=== PATIENT | male | born 1935 | race Caucasian/White ===

== ENCOUNTER 2016-09-04 11:56 | Inpatient (IN) | payer MEDICARE ==
[~2016-09-04] VITALS: Ht 180.3 cm; Wt 91.6 kg
[2016-09-20] MEDS ORDERED: ACET-703 PO (09:55)
[2016-09-20] MEDS ORDERED: AMLO10TA2 PO (09:55)
[2016-09-20] MEDS ORDERED: CHOL5000 PO (09:55)
[2016-09-21] MEDS ORDERED: SODIUM CHLORID 0.9% 500 ML IV PRN (05:45)
[2016-09-21] MEDS ORDERED: POVIDONE IODINE 5% (ANTISEPSIS KIT) 4 APPLICATIONS EACH NARE PRN (05:45)
[2016-09-21] MEDS ORDERED: ceFAZolin 2 GM PREMIX 50 ML IV SCH ×2 (05:45→07:00)
[2016-09-21] MEDS ORDERED: LACTATED RINGER'S 1000 ML IV PRN (05:45)
[2016-09-21] MEDS ORDERED: INSULIN HUMAN REGULAR 1,000 UNITS/10 ML VIAL SQ PRN (05:45)
[2016-09-21] MEDS ORDERED: METOPROLOL TARTRATE 25 MG TAB PO PRN (05:45)
[2016-09-21] MEDS ORDERED: CHLORHEXIDINE GLUCONATE 2 % 1 PACK (2 CLOTHS) TOPICAL PRN (05:45)
[2016-09-21] MEDS ORDERED: GELFOAM SIZE 100 ONE (06:15)
[2016-09-21 06:19] VITALS: BP 145/71; PULSE 67; RESP 20; TEMP 97.9; O2SAT 98
[2016-09-21] MEDS ORDERED: BUPIVACAINE/EPINEPHRINE 0.25% 50 ML VIAL ONE (06:30)
[2016-09-21] MEDS ORDERED: FAMOTIDINE 20 MG/2 ML VIAL ONE (07:23)
[2016-09-21] MEDS ORDERED: ACETAMINOPHEN 1000 MG/100 ML VIAL IV ONE (07:23)
[2016-09-21] MEDS ORDERED: SUGAMMADEX SODIUM 200 MG/2 ML VIAL IV PUSH ONE ×2 (07:23)
[2016-09-21] MEDS ORDERED: PROPOFOL 200 MG/20 ML AMP IV ONE (08:05)
[2016-09-21] MEDS ORDERED: NEOSTIGMINE 3 MG/3 ML SYR IV ONE (08:06)
[2016-09-21] MEDS ORDERED: ePHEDrine/NS 25 MG/5 ML SYR IV ONE (08:06)
[2016-09-21] MEDS ORDERED: ONDANSETRON HCL 4 MG/2 ML VIAL IV PUSH ONE (08:06)
[2016-09-21] MEDS ORDERED: NORMOSOL R INJ 2,000 ML IV ONE (08:07)
[2016-09-21] MEDS: SODIUM CHLOR 0.9% 1000 ML INJ 1,000 ML IV SCH ×2 (12:36→20:27)
[2016-09-21] MEDS ORDERED: Post-op Orders (for Pharmacy) MISC XX ONE (12:45)
[2016-09-21] MEDS ORDERED: SODIUM CHLORIDE 0.9% FLUSH 10 ML FLUSH IV FLUSH PRN (12:45)
[2016-09-21] MEDS ORDERED: oxyCODONE/ACETAMINOPHEN 5 MG/325 MG TAB PO PRN ×2 (12:45)
[2016-09-21] MEDS ORDERED: NALOXONE HCL 0.4 MG/ML AMP IV PRN (12:45)
[2016-09-21] MEDS ORDERED: HYDROmorphone HCL PF 1 MG/ML VIAL IV PRN (12:45)
[2016-09-21] MEDS ORDERED: *morphine SULFATE 8 MG/ML PERIprocedure ONLY ONE ×2 (12:54→13:08)
[2016-09-21] MEDS ORDERED: fentaNYL CITRATE 250 MCG/5 ML AMP ONE (13:37)
[2016-09-21] MEDS ORDERED: MIDAZOLAM HCL 2 MG/2 ML VIAL ONE (13:37)
[2016-09-21 14:02] LABS: HEMATOCRIT 32.3 % (39.0-51.0); MEAN CELL VOLUME 97.6 FL (80.0-100.0); MEAN CORPUSCULAR HGB CONC 33.8 % (32.0-36.0); PLATELET COUNT 213 TH/MM3 (150-450); RED BLOOD COUNT 3.31 MIL/MM3 (4.50-5.90); RED CELL DISTRIBUTION WIDTH 12.9 % (11.6-17.2); REVIEW FLAG FINAL; WHITE BLOOD COUNT 11.2 TH/MM3 (4.0-11.0)
[2016-09-21] MEDS: HYDROmorphone HCL PCA 6 MG/30 ML IV SCH (14:14)
[2016-09-21 14:29] LABS: BICARBONATE 20.4 MEQ/L (21.0-32.0); POTASSIUM 4.4 MEQ/L (3.5-5.1)
--- NOTE | 2016-09-21 15:30 | MP ---
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 SURGEON Michael Gonsales MD DIRECT MAIL CLERK Bridger Baez MD PROCEDURE PERFORMED 1. Cystoscopy. 2. Transurethral resection of the left ureteral orifice. 3. Right ureteral stent removal. 4. Left hand-assisted laparoscopic nephroureterectomy. PERTINENT FINDINGS 1. Successful coring out of the left ureteral orifice and bladder cuff. 2. Removal of the right ureteral stent. 3. Successful removal of the entire left renal unit with the bladder cuff and ureter without any violation of the kidney or gross tumor spillage. HISTORY OF PRESENT ILLNESS Taran Diaz is a 81-year-old male who was found to have bilateral upper tract urothelial carcinoma. The right distal ureter was found to have low grade urothelial cancer and this was ablated completely with laser ablation. The left kidney had significant amount of proximal urothelial carcinoma and attempts at ablation via laser was unsuccessful. The patient then completed a renal scan which identified minimal function to the left renal unit with a stent in place. Therefore, it was decided to remove the left renal unit with a nephroureterectomy given the high-grade disease on the left and minimal function of the left renal unit. The patient does have poor overall renal function with a creatinine greater than 2.5 and a GFR around 30. The patient understands that surgery may lead him to dialysis. The risks and benefits of the procedure were discussed in detail with the patient, he understands and agrees with the above plan. PROCEDURE IN DETAIL After proper informed consent was obtained, the patient was brought to the operating room and laid supine on the operating table. The patient was placed under general anesthesia. Bilateral SCDs were then placed. The patient was placed in lithotomy position, prepped and draped in standard sterile fashion. After appropriate timeout was completed, the rigid cystoscope was inserted through the urethrea into the bladder. The urethra mucosa was unremarkable without abnormalities or lesions identified throughout. Upon entering the bladder bilateral ureteral orifices with bilateral stents in place were noted. The bladder was investigated with a 70 degree lens which did not identify any abnormalities throughout. At this point attention was turned to the right ureteral orifice, grasping the right ureteral stent and this was removed from the right collecting system and bladder. At this point attention was turned to the left ureteral orifice. A Carson knife was then used and resection of the ureteral orifice was then completed down to the level of fat and beyond. After adequate resection of the ureteral orifice and bladder cuff, a 20-Chinese Valentine catheter was placed. The patient was then repositioned in a modified right lateral decubitus position with a kidney rest and slight flexion with all pressure points padded. Following this the patient was reprepped and draped. A midline incision was then made above the umbilicus approximately 7 cm in length. There is no evidence of adhesions noted upon entering through the peritoneum. At this point the Gelform pad was then placed into the wound. Following this the arthroscopic camera was inserted through the Gelform and visualized two ports placement at 5 mm port in the upper midline as well as a lower port in the 5 mm lower midline. At this point the hand was inserted into the hand port gel and the camera was placed into the 5 mm port and below the hand port and careful dissection was carried out around the kidney. The line of Toldt was taken down and the colon reflected medially. This was carried out all the way to the left iliacs. Following this there was significant fat noted around the kidney and careful dissection was carried out around the kidney in order to remove it in its entirety. The dissection was carried out freeing up the lateral and inferior portions as well as the posterior portions of the kidney. The superior aspect of the kidney was then freed up with blunt dissection and LigaSure. At this point all that remained was the hilum. This was carefully dissected out and the artery and vein were identified. The Endovascular stapler was then used to clamp across the hilum. After this was completed successfully no obvious bleeding was noted. Therefore, attention was then turned to freeing up the ureter. The ureter was carefully dissected from the left renal pelvis down to the level of the bladder. The ureter was able to be plucked from the bladder without difficulty and the entire specimen with the kidney and ureter successfully removed without any gross spillage of any tumor. Following this hemostasis was meticulously achieved. The patient's belly was irrigated with sterile water. At this point the midline fascial incision was closed using 1-0 PDS sutures. The skin was then stapled. The remaining port sites were then closed with cisco. The patient was then awoken from anesthesia and taken to Post Anesthesia Care Unit in good and stable condition. The patient tolerated the procedure without complication. DISPOSITION The patient will be admitted to the ICU overnight as careful observation. The patient will likely remain in house for a few days to insure his renal function stabilizes and that he recovers well. Vignesh Davenport/LENA /12:48 PM /3:08 PM MTDGloria
[2016-09-21 16:15] VITALS: BP 145/73; PULSE 80; RESP 12; TEMP 97.7; O2SAT 95
--- NOTE | 2016-09-21 17:07 | PD.CONS ---
HPI Service Critical Care Medicine Consult Requested By Urology Service Reason for Consult Critical Care Management Primary Care Physician Wilver Davis Jr, MD History of Present Illness 81 y/o man underwent uncomplicated left nephrectomy including ureter down to bladder today. Comes back to ICU looking great, breathing comfortably, warm and well perfused. Lungs: Clear, no wheezes or crackles. Comfortable respiratory pattern. Heart: NL S1S2, no m,r. No JVD. Neuro: Sleepy but awakes to minimal stimulation. Protects airway well. Overall impression: Stable respiratory and hemodynamic function s/p surgery. I anticipate no problems aside from moderate hypertension. Will write for prn meds. We will follow urine output closely, volume load if necessary, and keep Urology informed of any major issues - particularly urine output. Doris Watkins M.D. Social Services Past Family Social History Allergies: Coded Allergies: Medrol (Verified Adverse Reaction, Unknown, SHAKING, HYPER, INSOMNIA, ) Uncoded Allergies: steroids (Adverse Reaction, Severe, Irritability/Anxiety, 09/20/16) hyper and on edge Physical Exam Vital Signs Vital Signs Date Time Temp Pulse Resp B/P Pulse Ox O2 Delivery O2 Flow Rate FiO2 09/21/16 14:14 16 09/21/16 12:42 97.6 61 16 128/62 98 Nasal Cannula 3 09/21/16 06:19 97.9 67 20 145/71 98 Laboratory Laboratory Tests Test 09/21/16 09/21/16 06:25 13:48 Blood Type A POSITIVE Antibody Screen NEGATIVE Crossmatch Leukocyte-Reduced Red Blood Cells Blood Bank Comment White Blood Count 11.2 Red Blood Count 3.31 Hemoglobin 10.9 Hematocrit 32.3 Mean Corpuscular Volume 97.6 Mean Corpuscular Hemoglobin 33.0 Mean Corpuscular Hemoglobin 33.8 Concent Red Cell Distribution Width 12.9 Platelet Count 213 Mean Platelet Volume 6.8 Sodium Level 138 Potassium Level 4.4 Chloride Level 108 Carbon Dioxide Level 20.4 Anion Gap 10 Blood Urea Nitrogen 29 Creatinine 2.18 Estimat Glomerular Filtration 29 Rate Random Glucose 157 Calcium Level 7.9 Result Diagram: 09/21/16 1348 09/21/16 1348 Anuj Murdock MD September 21, 2016 17:07
[2016-09-21] MEDS ORDERED: hydrALAZINE HCL 20 MG/ML VIAL IV PUSH PRN (17:15)
[2016-09-21] MEDS: OXYBUTYNIN CHLORIDE 5 MG TAB PO SCH (17:41)
[2016-09-21] MEDS: ONDANSETRON HCL 4 MG/2 ML VIAL IV PRN (17:42)
[2016-09-21] MEDS: PCA - TOTAL MG DILAUDID DELIVERED PER SHIFT OTHER SCH ×2 (17:43→22:00)
[2016-09-21 18:00] VITALS: PULSE 76
[2016-09-21] MEDS ORDERED: SODIUM CHLOR 0.9% 1000 ML INJ 1,000 ML IV ONE (18:15)
[2016-09-21 19:00] VITALS: O2SAT 92
[2016-09-21 20:00] VITALS: BP 124/68; PULSE 79; RESP 12; TEMP 98.3; O2SAT 92
[2016-09-21] MEDS: SODIUM CHLORIDE 0.9% FLUSH 10 ML FLUSH IV FLUSH SCH (20:27)
[2016-09-21 22:00] VITALS: PULSE 78
[2016-09-21] MEDS ORDERED: SODIUM CHLORID 0.9% 500 ML INJ 500 ML IV ONE (22:00)
[2016-09-22] VITALS (13 sets, daily range): BP systolic 124–149; BP diastolic 54–86; PULSE 74–103; RESP 12–20; TEMP 97.8–98.6; O2SAT 92–95
[2016-09-22] MEDS: SODIUM CHLOR 0.9% 1000 ML INJ 1,000 ML IV SCH ×3 (04:37→20:51)
[2016-09-22 05:43] LABS: HEMATOCRIT 32.2 % (39.0-51.0); MEAN CELL VOLUME 99.2 FL (80.0-100.0); MEAN CORPUSCULAR HEMOGLOBIN 33.6 PG (27.0-34.0); MEAN CORPUSCULAR HGB CONC 33.9 % (32.0-36.0); PLATELET COUNT 213 TH/MM3 (150-450); RED BLOOD COUNT 3.25 MIL/MM3 (4.50-5.90); RED CELL DISTRIBUTION WIDTH 13.2 % (11.6-17.2); REVIEW FLAG FINAL; WHITE BLOOD COUNT 9.1 TH/MM3 (4.0-11.0)
[2016-09-22 06:04] LABS: BICARBONATE 18.4 MEQ/L (21.0-32.0); POTASSIUM 5.5 MEQ/L (3.5-5.1)
[2016-09-22] MEDS: PCA - TOTAL MG DILAUDID DELIVERED PER SHIFT OTHER SCH ×3 (06:20→21:49)
[2016-09-22 06:30] LABS: CALCIUM-PROTEIN CORRECTED 7.4 MG/DL (8.5-10.1)
[2016-09-22] MEDS ORDERED: SODIUM CHLORID 0.9% 500 ML INJ 500 ML IV ONE (06:45)
[2016-09-22] MEDS: OXYBUTYNIN CHLORIDE 5 MG TAB PO SCH ×3 (08:08→18:53)
[2016-09-22] MEDS: SODIUM CHLORIDE 0.9% FLUSH 10 ML FLUSH IV FLUSH SCH ×2 (08:08→20:51)
--- NOTE | 2016-09-22 08:52 | HHI.PR ---
Subjective Patient symptoms today POD#1 Left hand assist lap Nephroureterectomy Low urine output overnight, bolus with marginal improvement. Cr at 3.2 today. Pain well controlled. Objective Vital Signs Vital Signs Date Time Temp Pulse Resp B/P Pulse Ox O2 Delivery O2 Flow Rate FiO2 09/22/16 07:00 93 Nasal Cannula 4.00 09/22/16 06:20 12 09/22/16 06:00 80 09/22/16 04:00 78 09/22/16 04:00 97.8 78 15 132/64 94 09/22/16 02:00 77 09/22/16 00:00 98.0 74 12 126/69 93 09/22/16 00:00 74 09/21/16 22:00 78 09/21/16 22:00 16 09/21/16 20:00 98.3 79 12 124/68 92 09/21/16 20:00 79 09/21/16 19:00 92 Nasal Cannula 4.00 09/21/16 18:00 76 09/21/16 17:43 13 09/21/16 16:15 97.7 80 12 145/73 95 09/21/16 15:50 75 16 148/74 99 Nasal Cannula 3 09/21/16 14:45 69 16 137/67 97 Nasal Cannula 3 09/21/16 14:14 16 09/21/16 13:45 60 16 119/51 97 Nasal Cannula 3 09/21/16 13:30 54 16 119/57 97 Nasal Cannula 3 09/21/16 13:15 53 16 117/59 97 Nasal Cannula 3 09/21/16 13:00 59 16 120/62 96 Nasal Cannula 3 09/21/16 12:42 97.6 61 16 128/62 98 Nasal Cannula 3 Intake & Output 09/22/16 09/22/16 07:00 19:00 Intake Total 3873 ml Output Total 335 ml Balance 3538 ml Intake Oral 300 ml IV Total 3573 ml Output Urine Total 275 ml Drainage Total 60 ml # Bowel Movements 0 Result Diagram: 09/22/16 0459 09/22/16 0459 Objective Remarks NAD, AAOx3 Resp NL Ab S/ND; appropriately tender Incision with C/D/I dressings in place ANN-MARIE drain with bloody output, 60cc overnight Valentine in place, dark yellow, no clots; 250cc overnight Medications and IVs Current Medications Medications (Trade) Dose Ordered Sig/Néstor Route Start Time Stop Time Status Last Admin (NS 1000 ml Inj) 1,000 ml @ 125 mls/hr Q8H IV 09/21/16 12:36 09/22/16 04:37 (NS Flush) 2 ml UNSCH PRN IV FLUSH 09/21/16 12:45 (NS Flush) 2 ml BID IV FLUSH 09/21/16 21:00 09/21/16 20:27 (Percocet 5-325 Mg) 1 tab Q4H PRN PO 09/21/16 12:45 (Percocet 5-325 Mg) 2 tab Q4H PRN PO 09/21/16 12:45 (Dilaudid Pf Inj) 1 mg Q2H PRN IV 09/21/16 12:45 (Dilaudid Pf Inj) 2 mg Q2H PRN IV 09/21/16 12:45 (Ditropan) 5 mg TID PO 09/21/16 13:00 09/22/16 08:08 Ondansetron HCl 4 mg 4 mg Q6H PRN IV 09/21/16 12:45 09/21/16 17:42 (Ancef Inj/NS Inj) 100 ml @ 200 mls/hr Q12H IV 09/21/16 20:00 09/22/16 20:29 09/22/16 08:08 (Heparin Inj) 5,000 units Q12H SQ 09/22/16 12:00 (Narcan Inj) 0.4 mg UNSCH PRN IV 09/21/16 12:45 (Dilaudid CASTING TRUCKER Inj) 6 mg UNSCH IV 09/21/16 12:45 09/21/16 14:14 CASTING TRUCKER Dosage Infused (Pha) 1 Q8HR OTHER 09/21/16 14:00 09/22/16 06:20 (Trandate Inj) 20 mg Q3H PRN IV PUSH 09/21/16 17:15 (Apresoline Inj) 10 mg Q2H PRN IV PUSH 09/21/16 17:15 Assessment and Plan Assessment and Plan POD#1 LEft hand assist lap nephroureterectomy -Pain well controlled, CASTING TRUCKER -Clear liquid diet -Hb stable, Cr elevated, expected. Some elevation in potassium -Consult Nephrology given his CKD and potential need for post-op dialysis -Valentine catheter to remain in place for 2 week due to surgery -Ambulate, SCDs, Hep SQ Boaz Cordero MD September 22, 2016 08:52
[2016-09-22] MEDS: HEPARIN SODIUM - SQ 10,000 UNITS/ML VIAL SQ SCH (12:46)
--- NOTE | 2016-09-22 13:30 | HHI.CCPN ---
Subjective Remarks/Hospital Course 81 y/o man underwent uncomplicated left nephrectomy including ureter down to bladder today. Comes back to ICU looking great, breathing comfortably, warm and well perfused. Lungs: Clear, no wheezes or crackles. Comfortable respiratory pattern. Heart: NL S1S2, no m,r. No JVD. Neuro: Sleepy but awakes to minimal stimulation. Protects airway well. 05/05: Breathing comfortably. Warm, well perfused. Lungs clear. Overall impression: Stable respiratory and hemodynamic function s/p surgery. Creatinine up slightly, nephrology to see. Objective Vital Signs Date Time Temp Pulse Resp B/P Pulse Ox O2 Delivery O2 Flow Rate FiO2 09/22/16 12:00 98.5 101 12 146/86 93 149/61 09/22/16 07:00 Nasal Cannula 4.00 Intake and Output 09/21/16 09/21/16 09/22/16 08:00 16:00 00:00 Intake Total 1500 ml 2643 ml Output Total 370 ml 140 ml Balance 1130 ml 2503 ml Result Diagram: 09/22/16 0459 09/22/16 0459 Anuj Murdock MD September 22, 2016 13:30
--- NOTE | 2016-09-22 13:51 | PD.CONS ---
[facility] Service Nephrology Consult Requested By Dr. Cordero Reason for Consult Acute renal failure status post left nephrectomy Primary Care Physician Wilver Davis Jr, MD History of Present Illness Patient is 81-year-old the white male with a history of hypertension who has been admitted to left sided ureteral cancer and underwent a left nephrectomy with ureterectomy, patient postoperatively developed acute renal failure the blood pressure was stable during surgery his creatinine was high at 2.1 and currently 3.2 , urine output dropped and his potassium is 5.5 patient denies knowledge of kidney disease other than cancer of the left ureter. Review of Systems Constitutional: COMPLAINS OF: Fatigue Gastrointestinal: COMPLAINS OF: Abdominal pain Past Family Social History Allergies: Coded Allergies: Medrol (Verified Adverse Reaction, Unknown, SHAKING, HYPER, INSOMNIA, ) Uncoded Allergies: steroids (Adverse Reaction, Severe, Irritability/Anxiety, 09/20/16) hyper and on edge Past Medical History Hypertension Psoriasis Bladder cancer Left ureteral cancer with nonfunctioning kidney Osteoarthritis Past Surgical History Cataract Dentures TURBT Left hip surgery Left foot Reported Medications Reported Meds & Active Scripts Active Reported Tylenol Extra Strength (Acetaminophen) 500 Mg Tab 1,000 Mg PO DAILY PRN Amlodipine (Amlodipine Besylate) 10 Mg Tab 10 Mg PO DAILY Vitamin D3 (Cholecalciferol) 5,000 Unit Cap 5,000 Units PO DAILY Active Ordered Medications Current Medications Medications (Trade) Dose Ordered Sig/Néstor Route Start Time Stop Time Status Last Admin (NS 1000 ml Inj) 1,000 ml @ 125 mls/hr Q8H IV 09/21/16 12:36 09/22/16 12:46 (NS Flush) 2 ml UNSCH PRN IV FLUSH 09/21/16 12:45 (NS Flush) 2 ml BID IV FLUSH 09/21/16 21:00 09/21/16 20:27 (Percocet 5-325 Mg) 1 tab Q4H PRN PO 09/21/16 12:45 (Percocet 5-325 Mg) 2 tab Q4H PRN PO 09/21/16 12:45 (Dilaudid Pf Inj) 1 mg Q2H PRN IV 09/21/16 12:45 (Dilaudid Pf Inj) 2 mg Q2H PRN IV 09/21/16 12:45 (Ditropan) 5 mg TID PO 09/21/16 13:00 5/5/17 12:46 Ondansetron HCl 4 mg 4 mg Q6H PRN IV 09/21/16 12:45 09/21/16 17:42 (Ancef Inj/NS Inj) 100 ml @ 200 mls/hr Q12H IV 09/21/16 20:00 09/22/16 20:29 09/22/16 08:08 (Heparin Inj) 5,000 units Q12H SQ 09/22/16 12:00 09/22/16 12:46 (Narcan Inj) 0.4 mg UNSCH PRN IV 09/21/16 12:45 (Dilaudid CUSTOMER SERVICE COORDINATOR Inj) 6 mg UNSCH IV 09/21/16 12:45 09/21/16 14:14 CUSTOMER SERVICE COORDINATOR Dosage Infused (Pha) 1 Q8HR OTHER 09/21/16 14:00 09/22/16 06:20 (Trandate Inj) 20 mg Q3H PRN IV PUSH 09/21/16 17:15 (Apresoline Inj) 10 mg Q2H PRN IV PUSH 09/21/16 17:15 Family History One brother from bladder cancer Social History 40 packs years of cigarette smoking, denies alcohol Physical Exam Vital Signs Vital Signs Date Time Temp Pulse Resp B/P Pulse Ox O2 Delivery O2 Flow Rate FiO2 09/22/16 12:00 98.5 101 12 146/86 93 149/61 09/22/16 12:00 101 09/22/16 10:00 94 09/22/16 08:00 91 09/22/16 08:00 97.9 85 14 124/60 92 140/64 09/22/16 07:00 93 Nasal Cannula 4.00 09/22/16 06:20 12 09/22/16 06:00 80 09/22/16 04:00 78 09/22/16 04:00 97.8 78 15 132/64 94 09/22/16 02:00 77 09/22/16 00:00 98.0 74 12 126/69 93 09/22/16 00:00 74 09/21/16 22:00 78 09/21/16 22:00 16 09/21/16 20:00 98.3 79 12 124/68 92 09/21/16 20:00 79 09/21/16 19:00 92 Nasal Cannula 4.00 09/21/16 19:00 92 Nasal Cannula 4.00 09/21/16 18:00 76 09/21/16 17:43 13 09/21/16 16:15 97.7 80 12 145/73 95 09/21/16 15:50 75 16 148/74 99 Nasal Cannula 3 09/21/16 14:45 69 16 137/67 97 Nasal Cannula 3 09/21/16 14:14 16 09/21/16 13:45 60 16 119/51 97 Nasal Cannula 3 Physical Exam GENERAL: Well-nourished, well-developed patient. SKIN: Warm and dry. HEAD: Normocephalic. EYES: No scleral icterus. No injection or drainage. NECK: Supple, trachea midline. No JVD or lymphadenopathy. CARDIOVASCULAR: Regular rate and rhythm without murmurs, gallops, or rubs. RESPIRATORY: Breath sounds equal bilaterally. No accessory muscle use. GASTROINTESTINAL: Abdomen distended. Pain in place on the left side with some subcutaneous air EXTREMITIES: No cyanosis, or edema. NEUROLOGICAL: Awake, alert, and oriented x 3. Non-focal. Laboratory Laboratory Tests Test 09/21/16 09/22/16 13:48 04:59 White Blood Count 11.2 9.1 Red Blood Count 3.31 3.25 Hemoglobin 10.9 10.9 Hematocrit 32.3 32.2 Mean Corpuscular Volume 97.6 99.2 Mean Corpuscular Hemoglobin 33.0 33.6 Mean Corpuscular Hemoglobin 33.8 33.9 Concent Red Cell Distribution Width 12.9 13.2 Platelet Count 213 213 Mean Platelet Volume 6.8 7.3 Sodium Level 138 139 Potassium Level 4.4 5.5 Chloride Level 108 110 Carbon Dioxide Level 20.4 18.4 Anion Gap 10 11 Blood Urea Nitrogen 29 37 Creatinine 2.18 3.24 Estimat Glomerular Filtration 29 18 Rate Random Glucose 157 140 Calcium Level 7.9 7.4 Protein Corrected Calcium 7.4 Total Protein 7.1 Result Diagram: 09/22/16 0459 09/22/16 0459 Assessment and Plan Problem List: (1) Acute renal failure Plan: Patient is oliguric and the passing small amount of urine he may have poorly Functioning right kidney possibly of ATN Will check ultrasound kidneys Start him on diuretic Bumex drip Monitor urine output Consider dialysis (2) Hyperkalemia Plan: We'll start him on Bumex drip, give D50 Insulin, repeat K (3) Hypertension Plan: Monitor blood pressure (4) Bladder cancer Plan: Status post TURBTs in the past Samuel Rinaldi MD September 22, 2016 13:51
[2016-09-22] MEDS ORDERED: BUMETANIDE INJ 1 MG/4 ML VIAL IV PUSH ONE (14:00)
[2016-09-22] MEDS ORDERED: INSULIN HUMAN REGULAR 1,000 UNITS/10 ML VIAL IV PUSH ONE (14:00)
[2016-09-22] MEDS ORDERED: DEXTROSE 50% IN WATER 50 ML VIAL(D50) IV PUSH ONE (14:00)
[2016-09-22] MEDS: BUMETANIDE INJ 100 ML IV SCH (15:10)
--- NOTE | 2016-09-22 18:36 | RADRPT ---
EXAM DATE/TIME: 09/22/2016 17:07 [place] COMPARISON: No previous studies available for comparison. EXTERNAL COMPARISON : [facility], CT ABDOMEN & PELVIS W & W/O CONTRAST, March 16, 2016, [place] WITH LINWu SUTHER[place] 2016. INDICATIONS : Abnormal labs. Post left nephrectomy. MEDICAL HISTORY : Hypertension. Asthma. Abdominal pain. Bladder cancer. Left kidney cancer. Bladder cancer. Acute renal failure. SURGICAL HISTORY : Nephrectomy, left. Bilateral cataract removal. TURBT. Urethral dilation. Bladder cuff. Left foot surgery. Total left hip replacement. Ureterectomy. ENCOUNTER: Initial ACUITY: 1 day PAIN SCORE: 5/10 LOCATION: Bilateral flank MEASUREMENTS: RIGHT KIDNEY: 11.8 x 5.6 x 6.3 cm LEFT KIDNEY: s/p nephrectomy FINDINGS: RIGHT KIDNEY: There is moderate right hydronephrosis. A 7 mm lower pole stone is demonstrated. LEFT KIDNEY: Previous left nephrectomy. Soft tissue structure measuring 10.4 x 4.7 x 5.3 cm seen in the region of the nephrectomy bed. There is an organized fluid collection medial to the nephrectomy bed measuring 1 6.6 cm. BLADDER: Decompressed with a Valentine, grossly unremarkable CONCLUSION: 1. Moderate right hydronephrosis, etiology uncertain. Right ureteral calculus possible. A 7 mm stone is seen at the lower pole that appears to be nonobstructing.2. Reported left nephrectomy. Large soft tissue structure in the nephrectomy bed. Differential includes residual kidney, shifted spleen and re current mass. There is also a large fluid collection medial to the left renal fossa. A CT of the abdomen and pelvis is recommended, preferably with an without intravenous contrast. Curt Tafoya MD on September 22, 2016 at 18:30 Board Certified Radiologist. This report was verified electronically.
[2016-09-23] VITALS (17 sets, daily range): BP systolic 116–160; BP diastolic 56–89; PULSE 80–145; RESP 20–30; TEMP 98.1–98.8; O2SAT 94–98
[2016-09-23] MEDS: HEPARIN SODIUM - SQ 10,000 UNITS/ML VIAL SQ SCH ×2 (01:15→12:19)
[2016-09-23] MEDS: LABETALOL HCL 100 MG/20 ML VIAL IV PUSH PRN (04:09)
[2016-09-23] MEDS: HYDROmorphone HCL PCA 6 MG/30 ML IV SCH (04:23)
[2016-09-23] MEDS: SODIUM CHLOR 0.9% 1000 ML INJ 1,000 ML IV SCH ×3 (05:01→20:36)
[2016-09-23 05:03] LABS: MEAN CELL VOLUME 97.2 FL (80.0-100.0); MEAN CORPUSCULAR HEMOGLOBIN 34.5 PG (27.0-34.0); MEAN CORPUSCULAR HGB CONC 35.5 % (32.0-36.0); PLATELET COUNT 160 TH/MM3 (150-450); RED BLOOD COUNT 2.88 MIL/MM3 (4.50-5.90); RED CELL DISTRIBUTION WIDTH 13.3 % (11.6-17.2); REVIEW FLAG FINAL; WHITE BLOOD COUNT 8.5 TH/MM3 (4.0-11.0)
[2016-09-23 05:19] LABS: INTERNATIONAL NORMALIZED RATIO 1.1 RATIO; PROTHROMBIN TIME - PATIENT 12.5 SEC (9.8-11.6)
[2016-09-23 05:24] LABS: BICARBONATE 19.6 MEQ/L (21.0-32.0); POTASSIUM 4.4 MEQ/L (3.5-5.1)
[2016-09-23] MEDS: PCA - TOTAL MG DILAUDID DELIVERED PER SHIFT OTHER SCH (06:58)
--- NOTE | 2016-09-23 07:47 | HHI.PR ---
Subjective Patient symptoms today No acute issues overnight. Pain well controlled. Passing Flatus. Tolerating clears. Been OOB. Denies CP/SOB. On Bumex drip. Denies fevers, chills. Objective Vital Signs Vital Signs Date Time Temp Pulse Resp B/P Pulse Ox O2 Delivery O2 Flow Rate FiO2 09/23/16 06:58 17 09/23/16 06:00 96 09/23/16 04:53 22 09/23/16 04:23 20 09/23/16 04:00 98.5 96 22 152/70 98 09/23/16 04:00 96 09/23/16 02:00 96 09/23/16 00:00 98 09/23/16 00:00 98.4 98 22 160/72 94 09/22/16 22:00 96 09/22/16 21:49 14 09/22/16 20:47 93 Nasal Cannula 3.00 09/22/16 20:00 94 09/22/16 20:00 98.6 94 20 136/60 94 09/22/16 19:00 94 Nasal Cannula 3.00 09/22/16 18:00 103 09/22/16 16:00 98 09/22/16 16:00 98.3 98 14 140/73 95 128/54 09/22/16 14:08 28 09/22/16 14:00 96 09/22/16 12:00 98.5 101 12 146/86 93 149/61 09/22/16 12:00 101 09/22/16 10:00 94 09/22/16 08:00 91 09/22/16 08:00 97.9 85 14 124/60 92 140/64 Intake & Output 09/23/16 09/23/16 07:00 19:00 Intake Total 1975 ml Output Total 5105 ml Balance -3130 ml Intake Oral 120 ml IV Total 1855 ml Output Urine Total 5050 ml Drainage Total 55 ml # Bowel Movements 0 Result Diagram: 09/23/16 0356 09/23/16 0356 Objective Remarks NAD, AAOx3 Resp NL Ab S/ mild distention; appropriately tender Incision with C/D/I dressings in place ANN-MARIE drain serosanginous Valentine in place, clear, yellow Medications and IVs Current Medications Medications (Trade) Dose Ordered Sig/Néstor Route Start Time Stop Time Status Last Admin (NS 1000 ml Inj) 1,000 ml @ 125 mls/hr Q8H IV 09/21/16 12:36 09/23/16 05:01 (NS Flush) 2 ml UNSCH PRN IV FLUSH 09/21/16 12:45 (NS Flush) 2 ml BID IV FLUSH 09/21/16 21:00 09/21/16 20:27 (Percocet 5-325 Mg) 1 tab Q4H PRN PO 09/21/16 12:45 (Percocet 5-325 Mg) 2 tab Q4H PRN PO 09/21/16 12:45 (Dilaudid Pf Inj) 1 mg Q2H PRN IV 09/21/16 12:45 (Dilaudid Pf Inj) 2 mg Q2H PRN IV 09/21/16 12:45 (Ditropan) 5 mg TID PO 09/21/16 13:00 09/22/16 18:53 (Zofran Inj) 4 mg Q6H PRN IV 09/21/16 12:45 09/21/16 17:42 (Heparin Inj) 5,000 units Q12H SQ 09/22/16 12:00 09/23/16 01:15 (Narcan Inj) 0.4 mg UNSCH PRN IV 09/21/16 12:45 (Dilaudid POLE FRAMER Inj) 6 mg UNSCH IV 09/21/16 12:45 09/23/16 04:23 POLE FRAMER Dosage Infused (Pha) 1 Q8HR OTHER 09/21/16 14:00 09/23/16 06:58 (Trandate Inj) 20 mg Q3H PRN IV PUSH 09/21/16 17:15 Hydralazine HCl 10 mg 10 mg Q2H PRN IV PUSH 09/21/16 17:15 (Bumex Inj) 100 ml @ 4 mls/hr CONTINUOUS IV 09/22/16 15:45 09/22/16 15:10 Assessment and Plan Assessment and Plan POD #2 Left hand assist lap nephroureterectomy -D/C POLE FRAMER -Advance diet. -Hgb dropped to 9.9, likely dilutional as hemodynamically stable. Repeat in A.M. -Cr continues to rise, up to 3.4. On Bumex drip per Nephro. UOP dramatically increased, over >200 ml/hour. Hypokalemia resolved. Appreciate Nephrology input. -Renal U/S reviewed. Has right hydronephrosis. Manage conservatively for now. If Creatinine continues to rise, may need decompression. -GI/DVT prophylaxis -PT/OT Bridger Baez MD September 23, 2016 07:47
[2016-09-23] MEDS ORDERED: METOPROLOL TARTRATE 5 MG/5 ML VIAL ONE (08:21)
--- NOTE | 2016-09-23 08:43 | HHI.CCPN ---
Subjective Remarks/Hospital Course 81 y/o man underwent uncomplicated left nephrectomy including ureter down to bladder today. Comes back to ICU looking great, breathing comfortably, warm and well perfused. Lungs: Clear, no wheezes or crackles. Comfortable respiratory pattern. Heart: NL S1S2, no m,r. No JVD. Neuro: Sleepy but awakes to minimal stimulation. Protects airway well. 09/22: Breathing comfortably. Warm, well perfused. Lungs clear. 09/23: Good response to loop diuretic, > 5 liter, cut rate by 50%. New onset a- fib with RVR. Start cardizem for rate control, add amiodarone for conversion. Continue BID sq heparin, will add full anticoagulation if a-fib persists. Check mag, phos, k. Overall impression: Stable respiratory and hemodynamic function s/p surgery. Creatinine up slightly, nephrology advising. Objective Vital Signs Date Time Temp Pulse Resp B/P Pulse Ox O2 Delivery O2 Flow Rate FiO2 09/23/16 06:58 17 09/23/16 06:00 96 09/23/16 04:00 98.5 152/70 98 09/22/16 20:47 Nasal Cannula 3.00 Intake and Output 09/22/16 09/22/16 09/23/16 08:00 16:00 00:00 Intake Total 1230 ml 2196 ml 1007 ml Output Total 195 ml 210 ml 2030 ml Balance 1035 ml 1986 ml -1023 ml Result Diagram: 09/23/16 0356 09/23/16 0356 Anuj Murdock MD September 23, 2016 08:43
[2016-09-23] MEDS ORDERED: DILTIAZEM HCL 25 MG/5 ML VIAL IVP ONE (08:45)
[2016-09-23] MEDS ORDERED: AMIODARONE INJ 150 MG in DEXTROSE 5% IN WATER 100ML INJ 97 ML IV ONE ×2 (08:45)
[2016-09-23] MEDS: DOCUSATE SODIUM 100 MG CAP PO SCH ×2 (09:57→20:29)
[2016-09-23] MEDS: OXYBUTYNIN CHLORIDE 5 MG TAB PO SCH ×3 (09:57→18:01)
[2016-09-23] MEDS: SODIUM CHLORIDE 0.9% FLUSH 10 ML FLUSH IV FLUSH SCH ×2 (09:57→20:30)
[2016-09-23] MEDS: AMIODARONE INJ 450 MG in DEXTROSE 5% IN WATE(EXCEL) INJ 241 ML IV SCH ×4 (10:59→20:29)
[2016-09-23 15:30] LABS: MAGNESIUM 1.7 MG/DL (1.5-2.5)
--- NOTE | 2016-09-23 15:32 | HHI.NPPN ---
Subjective History of Present Illness 81-year-old the white male with a history of hypertension who has been admitted to left sided ureteral cancer and underwent a left nephrectomy with ureterectomy , patient postoperatively developed acute renal failure the blood pressure was stable during surgery his creatinine has been increasing. Additional Remarks Patient is alert, no SOB, not eating well. Objective Data Data 09/22/16 09/23/16 19:00 07:00 Intake Total 2196 ml 1975 ml Output Total 210 ml 5105 ml Balance 1986 ml -3130 ml Intake Oral 600 ml 120 ml IV Total 1596 ml 1855 ml Output Urine Total 175 ml 5050 ml Drainage Total 35 ml 55 ml # Bowel Movements 0 0 Vital Signs Date Time Temp Pulse Resp B/P Pulse Ox O2 Delivery O2 Flow Rate FiO2 09/23/16 14:00 86 09/23/16 13:23 86 20 158/68 97 09/23/16 12:00 80 09/23/16 12:00 98.3 80 29 148/56 94 09/23/16 10:00 110 09/23/16 09:23 133 29 118/60 96 09/23/16 09:08 145 30 135/79 96 09/23/16 08:53 140 25 120/66 96 09/23/16 08:38 28 116/62 95 09/23/16 08:00 98.8 112 27 148/89 95 09/23/16 08:00 95 09/23/16 07:00 95 Nasal Cannula 3.00 09/23/16 06:58 17 09/23/16 06:00 96 09/23/16 04:53 22 09/23/16 04:23 20 09/23/16 04:00 98.5 96 22 152/70 98 09/23/16 04:00 96 09/23/16 02:00 96 09/23/16 00:00 98 09/23/16 00:00 98.4 98 22 160/72 94 09/22/16 22:00 96 09/22/16 21:49 14 09/22/16 20:47 93 Nasal Cannula 3.00 09/22/16 20:00 94 09/22/16 20:00 98.6 94 20 136/60 94 09/22/16 19:00 94 Nasal Cannula 3.00 09/22/16 18:00 103 09/22/16 16:00 98 09/22/16 16:00 98.3 98 14 140/73 95 128/54 -: 09/23/16 0356 09/23/16 0356 Physical Exam General Appearance: No Acute Distress, Comfortable Eyes Eye Exam: Pupils Equal Throat Throat Exam: Oral Mucosa [place] & Moist Neck Neck Exam: Neck Supple Pulmonary Resp Exam: Breath Sounds Equal, No Distress, Rhonchi, Decreased Bases Cardiology CV Exam: Regular, Normal Sinus Rhythm Gastrointestinal/Abdomen GI Exam: Soft, Bowel Sounds Present, Distended Extremeties Extremities Exam: Trace Edema Neurologic Neuro Exam: Alert, Awake, Oriented Psychiatric Psych Exam: Appropriate Responses Assessment/Plan Assessment Summary: YOLA/Acute Renal Failure, CKD Stage III Problem List: (1) Acute renal failure Plan: Patient is non oliguric and the urine out put is much better. Creatinine continue to increase. Renal U/S noted, will get CT of abd., no IV Contrast. Continue IVF. (2) Hyperkalemia Plan: We'll start him on Bumex drip, give D50 Insulin, repeat K (3) Hypertension Plan: Monitor blood pressure (4) Bladder cancer Plan: Status post TURBTs in the past Duane Noel MD September 23, 2016 15:32
[2016-09-23] MEDS: BUMETANIDE INJ 100 ML IV SCH (16:57)
[2016-09-23] MEDS: ONDANSETRON HCL 4 MG/2 ML VIAL IV PRN (18:01)
--- NOTE | 2016-09-23 19:17 | RADRPT ---
EXAM DATE/TIME: 09/23/2016 17:42 [facility] COMPARISON: No previous studies available for comparison. INDICATIONS : Abdominal distention and pain post nephrectomy. ORAL CONTRAST: No oral contrast ingested. RADIATION DOSE: 19.76 CTDIvol (mGy) MEDICAL HISTORY : Carcinoma, bladder. SURGICAL HISTORY : Nephrectomy, left. Bladder cuff ENCOUNTER: Initial ACUITY: 1 day PAIN SCALE: 6/10 LOCATION: abdomen TECHNIQUE: Volumetric scanning of the abdomen and pelvis was performed. Using automated exposure control and ad justment of the mA and/or kV according to patient size, radiation dose was kept as low as reasonably achievable to obtain optimal diagnostic quality images. FINDINGS: No postop changes from a recent left-sided nephrectomy. There is some residual fluid in the retroperi toneum on the left side measuring about 7.5 cm x 5.3 cm and extending overlay of 13.5 cm. There is moderate to severe right-sided hydronephrosis and dilatation of the right ureter to just abo ve the bladder. Valentine catheter is present in the bladder. There is a small amount of free intraperitoneal air. There is a bowel containing paraumbilical hernia measuring about 2.3 cm in diameter. The afferent loo p is dilated and the efferent loop is decompressed which is characteristic of an incarcerated hernia resulting in at least a partial small bowel obstruction. The stomach is distended. There some layering sludge in the gallbladder. There is a drain in the left lower quadrant. There is previous left hip replacement. CONCLUSION: 1. There is a 2.3 cm left-sided paraumbilical hernia in the anterior abdominal wall containing a loop of bowel resulting in at least a partial small bowel obstruction. There is also gastric distention. 2. Postoperative recent left nephrectomy with residual fluid at the nephrectomy site and some residua l free air within the abdomen as well as subcutaneous air in the left chest and abdominal wall. Drain age catheter left lower quadrant. 3. Severe right-sided hydronephrosis and dilatation of right ureter to just above the bladder. Valentine catheter present in the bladder. [place] Umaña MD on September 23, 2016 at 19:09 Board Certified Radiologist. This report was verified electronically.
[2016-09-24] VITALS (12 sets, daily range): BP systolic 128–158; BP diastolic 64–87; PULSE 81–110; RESP 13–25; TEMP 98–98.7; O2SAT 93–100
[2016-09-24] MEDS: HEPARIN SODIUM - SQ 10,000 UNITS/ML VIAL SQ SCH ×3 (00:43→23:17)
[2016-09-24] MEDS: HYDROmorphone HCL PF 2 MG/ML VIAL IV PRN ×2 (02:15→13:46)
[2016-09-24] MEDS: ONDANSETRON HCL 4 MG/2 ML VIAL IV PRN ×3 (02:15→20:38)
[2016-09-24 04:40] LABS: HEMATOCRIT 30.9 % (39.0-51.0); MEAN CELL VOLUME 97.3 FL (80.0-100.0); MEAN CORPUSCULAR HEMOGLOBIN 33.7 PG (27.0-34.0); MEAN CORPUSCULAR HGB CONC 34.6 % (32.0-36.0); PLATELET COUNT 164 TH/MM3 (150-450); RED BLOOD COUNT 3.18 MIL/MM3 (4.50-5.90); RED CELL DISTRIBUTION WIDTH 13.1 % (11.6-17.2); REVIEW FLAG FINAL; WHITE BLOOD COUNT 9.7 TH/MM3 (4.0-11.0)
[2016-09-24 05:02] LABS: BICARBONATE 24.8 MEQ/L (21.0-32.0); POTASSIUM 3.7 MEQ/L (3.5-5.1)
[2016-09-24] MEDS: OXYBUTYNIN CHLORIDE 5 MG TAB PO SCH ×3 (08:39→18:17)
[2016-09-24] MEDS: SODIUM CHLORIDE 0.9% FLUSH 10 ML FLUSH IV FLUSH SCH ×2 (08:39→20:36)
[2016-09-24] MEDS: DOCUSATE SODIUM 100 MG CAP PO SCH ×2 (08:39→20:36)
--- NOTE | 2016-09-24 10:22 | HHI.NPPN ---
Subjective History of Present Illness 81-year-old the white male with a history of hypertension who has been admitted to left sided ureteral cancer and underwent a left nephrectomy with ureterectomy , patient postoperatively developed acute renal failure the blood pressure was stable during surgery his creatinine has been increasing. Additional Remarks Patient is alert, no SOB, not eating well, no abd. pain. Objective Data Data 09/23/16 09/24/16 19:00 07:00 Intake Total 936 ml 845 ml Output Total 3010 ml 2865 ml Balance -2074 ml -2020 ml Intake Oral 420 ml 480 ml IV Total 491 ml 365 ml Other 25 ml Output Urine Total 3000 ml 2825 ml Drainage Total 10 ml 40 ml # Bowel Movements 0 0 Vital Signs Date Time Temp Pulse Resp B/P Pulse Ox O2 Delivery O2 Flow Rate FiO2 09/24/16 10:00 86 09/24/16 08:00 98.1 84 13 155/84 98 09/24/16 08:00 90 09/24/16 07:00 98 Nasal Cannula 3.00 09/24/16 06:00 94 09/24/16 04:00 93 09/24/16 04:00 98.0 93 18 146/87 93 128/64 09/24/16 02:45 19 09/24/16 02:00 93 09/24/16 00:00 95 09/24/16 00:00 98.2 95 19 158/82 93 150/71 09/23/16 22:00 119 09/23/16 20:00 98.1 100 27 139/69 94 158/70 Arterial Line Automatic Cuff 09/23/16 20:00 100 09/23/16 18:00 100 09/23/16 16:00 86 09/23/16 16:00 98.7 86 30 146/64 98 09/23/16 14:00 86 09/23/16 13:23 86 20 158/68 97 09/23/16 12:00 80 09/23/16 12:00 98.3 80 29 148/56 94 -: 09/24/16 0420 09/24/16 0420 Physical Exam General Appearance: No Acute Distress, Comfortable Eyes Eye Exam: Pupils Equal Throat Throat Exam: Oral Mucosa [place] & Moist Neck Neck Exam: Neck Supple Pulmonary Resp Exam: Breath Sounds Equal, No Distress, Rhonchi, Decreased Bases Cardiology CV Exam: Regular, Normal Sinus Rhythm Gastrointestinal/Abdomen GI Exam: Soft, Bowel Sounds Present, Distended Extremeties Extremities Exam: Trace Edema Neurologic Neuro Exam: Alert, Awake, Oriented Psychiatric Psych Exam: Appropriate Responses Assessment/Plan Assessment Summary: YOLA/Acute Renal Failure, CKD Stage III Problem List: (1) Acute renal failure Plan: Patient is non oliguric and the urine out put is much better. Creatinine continue to increase. CT of abd. with no IV Contrast done and results noted. Since Creatinine still increasing, possibly will need Nephrostomy. I ask RN to call urology and let them know about CT and increasing Creatinine. D/W the family, Dr. Rinaldi will follow in AM. (2) Hyperkalemia Plan: We'll start him on Bumex drip, give D50 Insulin, repeat K (3) Hypertension Plan: Monitor blood pressure (4) Bladder cancer Plan: Status post TURBTs in the past Duane Noel MD September 24, 2016 10:22
[2016-09-24] MEDS ORDERED: POTASSIUM CHLOR 20 MEQ PREMIX 100 ML IV ONE (12:45)
--- NOTE | 2016-09-24 12:53 | HHI.PR ---
Subjective Patient symptoms today POD#3 Laparoscopic Hand-assist Left Nephroureterectomy Pain well controlled, however taking minimal pain medication. Afib developed yesterday, rate controlled with Amiodarone drip. +Nausea. Reports Heartburn. No BM. Tolerating some clear liquid diet. Creatinine continues to rise. Objective Vital Signs Vital Signs Date Time Temp Pulse Resp B/P Pulse Ox O2 Delivery O2 Flow Rate FiO2 09/24/16 10:00 86 09/24/16 08:00 98.1 84 13 155/84 98 09/24/16 08:00 90 09/24/16 07:00 98 Nasal Cannula 3.00 09/24/16 06:00 94 09/24/16 04:00 93 09/24/16 04:00 98.0 93 18 146/87 93 128/64 09/24/16 02:45 19 09/24/16 02:00 93 09/24/16 00:00 95 09/24/16 00:00 98.2 95 19 158/82 93 150/71 09/23/16 22:00 119 09/23/16 20:00 98.1 100 27 139/69 94 158/70 Arterial Line Automatic Cuff 09/23/16 20:00 100 09/23/16 18:00 100 09/23/16 16:00 86 09/23/16 16:00 98.7 86 30 146/64 98 09/23/16 14:00 86 09/23/16 13:23 86 20 158/68 97 Intake & Output 09/24/16 09/24/16 07:00 19:00 Intake Total 845 ml Output Total 2865 ml Balance -2020 ml Intake Oral 480 ml IV Total 365 ml Output Urine Total 2825 ml Drainage Total 40 ml # Bowel Movements 0 Result Diagram: 09/24/16 0420 09/24/16 0420 Imaging Last 48 hours Impressions Abdomen/Pelvis CT 09/23/16 0000 Signed Impressions: Service Date/Time: Friday, September 23, 2016 17:42 - CONCLUSION: 1. There is a 2.3 cm left-sided paraumbilical hernia in the anterior abdominal wall containing a loop of bowel resulting in at least a partial small bowel obstruction. There is also gastric distention. 2. Postoperative recent left nephrectomy with residual fluid at the nephrectomy site and some residual free air within the abdomen as well as subcutaneous air in the left chest and abdominal wall. Drainage catheter left lower quadrant. 3. Severe right-sided hydronephrosis and dilatation of right ureter to just above the bladder. Valentine catheter present in the bladder. [place] Umaña MD Objective Remarks NAD, AAOx3 Resp NL Ab S/mild distention; appropriately tender Incision c/d/i, cisco in place ANN-MARIE drain serosanginous, minimal output Valentine in place, clear, yellow, good UOP with Bumex Medications and IVs Current Medications Medications (Trade) Dose Ordered Sig/Néstor Route Start Time Stop Time Status Last Admin (NS Flush) 2 ml UNSCH PRN IV FLUSH 09/21/16 12:45 (NS Flush) 2 ml BID IV FLUSH 09/21/16 21:00 09/24/16 08:39 (Percocet 5-325 Mg) 1 tab Q4H PRN PO 09/21/16 12:45 (Percocet 5-325 Mg) 2 tab Q4H PRN PO 09/21/16 12:45 (Dilaudid Pf Inj) 2 mg Q2H PRN IV 09/21/16 12:45 09/24/16 02:15 (Ditropan) 5 mg TID PO 09/21/16 13:00 09/24/16 08:39 (Zofran Inj) 4 mg Q6H PRN IV 09/21/16 12:45 09/24/16 02:15 (Heparin Inj) 5,000 units Q12H SQ 09/22/16 12:00 09/24/16 00:43 (Trandate Inj) 20 mg Q3H PRN IV PUSH 09/21/16 17:15 Hydralazine HCl 10 mg 10 mg Q2H PRN IV PUSH 09/21/16 17:15 (Bumex Inj) 100 ml @ 2 mls/hr CONTINUOUS IV 09/22/16 15:45 09/23/16 16:57 Docusate Sodium 100 mg 100 mg BID PO 09/23/16 09:00 09/24/16 08:39 Diltiazem HCl 125 mg/Sodium Chloride 125 ml @ 0 mls/hr TITRATE IV 09/23/16 08:45 (Cordarone Inj/ D5W ([place]) Inj) 250 ml @ 0 mls/hr CONTINUOUS IV 09/23/16 08:45 09/23/16 20:29 Assessment and Plan Assessment and Plan POD #3 Left hand assist lap nephroureterectomy -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 Patient not asking for any pain medication, appears he has not received any, however with questioning he reports some pain. Will adjust IV pain medication. -Hgb stable at 10.7 today -Afib on Amiodarone drip. Further pain control may aid with this. Appreciate management per ICU. -Cr rising further today to 3.7, UOP improved, clear yellow -Renal ultrasound and CT scan noted regarding right hydronephrosis. However, it is unlikely obstructive process as he is making urine with Bumex. -In addition, review of prior CT scan in Feb 2016 with Nilesh Linoc reveals severe right hydronephrosis due to obstruction of right distal ureteral tumor. This right distal ureteral tumor was ablated x2 and wide open upon ureteroscopy inspection in Jun with a right ureteral stent placed. The right ureteral stent was removed at the time of the left nephroureterectomy. Also, his creatinine prior to any laser ablation and around the time of the Feb 2016 CT scan was in the level of 2 range with hydronephrosis noted then as well. -At this time, would like to hold of on any decompression of the right kidney as this would prove to be very difficult for a stent given the recent surgery and bladder cuff removal of the left. 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 -CT scan also mentions umbilical hernia with potential small bowel obstruction. This umbilical hernia was present prior to surgery as well. -GI/DVT prophylaxis -PT/OT -Appreciate ICU management team as well as Nephrology Boaz Phipps MD September 24, 2016 12:53
[2016-09-24] MEDS ORDERED: HYDROmorphone HCL PF 1 MG/ML VIAL IV PUSH PRN (13:00)
--- NOTE | 2016-09-24 13:04 | HHI.CCPN ---
Subjective Remarks/Hospital Course 81 y/o man underwent uncomplicated left nephrectomy including ureter down to bladder today. Comes back to ICU looking great, breathing comfortably, warm and well perfused. Lungs: Clear, no wheezes or crackles. Comfortable respiratory pattern. Heart: NL S1S2, no m,r. No JVD. Neuro: Sleepy but awakes to minimal stimulation. Protects airway well. 09/22: Breathing comfortably. Warm, well perfused. Lungs clear. 09/23: Good response to loop diuretic, > 5 liter, cut rate by 50%. New onset a- fib with RVR. Start cardizem for rate control, add amiodarone for conversion. Continue BID sq heparin, will add full anticoagulation if a-fib persists. Check mag, phos, k. 09/24: Back in NSR but increased ventricular ectopy, episodic burst of a-fib. Breathing much improved after bumex diuresis. Creatine rising; will reduce bumex gtt by 50% again today. Urine remains copious. Add low dose beta gage, continue amiodarone drip.Follow K, Mag, Phos closely. Overall impression: Stable respiratory and hemodynamic function s/p surgery. Creatinine up slightly, nephrology advising. Objective Vital Signs Date Time Temp Pulse Resp B/P Pulse Ox O2 Delivery O2 Flow Rate FiO2 09/24/16 10:00 86 09/24/16 08:00 98.1 13 155/84 98 09/24/16 07:00 Nasal Cannula 3.00 Intake and Output 09/23/16 09/23/16 09/24/16 08:00 16:00 00:00 Intake Total 968 ml 936 ml 452 ml Output Total 3075 ml 3010 ml 2170 ml Balance -2107 ml -2074 ml -1718 ml Result Diagram: 09/24/16 0420 09/24/16 0420 nAuj Murdock MD September 24, 2016 13:04
[2016-09-24] MEDS: MAGNESIUM SULFATE 1 GM PREMIX 100 ML IV SCH ×2 (13:45→15:12)
[2016-09-24] MEDS: PANTOPRAZOLE SODIUM 40 MG VIAL IV PUSH SCH (13:52)
[2016-09-24] MEDS: METOPROLOL TARTRATE 25 MG TAB PO SCH ×2 (13:52→20:36)
[2016-09-24] MEDS: AMIODARONE INJ 450 MG in DEXTROSE 5% IN WATE(EXCEL) INJ 241 ML IV SCH ×2 (14:26)
[2016-09-25] VITALS (14 sets, daily range): BP systolic 129–137; BP diastolic 64–79; PULSE 77–93; RESP 15–25; TEMP 98.2–98.8; O2SAT 93–98
[2016-09-25] MEDS: AMIODARONE INJ 450 MG in DEXTROSE 5% IN WATE(EXCEL) INJ 241 ML IV SCH ×4 (00:06→15:59)
[2016-09-25 04:10] LABS: HEMATOCRIT 31.1 % (39.0-51.0); MEAN CELL VOLUME 96.3 FL (80.0-100.0); MEAN CORPUSCULAR HEMOGLOBIN 34.2 PG (27.0-34.0); MEAN CORPUSCULAR HGB CONC 35.5 % (32.0-36.0); PLATELET COUNT 196 TH/MM3 (150-450); RED BLOOD COUNT 3.23 MIL/MM3 (4.50-5.90); RED CELL DISTRIBUTION WIDTH 13.3 % (11.6-17.2); REVIEW FLAG FINAL
[2016-09-25 04:32] LABS: POTASSIUM 3.2 MEQ/L (3.5-5.1)
[2016-09-25] MEDS: ONDANSETRON HCL 4 MG/2 ML VIAL IV PRN ×3 (05:38→21:11)
[2016-09-25] MEDS: DOCUSATE SODIUM 100 MG CAP PO SCH ×2 (08:07→23:30)
[2016-09-25] MEDS: METOPROLOL TARTRATE 25 MG TAB PO SCH ×2 (08:07→23:28)
[2016-09-25] MEDS: SODIUM CHLORIDE 0.9% FLUSH 10 ML FLUSH IV FLUSH SCH ×2 (08:07→22:08)
[2016-09-25] MEDS: OXYBUTYNIN CHLORIDE 5 MG TAB PO SCH ×3 (08:07→18:31)
[2016-09-25] MEDS: HYDROmorphone HCL PF 2 MG/ML VIAL IV PRN (09:48)
[2016-09-25] MEDS ORDERED: POTASSIUM CHLORIDE 20 MEQ CONTROLLED RELEASE TAB PO ONE (11:15)
[2016-09-25] MEDS: HEPARIN SODIUM - SQ 10,000 UNITS/ML VIAL SQ SCH ×2 (11:17→23:28)
[2016-09-25] MEDS ORDERED: ONDANSETRON HCL 4 MG/2 ML VIAL IV ONE (12:45)
[2016-09-25] MEDS: PANTOPRAZOLE SODIUM 40 MG VIAL IV PUSH SCH (12:47)
--- NOTE | 2016-09-25 16:37 | HHI.NPPN ---
Subjective History of Present Illness 81-year-old the white male with a history of hypertension who has been admitted to left sided ureteral cancer and underwent a left nephrectomy with ureterectomy , patient postoperatively developed acute renal failure the blood pressure was stable during surgery his creatinine has been increasing. Additional Remarks Patient is alert, no SOB, not eating well, having nausea and vomiting Objective Data Data 09/24/16 09/25/16 18:59 06:59 Intake Total 444 ml 1340 ml Output Total 1900 ml 2525 ml Balance -1456 ml -1185 ml Intake Oral 240 ml 480 ml IV Total 204 ml 860 ml Output Urine Total 1800 ml 2400 ml Emesis 100 ml 100 ml Drainage Total 25 ml # Bowel Movements 0 0 Vital Signs Date Time Temp Pulse Resp B/P Pulse Ox O2 Delivery O2 Flow Rate FiO2 09/25/16 14:00 77 09/25/16 12:00 78 09/25/16 12:00 98.2 78 25 129/64 95 09/25/16 10:18 14 09/25/16 10:00 92 09/25/16 09:07 22 09/25/16 08:00 98.2 93 15 133/67 94 09/25/16 08:00 93 09/25/16 07:00 97 Nasal Cannula 3.00 09/25/16 06:00 82 09/25/16 04:00 98.5 81 20 133/78 97 09/25/16 04:00 81 09/25/16 02:00 91 09/25/16 00:00 88 09/25/16 00:00 98.8 81 15 136/68 98 09/24/16 22:00 91 09/24/16 20:00 94 09/24/16 20:00 98.5 95 18 148/69 100 09/24/16 19:00 98 Nasal Cannula 3.00 09/24/16 18:00 84 -: 09/25/16 0330 09/25/16 0330 Physical Exam General Appearance: No Acute Distress, Comfortable Eyes Eye Exam: Pupils Equal Throat Throat Exam: Oral Mucosa [place] & Moist Neck Neck Exam: Neck Supple Pulmonary Resp Exam: Breath Sounds Equal, No Distress, Rhonchi, Decreased Bases Cardiology CV Exam: Regular Gastrointestinal/Abdomen GI Exam: Soft, Distended Extremeties Extremities Exam: Trace Edema Neurologic Neuro Exam: Alert, Awake, Oriented Psychiatric Psych Exam: Appropriate Responses Assessment/Plan Assessment Summary: YOLA/Acute Renal Failure, CKD Stage III Problem List: (1) Acute renal failure Plan: Patient is non oliguric and the urine out put is much better. Creatinine continue to increase. CT of abd. with no IV Contrast done and results noted. Since Creatinine still increasing, Has hydronephrosis right side I will stop Bumex Replace potassium He may need IV fluids as partial intestinal obstruction He has some obstruction on the right side. Is moderate and urology is aware discussed with Dr. Elias I discussed with Dr. Anuj Landry and he will follow the patient for tomorrow as Patient recalls that he has seen him in the past and forgot about it (2) Hyperkalemia Plan: Resolved (3) Hypertension Plan: Monitor blood pressure (4) Bladder cancer Plan: Status post TURBTs in the past Samuel Rinaldi MD September 25, 2016 16:37
--- NOTE | 2016-09-25 16:39 | HHI.CCPN ---
Subjective Remarks/Hospital Course 81 y/o man underwent uncomplicated left nephrectomy including ureter down to bladder today. Comes back to ICU looking great, breathing comfortably, warm and well perfused. 09/22: Breathing comfortably. Warm, well perfused. Lungs clear. 09/23: Good response to loop diuretic, > 5 liter, cut rate by 50%. New onset a- fib with RVR. Start cardizem for rate control, add amiodarone for conversion. Continue BID sq heparin, will add full anticoagulation if a-fib persists. Check mag, phos, k. 09/24: Back in NSR but increased ventricular ectopy, episodic burst of a-fib. Breathing much improved after bumex diuresis. Creatine rising; will reduce bumex gtt by 50% again today. Urine remains copious. Add low dose beta gage, continue amiodarone drip.Follow K, Mag, Phos closely. 09/25: Creat worsening, Bumex Dcd. Continues to have nausea and vomiting. CT of the abdomen pelvis from 09/23/16 shows left paraumbilical hernia containing a loop of small bowel. At least partial small bowel obstruction. CT also showed severe right hydronephrosis-urology and nephrology aware Objective Vital Signs Date Time Temp Pulse Resp B/P Pulse Ox O2 Delivery O2 Flow Rate FiO2 09/25/16 14:00 77 09/25/16 12:00 98.2 25 129/64 95 09/25/16 07:00 Nasal Cannula 3.00 Intake and Output 09/24/16 09/24/16 09/25/16 08:00 16:00 00:00 Intake Total 393 ml 444 ml 861 ml Output Total 695 ml 1900 ml 1020 ml Balance -302 ml -1456 ml -159 ml Result Diagram: 09/25/16 0330 09/25/16 0330 Objective Remarks General: Mild to moderate distress, Nauseous HEENT: Pupils Equal, oral Mucosa [place] & Moist Neck: Neck Supple Pulmonary: Breath Sounds Equal, No Distress, Rhonchi, Decreased Bases Cardiology: Regular, Normal Sinus Rhythm Gastrointestinal: Soft, Distended. Mild tenderness L upper and lower quadrant Extremities Exam: Trace Edema Neuro Exam: Alert, Awake, Oriented Urinary Catheter: Yes Assessment to: Continue A/P Assessment and Plan ASSESSMENT Status post left nephrectomy Acute renal failure Right hydronephrosis Small bowel obstruction/right paraumbilical hernia containing a loop of small bowel Plan: -Patient is non oliguric and the urine out put is improvement creatinine continued to rise 3.9 today -Discontinue IV Bumex -Severe hydronephrosis, urology is aware -Replace potassium -Start IV fluids given partial intestinal obstruction -Consult general surgery, D/W Jina Ace -Keep NPO -IV Protonix. Heparin 5000 sq q12 -Monitor BP Hypertension CCT 30 Min. D/W General surgery Shannan Elias MD September 25, 2016 16:39 Shannan Elias MD September 25, 2016 16:39
--- NOTE | 2016-09-25 16:53 | HHI.PR ---
Subjective Patient symptoms today POD#4 Lap hand assist left nephroureterectomy -Pain well controlled. Persistent N/V, concern for ileus. Valentine clear urine. Cr continues to rise to 3.9 today. Objective Vital Signs Vital Signs Date Time Temp Pulse Resp B/P Pulse Ox O2 Delivery O2 Flow Rate FiO2 09/25/16 14:00 77 09/25/16 12:00 78 09/25/16 12:00 98.2 78 25 129/64 95 09/25/16 10:18 14 09/25/16 10:00 92 09/25/16 09:07 22 09/25/16 08:00 98.2 93 15 133/67 94 09/25/16 08:00 93 09/25/16 07:00 97 Nasal Cannula 3.00 09/25/16 06:00 82 09/25/16 04:00 98.5 81 20 133/78 97 09/25/16 04:00 81 09/25/16 02:00 91 09/25/16 00:00 88 09/25/16 00:00 98.8 81 15 136/68 98 09/24/16 22:00 91 09/24/16 20:00 94 09/24/16 20:00 98.5 95 18 148/69 100 09/24/16 19:00 98 Nasal Cannula 3.00 09/24/16 18:00 84 Intake & Output 09/25/16 09/25/16 07:00 19:00 Intake Total 1340 ml 631 ml Output Total 2525 ml 1100 ml Balance -1185 ml -469 ml Intake Oral 480 ml 480 ml IV Total 860 ml 151 ml Output Urine Total 2400 ml 900 ml Emesis 100 ml 150 ml Drainage Total 25 ml 50 ml # Bowel Movements 0 0 Result Diagram: 09/25/16 0330 09/25/16 0330 Objective Remarks NAD, AAOx3 Resp NL Ab S/improved distention; appropriately tender Incision c/d/i, cisco in place ANN-MARIE drain serosanginous, minimal output Valentine in place, clear, yellow, good UOP; Bumex dose decreased Medications and IVs Current Medications Medications (Trade) Dose Ordered Sig/Néstor Route Start Time Stop Time Status Last Admin (NS Flush) 2 ml UNSCH PRN IV FLUSH 09/21/16 12:45 (NS Flush) 2 ml BID IV FLUSH 09/21/16 21:00 09/24/16 20:36 (Percocet 5-325 Mg) 1 tab Q4H PRN PO 09/21/16 12:45 09/25/16 08:07 (Percocet 5-325 Mg) 2 tab Q4H PRN PO 09/21/16 12:45 (Dilaudid Pf Inj) 2 mg Q2H PRN IV 09/21/16 12:45 09/25/16 09:48 (Ditropan) 5 mg TID PO 09/21/16 13:00 09/25/16 08:07 (Zofran Inj) 4 mg Q6H PRN IV 09/21/16 12:45 09/25/16 11:16 (Heparin Inj) 5,000 units Q12H SQ 09/22/16 12:00 09/25/16 11:17 (Trandate Inj) 20 mg Q3H PRN IV PUSH 09/21/16 17:15 (Apresoline Inj) 10 mg Q2H PRN IV PUSH 09/21/16 17:15 09/24/16 18:23 Docusate Sodium 100 mg 100 mg BID PO 09/23/16 09:00 09/25/16 08:07 Diltiazem HCl 125 mg/Sodium Chloride 125 ml @ 0 mls/hr TITRATE IV 09/23/16 08:45 (Cordarone Inj/ D5W ([place]) Inj) 250 ml @ 0 mls/hr CONTINUOUS IV 09/23/16 08:45 09/25/16 15:59 (Protonix Inj) 40 mg Q24H IV PUSH 09/24/16 14:00 09/25/16 12:47 (Dilaudid Pf Inj) 0.2 mg Q4H PRN IV PUSH 09/24/16 13:00 (Norvasc) 10 mg DAILY PO 09/24/16 13:00 09/25/16 08:07 Metoprolol Tartrate 25 mg 25 mg Q12HR PO 09/24/16 13:00 09/25/16 08:07 Potassium Chloride 100 ml @ 50 mls/hr BOLUS ONCE IV 09/25/16 17:00 09/25/16 18:59 (NS + KCl 20 Meq Inj) 1,000 ml @ 84 mls/hr [id number] IV 09/25/16 17:00 Assessment and Plan Assessment and Plan POD #4 Left hand assist lap nephroureterectomy -Continue pain control -Hgb stable 11.1 today -Afib controlled with Amiodarone drip. HR currently 80s -Cr continues to rise. Consider restarting fluids and pulling back/ discontinuing the Bumex. Patient is negative on I/Os, concern for dehydration and with current UOP. -Persistent N/V. Agree with NGT placement today -Continue Hep SQ, ambulation -Will check ANN-MARIE creatinine after stabilization from N/V and Creatinine -Valentine catheter to remain in place for 2 weeks post-op. Boaz Cordero MD September 25, 2016 16:53
[2016-09-25] MEDS ORDERED: POTASSIUM CHLOR 20 MEQ PREMIX 100 ML IV ONE (17:00)
[2016-09-25] MEDS: NS + KCL 20 MEQ INJ 1,000 ML IV SCH (18:31)
--- NOTE | 2016-09-25 18:59 | RADRPT ---
EXAM DATE/TIME: 09/25/2016 18:35 [facility] COMPARISON: No previous studies available for comparison. INDICATIONS : Evaluate for ileus Vomiting MEDICAL HISTORY : Carcinoma, bladder. SURGICAL HISTORY : Nephrectomy, left. Bladder cuff ENCOUNTER: Initial ACUITY: 3 days PAIN SCORE: 3/10 LOCATION: Abdomen FINDINGS: A surgical drain is present in the left lower quadrant. Skin cisco are present. There is diffuse mo derate gaseous distention of small bowel throughout the abdomen. Mild gaseous distention of the colon also noted. The distal colon appears decompressed. There are no suspicious calcific densities. Phleb oliths in the right pelvis. Degenerative changes are noted in the spine and right hip. Left total hip arthroplasty is present. CONCLUSION: Moderate diffuse gaseous distention of small bowel Curt Bee MD on September 25, 2016 at 18:56 Board Certified Radiologist. This report was verified electronically.
[2016-09-25] MEDS ORDERED: LORazepam 2 MG/ML VIAL IV SCH (20:30)
[2016-09-25] MEDS: BISACODYL EC 5 MG TABEC PO SCH (23:28)
[2016-09-25] MEDS: MAGNESIUM CITRATE SOLN 300 ML BTL PO SCH (23:29)
[2016-09-26] VITALS (10 sets, daily range): BP systolic 125–156; BP diastolic 69–77; PULSE 64–101; RESP 14–24; TEMP 96.8–98.8; O2SAT 89–95
[2016-09-26] MEDS: BISACODYL EC 5 MG TABEC PO SCH (03:01)
[2016-09-26 03:48] LABS: AUTOMATED NEUTROPHIL # 3.9 TH/MM3 (1.8-7.7); BASOPHIL % 0.1 % (0.0-2.0); EOSINOPHIL % 0.1 % (0.0-4.0); HEMATOCRIT 32.4 % (39.0-51.0); HEMO FLAGS DIFF FINAL; LYMPH % 5.5 % (9.0-44.0); LYMPHOCYTE # 0.3 TH/MM3 (1.0-4.8); MEAN CELL VOLUME 96.4 FL (80.0-100.0); MEAN CORPUSCULAR HEMOGLOBIN 34.1 PG (27.0-34.0); MEAN CORPUSCULAR HGB CONC 35.4 % (32.0-36.0); MONO % 18.5 % (0.0-8.0); NEUT % 75.8 % (16.0-70.0); PLATELET COUNT 202 TH/MM3 (150-450); RED BLOOD COUNT 3.37 MIL/MM3 (4.50-5.90); RED CELL DISTRIBUTION WIDTH 13.2 % (11.6-17.2); WHITE BLOOD COUNT 5.2 TH/MM3 (4.0-11.0)
[2016-09-26 04:09] LABS: ALKALINE PHOSPHATASE 77 U/L (45-117); ALT (GPT) 12 U/L (12-78); ANION GAP 13 MEQ/L (5-15); AST (GOT) 13 U/L (15-37); BICARBONATE 26.8 MEQ/L (21.0-32.0); BLOOD UREA NITROGEN 91 MG/DL (7-18); CHLORIDE 95 MEQ/L (98-107); GLOMERULAR FILTRATION RATE 13 ML/MIN (>89); MAGNESIUM 2.8 MG/DL (1.5-2.5); POTASSIUM 3.3 MEQ/L (3.5-5.1); SODIUM (NA) 135 MEQ/L (136-145); TOTAL BILIRUBIN ADULT 0.7 MG/DL (0.2-1.0)
[2016-09-26] MEDS: ONDANSETRON HCL 4 MG/2 ML VIAL IV PRN ×3 (04:50→13:45)
[2016-09-26] MEDS: MAGNESIUM CITRATE SOLN 300 ML BTL PO SCH (04:55)
[2016-09-26] MEDS: NS + KCL 20 MEQ INJ 1,000 ML IV SCH ×2 (05:12→21:16)
--- NOTE | 2016-09-26 06:19 | RADRPT ---
EXAM DATE/TIME: 09/26/2016 05:02 [facility] COMPARISON: No previous studies available for comparison. INDICATIONS : Respiratory distress. MEDICAL HISTORY : Carcinoma, bladder. SURGICAL HISTORY : Nephrectomy, left. ENCOUNTER: Initial ACUITY: 1 day PAIN SCORE: Non-responsive. LOCATION: Bilateral chest FINDINGS: A single portable frontal view of the chest is blurred by breathing motion artifact. Low lung volumes . Bibasilar consolidation. No effusions. Heart is normal in size. Bony structures are unremarkable. CONCLUSION: Hypoinflation with bibasilar atelectasis. Shalom Chery Jr., MD on September 26, 2016 at 6:17 Board Certified Radiologist. This report was verified electronically.
[2016-09-26] MEDS: HEPARIN SODIUM - SQ 10,000 UNITS/ML VIAL SQ SCH (11:53)
[2016-09-26] MEDS: AMIODARONE INJ 450 MG in DEXTROSE 5% IN WATE(EXCEL) INJ 241 ML IV SCH ×2 (11:54)
[2016-09-26] MEDS: SODIUM CHLORIDE 0.9% FLUSH 10 ML FLUSH IV FLUSH SCH ×2 (11:54→21:21)
[2016-09-26] MEDS: OXYBUTYNIN CHLORIDE 5 MG TAB PO SCH ×3 (13:00→21:19)
[2016-09-26] MEDS: METOPROLOL TARTRATE 25 MG TAB PO SCH ×2 (13:34→21:17)
[2016-09-26] MEDS: PANTOPRAZOLE SODIUM 40 MG VIAL IV PUSH SCH (13:38)
--- NOTE | 2016-09-26 15:31 | HHI.CCPN ---
Subjective Remarks/Hospital Course 81 y/o man underwent uncomplicated left nephrectomy including ureter down to bladder today. Comes back to ICU looking great, breathing comfortably, warm and well perfused. 09/22: Breathing comfortably. Warm, well perfused. Lungs clear. 09/23: Good response to loop diuretic, > 5 liter, cut rate by 50%. New onset a- fib with RVR. Start cardizem for rate control, add amiodarone for conversion. Continue BID sq heparin, will add full anticoagulation if a-fib persists. Check mag, phos, k. 09/24: Back in NSR but increased ventricular ectopy, episodic burst of a-fib. Breathing much improved after bumex diuresis. Creatine rising; will reduce bumex gtt by 50% again today. Urine remains copious. Add low dose beta gage, continue amiodarone drip.Follow K, Mag, Phos closely. 09/25: Creat worsening, Bumex Dcd. Continues to have nausea and vomiting. CT of the abdomen pelvis from 09/23/16 shows left paraumbilical hernia containing a loop of small bowel. At least partial small bowel obstruction. CT also showed severe right hydronephrosis-urology and nephrology aware 09/26: Cr is 4.5 today, SB follow through done pending now. D/W Dr. Cordero- patient is nonoliguric, and at this time does not meet criteria for starting hemodialysis. In case he needs hemodialysis Dr. Cordero will place a nephrostomy tube for decompression Objective Vital Signs Date Time Temp Pulse Resp B/P Pulse Ox O2 Delivery O2 Flow Rate FiO2 09/26/16 12:00 82 09/26/16 12:00 96.8 21 136/70 92 09/26/16 08:42 21 09/26/16 08:00 Room Air 09/25/16 19:00 2.00 Intake and Output 09/25/16 09/25/16 09/26/16 08:00 16:00 00:00 Intake Total 479 ml 631 ml 356 ml Output Total 1505 ml 1100 ml 1035 ml Balance -1026 ml -469 ml -679 ml Result Diagram: 09/26/16 0329 09/26/16 0329 Objective Remarks General: Mild distress due to nausea HEENT: Pupils equal, oral Mucosa [place] & Moist Neck: Neck Supple Pulmonary: Breath Sounds Equal, No Distress, Rhonchi, Decreased Bases Cardiology: Regular, Normal Sinus Rhythm Gastrointestinal: Soft, Distended. Mild tenderness L upper and lower quadrant Extremities Exam: Trace Edema Neuro Exam: Alert, Awake, Oriented No FND A/P Assessment and Plan ASSESSMENT Status post left nephrectomy Acute renal failure Right hydronephrosis Small bowel obstruction/right paraumbilical hernia containing a loop of small bowel Plan: -Patient is non oliguric and the urine out put adequate creatinine continued to rise 4.5 today -Off IV Bumex -Severe hydronephrosis, urology is aware D/W Dr. Cordero- patient is nonoliguric, and at this time does not meet criteria for starting hemodialysis. In case he needs hemodialysis Dr. Cordero will place a nephrostomy tube for decompression -IV fluids given partial intestinal obstruction, NS 84 ml per hour -Consulted general surgery, D/W Dr. Hartmann -Keep NPO. patient refuses NGT -IV Protonix. Heparin 5000 sq q12 -Monitor BP Hypertension CCT 30 Min. D/W General surgery, Urology and bedside RN Shannan Elias MD September 26, 2016 15:31
[2016-09-26] MEDS ORDERED: LORazepam 2 MG/ML VIAL IV ONE (17:15)
[2016-09-26] MEDS ORDERED: MIDAZOLAM HCL 5 MG/ML VIAL (1 ML) ONE (17:19)
--- NOTE | 2016-09-26 18:56 | HHI.PR ---
Subjective Patient symptoms today POD#5 Hand assist Left nephroureterectomy -Pain well controlled. Afib controlled with Amio drip. NGT placed with over 1.5L of fluid removed. UOP remains good, off Bumex Objective Vital Signs Vital Signs Date Time Temp Pulse Resp B/P Pulse Ox O2 Delivery O2 Flow Rate FiO2 09/26/16 17:50 92 Nasal Cannula 6.00 09/26/16 17:00 90 Nasal Cannula 3.00 09/26/16 16:00 64 09/26/16 16:00 98.8 66 15 125/69 92 09/26/16 12:00 82 09/26/16 12:00 96.8 82 21 136/70 92 09/26/16 08:42 89 21 09/26/16 08:00 94 Room Air 09/26/16 08:00 97.7 78 20 142/71 94 09/26/16 08:00 78 09/26/16 06:00 67 09/26/16 04:00 65 09/26/16 04:00 97.9 86 16 156/72 95 09/26/16 02:00 68 09/26/16 00:00 68 09/26/16 00:00 98.7 101 14 143/77 92 Arterial Line 09/25/16 22:00 82 09/25/16 20:00 92 09/25/16 20:00 98.6 82 20 137/79 Arterial Line 09/25/16 19:00 93 Nasal Cannula 2.00 09/25/16 19:00 93 Nasal Cannula 2.00 Intake & Output 09/26/16 09/26/16 07:00 19:00 Intake Total 712 ml 784 ml Output Total 1975 ml 2060 ml Balance -1263 ml -1276 ml IV Total 712 ml 784 ml Output Urine Total 1200 ml 500 ml Gastric Drainage Total 100 ml 1500 ml Emesis 600 ml Drainage Total 75 ml 60 ml # Bowel Movements 0 Result Diagram: 09/26/16 0329 09/26/16 032 Imaging Last 24 hours Impressions Chest X-Ray 09/26/16 0600 Signed Impressions: Service Date/Time: Monday, September 26, 2016 05:02 - CONCLUSION: Hypoinflation with bibasilar atelectasis. Shalom Chery Jr., MD Objective Remarks NAD, AAOx3 Resp NL Ab S/improved distention; appropriately tender Incision c/d/i, cisco in place ANN-MARIE drain serosanginous, 60cc output Valentine in place, clear, yellow, good UOP; Bumex dose decreased Ab with reducible umbilical hernia Medications and IVs Current Medications Medications (Trade) Dose Ordered Sig/Néstor Route Start Time Stop Time Status Last Admin (NS Flush) 2 ml UNSCH PRN IV FLUSH 09/21/16 12:45 (NS Flush) 2 ml BID IV FLUSH 09/21/16 21:00 09/26/16 11:54 (Percocet 5-325 Mg) 1 tab Q4H PRN PO 09/21/16 12:45 09/25/16 08:07 (Percocet 5-325 Mg) 2 tab Q4H PRN PO 09/21/16 12:45 (Dilaudid Pf Inj) 2 mg Q2H PRN IV 09/21/16 12:45 09/25/16 09:48 (Ditropan) 5 mg TID PO 09/21/16 13:00 09/26/16 13:34 (Zofran Inj) 4 mg Q6H PRN IV 09/21/16 12:45 09/26/16 13:45 (Heparin Inj) 5,000 units Q12H SQ 09/22/16 12:00 09/26/16 11:53 (Trandate Inj) 20 mg Q3H PRN IV PUSH 09/21/16 17:15 (Apresoline Inj) 10 mg Q2H PRN IV PUSH 09/21/16 17:15 09/24/16 18:23 Docusate Sodium 100 mg 100 mg BID PO 09/23/16 09:00 09/25/16 23:30 (Cardizem Inj/NS Inj) 125 ml @ 0 mls/hr TITRATE IV 09/23/16 08:45 (Protonix Inj) 40 mg Q24H IV PUSH 09/24/16 14:00 09/26/16 13:38 (Dilaudid Pf Inj) 0.2 mg Q4H PRN IV PUSH 09/24/16 13:00 (Norvasc) 10 mg DAILY PO 09/24/16 13:00 09/26/16 13:34 Metoprolol Tartrate 25 mg 25 mg Q12HR PO 09/24/16 13:00 09/26/16 13:34 (NS + KCl 20 Meq Inj) 1,000 ml @ 84 mls/hr [id number] IV 09/25/16 17:00 09/26/16 05:12 Assessment and Plan Assessment and Plan POD #5 Left hand assist lap nephroureterectomy -Continue pain control -Hgb stable -Afib controlled with Amiodarone drip -Cr continues to rise to 4.36 today. Bumex off, patient continues to make good urine. If creatinine continues to rise, may consider nephrostomy tube, however in a solitary kidney with urine production the likelihood of obstruction is exceedingly low -Ab with umbilical hernia. This is easily reducible and unlikely source of obstruction. Reduced at bedside today -Continue Hep SQ, ambulation -Will check ANN-MARIE creatinine after stabilization on Creatinine -Valentine catheter to remain in place for 2 weeks post-op. Boaz Cordero MD September 26, 2016 18:56
--- NOTE | 2016-09-26 19:45 | PD.CONS ---
HPI Consult Requested By Reason for Consult acute on chroic renal insufficiency. Primary Care Physician Wilver Davis Jr, MD History of Present Illness This patient is an 81-year-old male referred for evaluation and management of acute renal insufficiency. The patient has a somewhat complicated urological history. Patient was recently seen in the office prior to this admission.According to the records I reviewed there is a history of bladder cancer with resection back in 2012. Patient was subsequently diagnosed as having a bilateral hydronephrosis seen on CT urogram as part of an evaluation for microscopic hematuria. 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 Patient subsequently underwent cystoscopy and bilateral retrograde pyelogram and right ureteroscopy with biopsy of her right distal tumor and bilateral ureteral stent placement April 06, 2016. There was mention of bilateral ureteral laser tumor ablation. The right distal tumor was said to be low grade however the left proximal tumor required extensive ablation and pathology returned as a high grade in the left proximal ureter.The left proximal ureteral lesion was described as high-grade and more extensive and sessile in appearance with a biopsy showing invasion to the sub-2 connective tissue with the positive cytology. It was felt that the patient would benefit from a left nephroureterectomy however the patient was said to be hesitant regarding this option given the severity of his renal insufficiency and other comorbidities. In addition the patient has been using Mobic for chronic hip pain on a daily basis for about 2 years now prior to our evaluation.. Status post left nephroureterectomy 09/21/16. prior to surgery an outpatient nucleogram indicated differential kidney function 10% on the left and 90% on the right. Apparently another nephrology service was consulted and a bumetanide drip was started postop and continued over weekend with associated brisk diuresis and worsening azotemia.Patient developed progressive azotemia. He was being followed by another automation test developer at that time. When it was learned that I had established with this patient in the office prior to this admission I was contacted by Dr. Rinaldi to take over care.. Review of Systems ROS Limitations: Clinical Condition Constitutional: COMPLAINS OF: Fatigue, Weight loss, DENIES: Diaphoretic episodes, Fever, Weight gain, Chills, Dizziness, Change in appetite, Night Sweats Cardiovascular: DENIES: Chest pain, Palpitations, Syncope, Dyspnea on Exertion , PND, Lower Extremity Edema, Orthopnea, Claudication Gastrointestinal: DENIES: Abdominal pain, Black stools, Bloody stools, Constipation, Diarrhea, Nausea, Vomiting, Difficulty Swallowing, Anorexia Musculoskeletal: COMPLAINS OF: Joint pain, DENIES: Muscle aches, Stiffness, Joint Swelling, Back pain, Neck pain Past Family Social History Allergies: Coded Allergies: Medrol (Verified Adverse Reaction, Unknown, SHAKING, HYPER, INSOMNIA, ) Uncoded Allergies: steroids (Adverse Reaction, Severe, Irritability/Anxiety, 09/20/16) hyper and on edge Past Medical History 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 Hypertension Psoriasis Past Surgical History As above. Reported Medications Reported Meds & Active Scripts Active Reported Tylenol Extra Strength (Acetaminophen) 500 Mg Tab 1,000 Mg PO DAILY PRN Amlodipine (Amlodipine Besylate) 10 Mg Tab 10 Mg PO DAILY Vitamin D3 (Cholecalciferol) 5,000 Unit Cap 5,000 Units PO DAILY Active Ordered Medications Current Medications Cefazolin Sodium/ Dextrose 50 ml @ 150 mls/hr COAT CHECK ATTENDANT IV ; Start 09/21/16 at 05 :45; Stop 09/21/16 at 06:48; Status DC Lactated Ringer's 1,000 ml @ 30 mls/hr Q24H PRN IV SEE LABEL COMMENTS Last administered on 09/21/16 06:25; Start 09/21/16 at 05:45; Stop 09/21/16 at 14:01; Status DC Sodium Chloride (NS 500 ml Inj) 500 ml @ 30 mls/hr [id number] PRN IV SEE LABEL COMMENTS; Start 09/21/16 at 05:45; Stop 09/21/16 at 14:01; Status DC Metoprolol Tartrate (Lopressor) 25 mg COAT CHECK ATTENDANT PRN PO SEE LABEL COMMENTS; Start 09/21/16 at 05:45; Stop 09/24/16 at 05:44; Status DC Povidone Iodine (Betadine 5% Antisepsis Kit) 1 applic COAT CHECK ATTENDANT PRN EACH NARE SEE LABEL COMMENTS Last administered on 09/21/16 06:25; Start 09/21/16 at 05:45; Stop 09/24/16 at 05:44; Status DC Chlorhexidine Gluconate (Chlorhexidine 2% Cloth) 3 pack COAT CHECK ATTENDANT PRN TOPICAL SEE LABEL COMMENTS; Start 09/21/16 at 05:45; Stop 09/24/16 at 05:44; Status DC Insulin Human Regular (NovoLIN R INJ) See Protocol Table ... COAT CHECK ATTENDANT PRN SQ SEE PROTOCOL TABLE; Start 09/21/16 at 05:45; Stop 09/24/16 at 05:44; Status DC Gelatin (Gelfoam 100 Top) 1 foam STK-MED ONCE .ROUTE ; Start 09/21/16 at 06:15; Stop 09/21/16 at 06:16; Status DC Bupivacaine HCl/ Epinephrine Bitart 50 ml 50 ml STK-MED ONCE .ROUTE Last administered on 09/21/16 08:16; Start 09/21/16 at 06:30; Stop 09/21/16 at 06:31; Status DC Cefazolin Sodium/ Dextrose (Ancef 2 Gm Premix) 50 ml @ 150 mls/hr COAT CHECK ATTENDANT IV Last administered on 09/21/16 07:50; Start 09/21/16 at 07:00; Stop 09/21/16 at 14: 02; Status DC Acetaminophen (Ofirmev Inj) 1,000 mg STK-MED ONCE IV ; Start 09/21/16 at 07:23; Stop 09/21/16 at 07:24; Status DC Sugammadex Sodium (Bridion Inj) 200 mg STK-MED ONCE IV PUSH ; Start 09/21/16 at 07:23; Stop 09/21/16 at 07:24; Status DC Famotidine 20 mg 20 mg STK-MED ONCE .ROUTE ; Start 09/21/16 at 07:23; Stop at 07:24; Status DC Sodium Chloride (NS 1000 ml Inj) 1,000 ml @ 125 mls/hr Q8H IV Last administered on 09/23/16 05:01; Start 09/21/16 at 12:36; Stop 09/24/16 at 01:01; Status DC Sodium Chloride (NS Flush) 2 ml UNSCH PRN IV FLUSH FLUSH AFTER USING IV ACCESS ; Start 09/21/16 at 12:45 Sodium Chloride (NS Flush) 2 ml BID IV FLUSH Last administered on 09/26/16 11: 54; Start 09/21/16 at 21:00 Oxycodone/ Acetaminophen (Percocet 5-325 Mg) 1 tab Q4H PRN PO PAIN SCALE 1 TO 5 Last administered on 09/25/16 08:07; Start 09/21/16 at 12:45 Oxycodone/ Acetaminophen (Percocet 5-325 Mg) 2 tab Q4H PRN PO PAIN SCALE 6 TO 10; Start 09/21/16 at 12:45 Hydromorphone HCl (Dilaudid Pf Inj) 1 mg Q2H PRN IV PAIN SCALE 1 TO 5; Start at 12:45; Stop 09/23/16 at 07:51; Status DC Hydromorphone HCl (Dilaudid Pf Inj) 2 mg Q2H PRN IV BREAKTHROUGH PAIN Last administered on 09/25/16 09:48; Start 09/21/16 at 12:45 Oxybutynin Chloride (Ditropan) 5 mg TID PO Last administered on 09/26/16 13:34 ; Start 09/21/16 at 13:00 Ondansetron HCl (Zofran Inj) 4 mg Q6H PRN IV NAUSEA Last administered on 13:45; Start 09/21/16 at 12:45 Miscellaneous Information STAT ONCE XX ; Start 09/21/16 at 12:45; Stop 09/21/16 at 14:07; Status DC Cefazolin Sodium/ Sodium Chloride (Ancef Inj/NS Inj) 100 ml @ 200 mls/hr Q12H IV Last administered on 09/22/16 18:53; Start 09/21/16 at 20:00; Stop 09/22/16 at 20:29; Status DC Heparin Sodium (Porcine) (Heparin Inj) 5,000 units Q12H SQ Last administered on 09/26/16 11:53; Start 09/22/16 at 12:00 Naloxone HCl (Narcan Inj) 0.4 mg UNSCH PRN IV RESPIRATORY RATE LESS THAN 10; Start 09/21/16 at 12:45; Stop 09/23/16 at 07:51; Status DC Hydromorphone HCl (Dilaudid VAT HOUSE SUPERVISOR Inj) 6 mg UNSCH IV Last administered on 04:23; Start 09/21/16 at 12:45; Stop 09/23/16 at 07:51; Status DC VAT HOUSE SUPERVISOR Dosage Infused (Pha) 1 Q8HR OTHER Last administered on 09/23/16 06:58; Start 09/21/16 at 14:00; Stop 09/23/16 at 07:51; Status DC Morphine Sulfate (*morphine INJ PERIprocedure ONLY) 8 mg STK-MED ONCE .ROUTE Last administered on 09/21/16 12:54; Start 09/21/16 at 12:54; Stop 09/21/16 at 12: 55; Status DC Morphine Sulfate (*morphine INJ PERIprocedure ONLY) 8 mg STK-MED ONCE .ROUTE Last administered on 09/21/16 13:08; Start 09/21/16 at 13:08; Stop 09/21/16 at 13: 18; Status DC Midazolam HCl (Versed Inj) 2 mg STK-MED ONCE .ROUTE ; Start 09/21/16 at 13:37; Stop 09/21/16 at 13:38; Status DC Fentanyl Citrate (fentaNYL INJ) 500 mcg STK-MED ONCE .ROUTE ; Start 09/21/16 at 13:37; Stop 09/21/16 at 13:38; Status DC Labetalol HCl (Trandate Inj) 20 mg Q3H PRN IV PUSH SBP > 160; Start 09/21/16 at 17:15 Hydralazine HCl 10 mg 10 mg Q2H PRN IV PUSH SBP > 170 Last administered on 18:23; Start 09/21/16 at 17:15 Sodium Chloride 1,000 ml @ 1,000 mls/hr Q1H ONCE IV ; Start 09/21/16 at 18:15; Stop 09/21/16 at 19:14; Status DC Sodium Chloride 500 ml @ 500 mls/hr NOW ONCE IV Last administered on 21:58; Start 09/21/16 at 22:00; Stop 09/21/16 at 22:59; Status DC Sodium Chloride (NS 500 ml Inj) 500 ml @ 500 mls/hr Q1H ONCE IV Last administered on 09/22/16 06:48; Start 09/22/16 at 06:45; Stop 09/22/16 at 07:44; Status DC Bumetanide 2 mg 2 mg NOW ONCE IV PUSH Last administered on 09/22/16 14:20; Start 09/22/16 at 14:00; Stop 09/22/16 at 14:01; Status DC Bumetanide (Bumex Inj) 100 ml @ 1 mls/hr CONTINUOUS IV Last administered on 09/23 16:57; Start 09/22/16 at 15:45; Stop 09/25/16 at 16:39; Status DC Dextrose (D50w (Vial) Inj) 25 ml ONCE ONCE IV PUSH Last administered on 14:20; Start 09/22/16 at 14:00; Stop 09/22/16 at 14:01; Status DC Insulin Human Regular (NovoLIN R INJ) 10 units ONCE ONCE IV PUSH Last administered on 09/22/16 14:26; Start 09/22/16 at 14:00; Stop 09/22/16 at 14:01; Status DC Docusate Sodium (Colace) 100 mg BID PO Last administered on 09/25/16 23:30; Start 09/23/16 at 09:00 Metoprolol Tartrate (Lopressor Inj) 5 mg STK-MED ONCE .ROUTE Last administered on 09/23/16 08:48; Start 09/23/16 at 08:21; Stop 09/23/16 at 08:22; Status DC Diltiazem HCl 20 mg 20 mg ONCE ONCE IVP Last administered on 09/23/16 08:54; Start 09/23/16 at 08:45; Stop 09/23/16 at 08:46; Status DC Diltiazem HCl 125 mg/Sodium Chloride 125 ml @ 0 mls/hr TITRATE IV ; Start at 08:45 Amiodarone HCl 150 mg/Dextrose 100 ml @ 100 mls/hr ONCE ONCE IV Last administered on 09/23/16 08:45; Start 09/23/16 at 08:45; Stop 09/23/16 at 09:44; Status DC Amiodarone HCl 450 mg/Dextrose 250 ml @ 0 mls/hr CONTINUOUS IV Last administered on 09/26/16 11:54; Start 09/23/16 at 08:45; Stop 09/26/16 at 15:33; Status DC Potassium Chloride 100 ml @ 50 mls/hr BOLUS ONCE IV Last administered on 13:45; Start 09/24/16 at 12:45; Stop 09/24/16 at 14:44; Status DC Magnesium Sulfate/ Dextrose (Magnesium Sulfate 1 Gm Premix) 100 ml @ 100 mls/ hr Q1H IV Last administered on 09/24/16 15:12; Start 09/24/16 at 14:00; Stop 09/24/16 at 15:59; Status DC Pantoprazole Sodium (Protonix Inj) 40 mg Q24H IV PUSH Last administered on 13:38; Start 09/24/16 at 14:00 Hydromorphone HCl (Dilaudid Pf Inj) 0.2 mg Q4H PRN IV PUSH PAIN SCALE 1 TO 5; Start 09/24/16 at 13:00 Amlodipine Besylate (Norvasc) 10 mg DAILY PO Last administered on 09/26/16 13: 34; Start 09/24/16 at 13:00 Metoprolol Tartrate (Lopressor) 25 mg Q12HR PO Last administered on 09/26/16 13 :34; Start 09/24/16 at 13:00 Potassium Chloride (KCl) 20 meq ONCE ONCE PO Last administered on 09/25/16 11: 17; Start 09/25/16 at 11:15; Stop 09/25/16 at 11:16; Status DC Ondansetron HCl 4 mg 4 mg NOW ONCE IV Last administered on 09/25/16 12:46; Start 09/25/16 at 12:45; Stop 09/25/16 at 12:46; Status DC Potassium Chloride 100 ml @ 50 mls/hr BOLUS ONCE IV Last administered on 18:31; Start 09/25/16 at 17:00; Stop 09/25/16 at 18:59; Status DC Potassium Chloride/Sodium Chloride (NS + KCl 20 Meq Inj) 1,000 ml @ 84 mls/hr [id number] IV Last administered on 09/26/16 05:12; Start 09/25/16 at 17:00 Magnesium Citrate (Citroma Liq) 300 ml Q6H PO Last administered on 09/26/16 04: 55; Start 09/25/16 at 20:00; Stop 09/26/16 at 02:01; Status DC Bisacodyl (Dulcolax Ec) 10 mg Q3H PO Last administered on 09/26/16 03:01; Start 09/26/16 at 00:00; Stop 09/26/16 at 03:01; Status DC Lorazepam (Ativan Inj) 0.5 mg UNSCH X1 IV Last administered on 09/25/16 21:07 ; Start 09/25/16 at 20:30; Stop 09/25/16 at 22:00; Status DC Lorazepam (Ativan Inj) 1 mg ONCE ONCE IV Last administered on 09/26/16 17:15; Start 09/26/16 at 17:15; Stop 09/26/16 at 17:16; Status DC Midazolam HCl (Versed Inj) 5 mg STK-MED ONCE .ROUTE Last administered on 17:30; Start 09/26/16 at 17:19; Stop 09/26/16 at 17:20; Status DC Family History Family history of heart disease and diabetes mellitus. Social History History of previous tobacco use 10 years ago. Physical Exam Vital Signs Vital Signs Date Time Temp Pulse Resp B/P Pulse Ox O2 Delivery O2 Flow Rate FiO2 09/26/16 17:50 92 Nasal Cannula 6.00 09/26/16 17:00 90 Nasal Cannula 3.00 09/26/16 16:00 64 09/26/16 16:00 98.8 66 15 125/69 92 09/26/16 12:00 82 09/26/16 12:00 96.8 82 21 136/70 92 09/26/16 08:42 89 21 09/26/16 08:00 94 Room Air 09/26/16 08:00 97.7 78 20 142/71 94 09/26/16 08:00 78 09/26/16 06:00 67 09/26/16 04:00 65 09/26/16 04:00 97.9 86 16 156/72 95 09/26/16 02:00 68 09/26/16 00:00 68 09/26/16 00:00 98.7 101 14 143/77 92 Arterial Line 09/25/16 22:00 82 09/25/16 20:00 92 09/25/16 20:00 98.6 82 20 137/79 Arterial Line Physical Exam GENERAL: Probably male sitting up in bed. Appears alert not in respiratory distress. SKIN: Warm and dry. skin turgor diminished. HEAD: Normocephalic. EYES: No scleral icterus. No injection or drainage. NECK: Supple, trachea midline. No JVD or lymphadenopathy. CARDIOVASCULAR: Regular rate and rhythm without murmurs, gallops, or rubs. RESPIRATORY: Breath sounds equal bilaterally. No accessory muscle use. GASTROINTESTINAL: Abdomen soft, non-tender, nondistended. MUSCULOSKELETAL: No cyanosis, or edema. BACK: Nontender without obvious deformity. No CVA tenderness. Laboratory Laboratory Tests Test 09/26/16 03:29 White Blood Count 5.2 Red Blood Count 3.37 Hemoglobin 11.5 Hematocrit 32.4 Mean Corpuscular Volume 96.4 Mean Corpuscular Hemoglobin 34.1 Mean Corpuscular Hemoglobin 35.4 Concent Red Cell Distribution Width 13.2 Platelet Count 202 Mean Platelet Volume 7.6 Neutrophils (%) (Auto) 75.8 Lymphocytes (%) (Auto) 5.5 Monocytes (%) (Auto) 18.5 Eosinophils (%) (Auto) 0.1 Basophils (%) (Auto) 0.1 Neutrophils # (Auto) 3.9 Lymphocytes # (Auto) 0.3 Monocytes # (Auto) 1.0 Eosinophils # (Auto) 0.0 Basophils # (Auto) 0.0 CBC Comment DIFF FINAL Differential Comment Sodium Level 135 Potassium Level 3.3 Chloride Level 95 Carbon Dioxide Level 26.8 Anion Gap 13 Blood Urea Nitrogen 91 Creatinine 4.36 Estimat Glomerular Filtration 13 Rate Random Glucose 141 Calcium Level 9.2 Magnesium Level 2.8 Total Bilirubin 0.7 Aspartate Amino Transf 13 (AST/SGOT) Alanine Aminotransferase 12 (ALT/SGPT) Alkaline Phosphatase 77 Total Protein 7.5 Albumin 3.1 Result Diagram: 09/26/16 0329 09/26/16 0329 Imaging Last 48 hours Impressions Chest X-Ray 09/26/16 0600 Signed Impressions: Service Date/Time: Monday, September 26, 2016 05:02 - CONCLUSION: Hypoinflation with bibasilar atelectasis. Shalom Chery Jr., MD Abdomen X-Ray 09/25/16 0000 Signed Impressions: Service Date/Time: Sunday, September 25, 2016 18:35 - CONCLUSION: Moderate diffuse gaseous distention of small bowel Curt Bee MD Assessment and Plan Problem List: (1) Acute renal failure Plan: Agree with discontinuance of bumetanide drip. Continue to monitor volume status and renal indices. Urology uncertain as to significance of hydronephrosis involving solitary kidney. Findings may be chronic in his urine output is quite brisk throwing into question the significance of the hydronephrosis on CAT scan. Urology considerig intervention if ceatinine level contiues to deteriorate. (2) Hyperkalemia Plan: Resolved (3) Hypertension Plan: Monitor blood pressure (4) History of nephroureterectomy Plan: this admission left side. For malignancy. Jason Landry MD September 26, 2016 19:45
[2016-09-26] MEDS ORDERED: DEXMEDETOMIDINE INJ 200 MCG in SODIUM CHLORIDE 0.9% INJ 50 ML IV SCH (21:15)
[2016-09-26] MEDS ORDERED: HALOPERIDOL LACTATE 5 MG/ML AMP IV PUSH PRN (21:15)
[2016-09-26] MEDS: DOCUSATE SODIUM 100 MG CAP PO SCH (21:17)
[2016-09-27] VITALS (11 sets, daily range): BP systolic 123–167; BP diastolic 62–89; PULSE 68–104; RESP 14–20; TEMP 97.9–99; O2SAT 93–100
[2016-09-27] MEDS: HEPARIN SODIUM - SQ 10,000 UNITS/ML VIAL SQ SCH ×2 (00:20→12:00)
--- NOTE | 2016-09-27 04:13 | RADRPT ---
EXAM DATE/TIME: 09/27/2016 03:05 [facility] COMPARISON: CHEST SINGLE AP, September 26, 2016, 5:02. INDICATIONS : Short of breath. MEDICAL HISTORY : None. SURGICAL HISTORY : None. ENCOUNTER: Initial ACUITY: 1 day PAIN SCORE: 0/10 LOCATION: Bilateral chest FINDINGS: A single portable frontal view the chest shows no interval change. Low lung volumes remain. Left basi lar atelectasis noted. Right lung is clear. No effusions. Heart normal size. Tip of a nasogastric tub e coiled in the fundus of the stomach. CONCLUSION: Hypoinflation with left basilar atelectasis. Shalom Chery Jr., MD on September 27, 2016 at 4:11 Board Certified Radiologist. This report was verified electronically.
[2016-09-27 05:38] LABS: AUTOMATED NEUTROPHIL # 1.8 TH/MM3 (1.8-7.7); BASOPHIL % 0.1 % (0.0-2.0); EOSINOPHIL % 0.5 % (0.0-4.0); HEMATOCRIT 32.1 % (39.0-51.0); HEMO FLAGS DIFF FINAL; LYMPH % 8.8 % (9.0-44.0); LYMPHOCYTE # 0.2 TH/MM3 (1.0-4.8); MEAN CELL VOLUME 97.3 FL (80.0-100.0); MEAN CORPUSCULAR HEMOGLOBIN 33.6 PG (27.0-34.0); MEAN CORPUSCULAR HGB CONC 34.6 % (32.0-36.0); MONO % 22.2 % (0.0-8.0); NEUT % 68.4 % (16.0-70.0); PLATELET COUNT 220 TH/MM3 (150-450); RED CELL DISTRIBUTION WIDTH 13.5 % (11.6-17.2); WHITE BLOOD COUNT 2.6 TH/MM3 (4.0-11.0)
[2016-09-27 06:04] LABS: ALKALINE PHOSPHATASE 74 U/L (45-117); ALT (GPT) 14 U/L (12-78); ANION GAP 12 MEQ/L (5-15); AST (GOT) 17 U/L (15-37); BICARBONATE 30.5 MEQ/L (21.0-32.0); BLOOD UREA NITROGEN 105 MG/DL (7-18); CHLORIDE 101 MEQ/L (98-107); GLOMERULAR FILTRATION RATE 13 ML/MIN (>89); MAGNESIUM 3.5 MG/DL (1.5-2.5); POTASSIUM 3.3 MEQ/L (3.5-5.1); SODIUM (NA) 143 MEQ/L (136-145); TOTAL BILIRUBIN ADULT 0.9 MG/DL (0.2-1.0)
[2016-09-27] MEDS: NS + KCL 20 MEQ INJ 1,000 ML IV SCH (06:21)
[2016-09-27] MEDS: DOCUSATE SODIUM 100 MG CAP PO SCH ×2 (08:48→21:09)
[2016-09-27] MEDS: METOPROLOL TARTRATE 25 MG TAB PO SCH ×2 (08:48→21:09)
[2016-09-27] MEDS: OXYBUTYNIN CHLORIDE 5 MG TAB PO SCH ×3 (08:48→18:24)
[2016-09-27] MEDS: SODIUM CHLORIDE 0.9% FLUSH 10 ML FLUSH IV FLUSH SCH ×2 (08:48→21:09)
--- NOTE | 2016-09-27 09:15 | HHI.CCPN ---
Subjective Remarks/Hospital Course 81 y/o man underwent uncomplicated left nephrectomy including ureter down to bladder today. Comes back to ICU looking great, breathing comfortably, warm and well perfused. 09/22: Breathing comfortably. Warm, well perfused. Lungs clear. 09/23: Good response to loop diuretic, > 5 liter, cut rate by 50%. New onset a- fib with RVR. Start cardizem for rate control, add amiodarone for conversion. Continue BID sq heparin, will add full anticoagulation if a-fib persists. Check mag, phos, k. 09/24: Back in NSR but increased ventricular ectopy, episodic burst of a-fib. Breathing much improved after bumex diuresis. Creatine rising; will reduce bumex gtt by 50% again today. Urine remains copious. Add low dose beta gage, continue amiodarone drip.Follow K, Mag, Phos closely. 09/25: Creat worsening, Bumex Dcd. Continues to have nausea and vomiting. CT of the abdomen pelvis from 09/23/16 shows left paraumbilical hernia containing a loop of small bowel. At least partial small bowel obstruction. CT also showed severe right hydronephrosis-urology and nephrology aware 09/26: Cr is 4.5 today, SB follow through done pending now. D/W Dr. Cordero- patient is nonoliguric, and at this time does not meet criteria for starting hemodialysis. In case he needs hemodialysis Dr. Cordero will place a nephrostomy tube for decompression 09/27: Elderly male resting in bed, not in any acute distress. NG tube remains to suction. Continues to make urine though BUN/creatinine remains elevated. Being followed by urology/nephrology who will decide regarding nephrostomy placement/hemodialysis if needed. Patient went back into A. fib following discontinuation of amiodarone drip on 09/26. We'll resume amiodarone drip with bolus. Objective Vital Signs Date Time Temp Pulse Resp B/P Pulse Ox O2 Delivery O2 Flow Rate FiO2 09/27/16 08:00 96 Nasal Cannula 2.00 09/27/16 08:00 98.6 104 14 146/80 09/26/16 08:42 21 Intake and Output 09/26/16 09/26/16 09/26/16 07:59 15:59 23:59 Intake Total 356 ml 784 ml 914 ml Output Total 940 ml 560 ml 2570 ml Balance -584 ml 224 ml -1656 ml Result Diagram: 09/27/16 0455 09/27/16 0455 Other Results Laboratory Tests Test 09/27/16 04:55 White Blood Count 2.6 TH/MM3 Red Blood Count 3.30 MIL/MM3 Hemoglobin 11.1 GM/DL Hematocrit 32.1 % Mean Corpuscular Volume 97.3 FL Mean Corpuscular Hemoglobin 33.6 PG Mean Corpuscular Hemoglobin 34.6 % Concent Red Cell Distribution Width 13.5 % Platelet Count 220 TH/MM3 Mean Platelet Volume 7.9 FL Neutrophils (%) (Auto) 68.4 % Lymphocytes (%) (Auto) 8.8 % Monocytes (%) (Auto) 22.2 % Eosinophils (%) (Auto) 0.5 % Basophils (%) (Auto) 0.1 % Neutrophils # (Auto) 1.8 TH/MM3 Lymphocytes # (Auto) 0.2 TH/MM3 Monocytes # (Auto) 0.6 TH/MM3 Eosinophils # (Auto) 0.0 TH/MM3 Basophils # (Auto) 0.0 TH/MM3 CBC Comment DIFF FINAL Differential Comment Sodium Level 143 MEQ/L Potassium Level 3.3 MEQ/L Chloride Level 101 MEQ/L Carbon Dioxide Level 30.5 MEQ/L Anion Gap 12 MEQ/L Blood Urea Nitrogen 105 MG/DL Creatinine 4.35 MG/DL Estimat Glomerular Filtration 13 ML/MIN Rate Random Glucose 124 MG/DL Calcium Level 8.3 MG/DL Magnesium Level 3.5 MG/DL Total Bilirubin 0.9 MG/DL Aspartate Amino Transf 17 U/L (AST/SGOT) Alanine Aminotransferase 14 U/L (ALT/SGPT) Alkaline Phosphatase 74 U/L Total Protein 6.9 GM/DL Albumin 2.9 GM/DL 25-Hydroxy Vitamin D Total 25.4 ng/ML Parathyroid Hormone (Intact) 141.0 PG/ML Imaging Last Impressions Chest X-Ray 09/27/16 0600 Signed Impressions: Service Date/Time: Tuesday, September 27, 2016 03:05 - CONCLUSION: Hypoinflation with left basilar atelectasis. Shalom Chery Jr., MD Abdomen X-Ray 09/25/16 0000 Signed Impressions: Service Date/Time: Sunday, September 25, 2016 18:35 - CONCLUSION: Moderate diffuse gaseous distention of small bowel Curt Bee MD Abdomen/Pelvis CT 09/23/16 0000 Signed Impressions: Service Date/Time: Friday, September 23, 2016 17:42 - CONCLUSION: 1. There is a 2.3 cm left-sided paraumbilical hernia in the anterior abdominal wall containing a loop of bowel resulting in at least a partial small bowel obstruction. There is also gastric distention. 2. Postoperative recent left nephrectomy with residual fluid at the nephrectomy site and some residual free air within the abdomen as well as subcutaneous air in the left chest and abdominal wall. Drainage catheter left lower quadrant. 3. Severe right-sided hydronephrosis and dilatation of right ureter to just above the bladder. Valentine catheter present in the bladder. [place] Umaña MD Renal Ultrasound 09/22/16 0000 Signed Impressions: Service Date/Time: Thursday, September 22, 2016 17:07 - CONCLUSION: 1. Moderate right hydronephrosis, etiology uncertain. Right ureteral calculus possible. A 7 mm stone is seen at the lower pole that appears to be nonobstructing. 2. Reported left nephrectomy. Large soft tissue structure in the nephrectomy bed. Differential includes residual kidney, shifted spleen and recurrent mass. There is also a large fluid collection medial to the left renal fossa. A CT of the abdomen and pelvis is recommended, preferably with an without intravenous contrast. Curt Tafoya MD Objective Remarks General: Mild distress due to nausea HEENT: Pallor present, , oral Mucosa [place] & Moist Neck: Neck Supple Pulmonary: Breath Sounds Equal, No Distress, Rhonchi, Decreased Bases Cardiology: Regular, Normal Sinus Rhythm Gastrointestinal: Soft, Distended. Mild tenderness L upper and lower quadrant Extremities Exam: Trace Edema Neuro Exam: Alert, Awake, Oriented No FND Urinary Catheter: Yes Assessment to: Continue A/P Assessment and Plan ASSESSMENT Status post left nephroureterectomy Acute renal failure Right hydronephrosis Small bowel obstruction/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 fib Plan: -Patient is non oliguric and the urine out put adequate creatinine continues to remain elevated - 4.35 today -Off IV Bumex -Severe hydronephrosis, urology is aware D/W Dr. Cordero- patient is nonoliguric, and at this time does not meet criteria for starting hemodialysis. In case he needs hemodialysis Dr. Cordero will place a nephrostomy tube for decompression -IV fluids given partial intestinal obstruction, NS 84 ml per hour -General surgery following for SBO - Dr. Hartamnn -Keep NPO, NG decompression -IV Protonix. Heparin 5000 sq q12 -Monitor BP Hypertension - Resume amiodarone drip as patient has reverted back to A. fib. D/W BILLET RECORDER. Santosh Santana MD September 27, 2016 09:15
[2016-09-27] MEDS: AMIODARONE INJ 150 MG in DEXTROSE 5% IN WATER 100ML INJ 97 ML IV ONE ×4 (10:00→10:31)
--- NOTE | 2016-09-27 10:11 | RADRPT ---
EXAM DATE/TIME: 09/26/2016 09:10 [facility] COMPARISON: No previous studies available for comparison. INDICATIONS : Vomiting. Evaluate for obstruction FLUORO TIME: 0 minutes IMAGE COUNT: 22 CONTRAST: Entero Vu 24% Barium Sulfate (24% w/v, 20% w/w) IMAGING TIME(S): 15 min, 30 min, 45 min, 1 hr, 1.5 hrs2 hrs,3 hrs,6hr MEDICAL HISTORY : Carcinoma, bladder. SURGICAL HISTORY : Nephrectomy, left. ENCOUNTER: Initial ACUITY: 4 - 6 days PAIN SCORE: Non-responsive. LOCATION: Left lower quadrant Abdomen FINDINGS: Preliminary film is unremarkable. The stomach is grossly unremarkable. Examination of the small bowel demonstrates diffuse small bowel distention. Oral contrast remains wit hin the small bowel at 17.5 hours. Surgical drain left lower quadrant. No intraluminal filling defect s are identified. Left hip prosthesis. Postsurgical changes. CONCLUSION: Diffuse small bowel distention and probable ileus. Wilfredo Stephenson MD on September 27, 2016 at 10:07 Board Certified Radiologist. This report was verified electronically.
[2016-09-27] MEDS: AMIODARONE INJ 450 MG in DEXTROSE 5% IN WATE(EXCEL) INJ 241 ML IV SCH ×2 (10:32)
[2016-09-27] MEDS: PANTOPRAZOLE SODIUM 40 MG VIAL IV PUSH SCH (13:51)
[2016-09-27] MEDS: ONDANSETRON HCL 4 MG/2 ML VIAL IV PRN (15:43)
--- NOTE | 2016-09-27 18:10 | HHI.NPPN ---
Subjective History of Present Illness This patient is an 81-year-old male referred for evaluation and management of acute renal insufficiency. The patient has a somewhat complicated urological history. Patient was recently seen in the office prior to this admission.According to the records I reviewed there is a history of bladder cancer with resection back in 2012. Patient was subsequently diagnosed as having a bilateral hydronephrosis seen on CT urogram as part of an evaluation for microscopic hematuria. 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 Patient subsequently underwent cystoscopy and bilateral retrograde pyelogram and right ureteroscopy with biopsy of her right distal tumor and bilateral ureteral stent placement April 06, 2016. There was mention of bilateral ureteral laser tumor ablation. The right distal tumor was said to be low grade however the left proximal tumor required extensive ablation and pathology returned as a high grade in the left proximal ureter.The left proximal ureteral lesion was described as high-grade and more extensive and sessile in appearance with a biopsy showing invasion to the sub-2 connective tissue with the positive cytology. It was felt that the patient would benefit from a left nephroureterectomy however the patient was said to be hesitant regarding this option given the severity of his renal insufficiency and other comorbidities. In addition the patient has been using Mobic for chronic hip pain on a daily basis for about 2 years now prior to our evaluation.. Status post left nephroureterectomy 09/21/16. prior to surgery an outpatient nucleogram indicated differential kidney function 10% on the left and 90% on the right. Apparently another nephrology service was consulted and a bumetanide drip was started postop and continued over weekend with associated brisk diuresis and worsening azotemia.Patient developed progressive azotemia. He was being followed by another freedom of information officer at that time. When it was learned that I had established with this patient in the office prior to this admission I was contacted by Dr. Rinaldi to take over care. Interval History Says he is feeling much better today Dx with ileus and has NG tube placed. High output. UOP remains good. (Amanda Jade) Review of Systems General General Remarks Denies any symptoms at the present except discomfort from NG tube. (Amanda Jade) Objective Data Data 09/26/16 09/27/16 18:59 06:59 Intake Total 784 ml 1532 ml Output Total 2110 ml 1645 ml Balance -1326 ml -113 ml IV Total 784 ml 1532 ml Output Urine Total 500 ml 875 ml Gastric Drainage Total 1500 ml 700 ml Drainage Total 110 ml 70 ml # Bowel Movements 0 Vital Signs Date Time Temp Pulse Resp B/P Pulse Ox O2 Delivery O2 Flow Rate FiO2 09/27/16 12:00 98.5 68 17 123/64 95 09/27/16 12:00 68 09/27/16 08:00 96 Nasal Cannula 2.00 09/27/16 08:00 98.6 104 14 146/80 96 09/27/16 08:00 104 09/27/16 07:30 100 Nasal Cannula 2.00 09/27/16 06:00 94 09/27/16 04:00 99.0 78 15 149/89 95 09/27/16 04:00 74 09/27/16 02:00 71 09/27/16 00:00 73 09/27/16 00:00 97.9 72 17 141/71 94 09/26/16 22:00 67 09/26/16 20:00 65 09/26/16 20:00 97.6 78 24 155/71 95 09/26/16 19:00 94 Nasal Cannula 6.00 (Amanda Jade) -: 09/27/16 0455 09/27/16 0455 Imaging Last Impressions Chest X-Ray 09/27/16 0600 Signed Impressions: Service Date/Time: Tuesday, September 27, 2016 03:05 - CONCLUSION: Hypoinflation with left basilar atelectasis. Shalom Chery Jr., MD Small Bowel X-Ray 09/26/16 0000 Signed Impressions: Service Date/Time: Monday, September 26, 2016 09:10 - CONCLUSION: Diffuse small bowel distention and probable ileus. Wilfredo Stephenson MD Abdomen X-Ray 09/25/16 0000 Signed Impressions: Service Date/Time: Sunday, September 25, 2016 18:35 - CONCLUSION: Moderate diffuse gaseous distention of small bowel Curt Bee MD Abdomen/Pelvis CT 09/23/16 0000 Signed Impressions: Service Date/Time: Friday, September 23, 2016 17:42 - CONCLUSION: 1. There is a 2.3 cm left-sided paraumbilical hernia in the anterior abdominal wall containing a loop of bowel resulting in at least a partial small bowel obstruction. There is also gastric distention. 2. Postoperative recent left nephrectomy with residual fluid at the nephrectomy site and some residual free air within the abdomen as well as subcutaneous air in the left chest and abdominal wall. Drainage catheter left lower quadrant. 3. Severe right-sided hydronephrosis and dilatation of right ureter to just above the bladder. Valentine catheter present in the bladder. [place] Umaña MD Renal Ultrasound 09/22/16 0000 Signed Impressions: Service Date/Time: Thursday, September 22, 2016 17:07 - CONCLUSION: 1. Moderate right hydronephrosis, etiology uncertain. Right ureteral calculus possible. A 7 mm stone is seen at the lower pole that appears to be nonobstructing. 2. Reported left nephrectomy. Large soft tissue structure in the nephrectomy bed. Differential includes residual kidney, shifted spleen and recurrent mass. There is also a large fluid collection medial to the left renal fossa. A CT of the abdomen and pelvis is recommended, preferably with an without intravenous contrast. Curt Tafoya MD Medication Review Current Medications Medications (Trade) Dose Ordered Sig/Néstor Route Start Time Stop Time Status Last Admin (NS Flush) 2 ml UNSCH PRN IV FLUSH 09/21/16 12:45 (NS Flush) 2 ml BID IV FLUSH 09/21/16 21:00 09/27/16 08:48 (Percocet 5-325 Mg) 1 tab Q4H PRN PO 09/21/16 12:45 09/25/16 08:07 (Percocet 5-325 Mg) 2 tab Q4H PRN PO 09/21/16 12:45 (Dilaudid Pf Inj) 2 mg Q2H PRN IV 09/21/16 12:45 09/25/16 09:48 (Ditropan) 5 mg TID PO 09/21/16 13:00 09/27/16 13:51 (Zofran Inj) 4 mg Q6H PRN IV 09/21/16 12:45 09/27/16 15:43 (Heparin Inj) 5,000 units Q12H SQ 09/22/16 12:00 09/27/16 12:00 (Trandate Inj) 20 mg Q3H PRN IV PUSH 09/21/16 17:15 (Apresoline Inj) 10 mg Q2H PRN IV PUSH 09/21/16 17:15 09/24/16 18:23 Docusate Sodium 100 mg 100 mg BID PO 09/23/16 09:00 09/27/16 08:48 (Cardizem Inj/NS Inj) 125 ml @ 0 mls/hr TITRATE IV 09/23/16 08:45 (Protonix Inj) 40 mg Q24H IV PUSH 09/24/16 14:00 09/27/16 13:51 (Dilaudid Pf Inj) 0.2 mg Q4H PRN IV PUSH 09/24/16 13:00 (Norvasc) 10 mg DAILY PO 09/24/16 13:00 09/27/16 08:48 Metoprolol Tartrate 25 mg 25 mg Q12HR PO 09/24/16 13:00 09/27/16 08:48 (NS + KCl 20 Meq Inj) 1,000 ml @ 84 mls/hr [id number] IV 09/25/16 17:00 09/27/16 06:21 Haloperidol Lactate 2 mg 2 mg Q6H PRN IV PUSH 09/26/16 21:15 09/27/16 00:03 Dexmedetomidine HCl 200 mcg/ Sodium Chloride 52 ml @ 0 mls/hr TITRATE IV 09/26/16 21:15 (Cordarone Inj/ D5W ([place]) Inj) 250 ml @ 0 mls/hr CONTINUOUS IV 09/27/16 09:15 (Amanda Jade) Physical Exam General Appearance: No Acute Distress, Comfortable (Amanda Jade) Eyes Eye Exam: Pupils Equal (Amanda Jade) Ears & Nose Ears & Nose Remarks NG tube present R nare (Amanda Jade) Throat Throat Exam: Oral Mucosa [place] & Moist (Amanda Jade) Neck Neck Exam: Neck Supple (Amanda Jade) Pulmonary Resp Exam: Breath Sounds Equal, No Distress, Decreased Bases (Amanda Jade) Cardiology CV Exam: Regular (Amanda Jade) Gastrointestinal/Abdomen GI Exam: Soft, Distended (Amanda Jade) Extremeties Extremities Exam: No Edema (Amanda Jade) Neurologic Neuro Exam: Alert, Awake, Oriented (Amanda Jade) Psychiatric Psych Exam: Appropriate Responses (Amanda Jade) Assessment/Plan Assessment Summary: YOLA/Acute Renal Failure, CKD Stage III Problem List: (1) Acute renal failure Plan: Renal indices have not improved overnight, but they have also not gotten worse. He has had high output from the NG tube and continues to make adequate urine. Will increase IVF to 125mL/hr tonight and monitor response in the AM. No need for dialysis at the present. Urology uncertain as to significance of hydronephrosis involving solitary kidney. Findings may be chronic in his urine output is quite brisk throwing into question the significance of the hydronephrosis on CAT scan. Urology considering intervention if creatinine level continues to deteriorate. (2) Hypokalemia Plan: Will give 20meq bolus tonight. Likely related to ARF and GI losses (3) Hypermagnesemia Plan: Likely related to cathartics. Would recommend avoidance of magnesium based laxatives in renal failure as these patient's are prone to hypermagnesemia. (4) Hypertension Plan: Monitor blood pressure (5) History of nephroureterectomy Plan: this admission on left side for malignancy (Amanda Jade) Plan The exam, history, and the medical decision-making described in the above note were completed with the assistance of the PARobson. I reviewed and agree with the findings presented. I attest that I had a [id number] encounter with the patient on the same day, and personally performed and documented my assessment and findings in the medical record. (Jason Landry MD) Amanda Jade September 27, 2016 18:10 Jason Landry MD September 27, 2016 18:40
[2016-09-27] MEDS ORDERED: POTASSIUM CHLOR 20 MEQ PREMIX 100 ML IV ONE (18:15)
[2016-09-27] MEDS: 1/2 NS + KCL 20 MEQ INJ 1,000 ML IV SCH (18:43)
--- NOTE | 2016-09-27 19:16 | HHI.PR ---
Subjective Patient symptoms today POD#6 Left Lap Hand Assist Nephroureterectomy Pain well controlled. Afib controlled with Amiodarone. NGT in place, tolerating well. Feeling better today. No BM, No fevers. Cr stabilized Objective Vital Signs Vital Signs Date Time Temp Pulse Resp B/P Pulse Ox O2 Delivery O2 Flow Rate FiO2 09/27/16 16:00 86 09/27/16 16:00 98.0 86 17 133/77 93 09/27/16 12:00 98.5 68 17 123/64 95 09/27/16 12:00 68 09/27/16 08:00 96 Nasal Cannula 2.00 09/27/16 08:00 98.6 104 14 146/80 96 09/27/16 08:00 104 09/27/16 07:30 100 Nasal Cannula 2.00 09/27/16 06:00 94 09/27/16 04:00 99.0 78 15 149/89 95 09/27/16 04:00 74 09/27/16 02:00 71 09/27/16 00:00 73 09/27/16 00:00 97.9 72 17 141/71 94 09/26/16 22:00 67 09/26/16 20:00 65 09/26/16 20:00 97.6 78 24 155/71 95 Intake & Output 09/27/16 09/27/16 07:00 19:00 Intake Total 1532 ml 636 ml Output Total 1645 ml 850 ml Balance -113 ml -214 ml IV Total 1532 ml 636 ml Output Urine Total 875 ml 550 ml Gastric Drainage Total 700 ml 250 ml Drainage Total 70 ml 50 ml # Bowel Movements 0 Result Diagram: 09/27/16 0455 09/27/16 0455 Imaging Last 24 hours Impressions Chest X-Ray 09/27/16 0600 Signed Impressions: Service Date/Time: Tuesday, September 27, 2016 03:05 - CONCLUSION: Hypoinflation with left basilar atelectasis. Shalom Chery Jr., MD Objective Remarks NAD, AAOx3 Resp NL Ab S/improved distention; appropriately tender NGT in place Incision c/d/i, cisco in place ANN-MARIE drain serosanginous, 70cc output Valentine in place, clear, yellow, good UOP; Bumex has been discontinued with persistent good UOP Ab with reducible umbilical hernia Medications and IVs Current Medications Medications (Trade) Dose Ordered Sig/Néstor Route Start Time Stop Time Status Last Admin (NS Flush) 2 ml UNSCH PRN IV FLUSH 09/21/16 12:45 (NS Flush) 2 ml BID IV FLUSH 09/21/16 21:00 09/27/16 08:48 (Percocet 5-325 Mg) 1 tab Q4H PRN PO 09/21/16 12:45 09/25/16 08:07 (Percocet 5-325 Mg) 2 tab Q4H PRN PO 09/21/16 12:45 (Dilaudid Pf Inj) 2 mg Q2H PRN IV 09/21/16 12:45 09/25/16 09:48 (Ditropan) 5 mg TID PO 09/21/16 13:00 09/27/16 18:24 (Zofran Inj) 4 mg Q6H PRN IV 09/21/16 12:45 09/27/16 15:43 (Heparin Inj) 5,000 units Q12H SQ 09/22/16 12:00 09/27/16 12:00 (Trandate Inj) 20 mg Q3H PRN IV PUSH 09/21/16 17:15 (Apresoline Inj) 10 mg Q2H PRN IV PUSH 09/21/16 17:15 09/24/16 18:23 Docusate Sodium 100 mg 100 mg BID PO 09/23/16 09:00 09/27/16 08:48 (Cardizem Inj/NS Inj) 125 ml @ 0 mls/hr TITRATE IV 09/23/16 08:45 (Protonix Inj) 40 mg Q24H IV PUSH 09/24/16 14:00 09/27/16 13:51 (Dilaudid Pf Inj) 0.2 mg Q4H PRN IV PUSH 09/24/16 13:00 (Norvasc) 10 mg DAILY PO 09/24/16 13:00 09/27/16 08:48 (Lopressor) 25 mg Q12HR PO 09/24/16 13:00 09/27/16 08:48 Haloperidol Lactate 2 mg 2 mg Q6H PRN IV PUSH 09/26/16 21:15 09/27/16 00:03 Dexmedetomidine HCl 200 mcg/ Sodium Chloride 52 ml @ 0 mls/hr TITRATE IV 09/26/16 21:15 Amiodarone HCl 450 mg/Dextrose 250 ml @ 0 mls/hr CONTINUOUS IV 09/27/16 09:15 Potassium Chloride 100 ml @ 50 mls/hr BOLUS ONCE IV 09/27/16 18:15 09/27/16 20:14 09/27/16 18:43 (1/2 NS + KCl 20 Meq Inj) 1,000 ml @ 125 mls/hr Q8H IV 09/27/16 18:15 09/27/16 18:43 Assessment and Plan Assessment and Plan POD #6 Left hand assist lap nephroureterectomy -Continue pain control -Hgb stable -Afib controlled with Amiodarone drip -Cr stabilized at 4.32 today. Bumex off, patient continues to make good urine. Monitor closely. IVF increased by Nephrology -Small bowel follow through indicates ileus, no obvious obstruction -NGT in place. Dulcolax suppository -Continue Hep SQ, ambulation; PT/OT -Will check ANN-MARIE creatinine after stabilization on Creatinine -Valentine catheter to remain in place for 2 weeks post-op. -Appreciate all teams involved in patient care Boaz Cordero MD September 27, 2016 19:16
[2016-09-27] MEDS ORDERED: BISACODYL 10 MG SUPP RECTAL PRN (19:30)
--- NOTE | 2016-09-27 19:49 | EKG ---
Date Performed: 09/26/2016 Time Performed: 22:29:22 PTAGE: 81 years EKG: Sinus rhythm POSSIBLE INFERIOR MYOCARDIAL INFARCTION , PROBABLY OLD BORDERLINE ECG PREVIOUS TRACING : 12/10/2015 09.21 Compared to the previous tracing no ectopy present DOCTOR: Denae Larose Interpretating Date/Time 09/27/2016 19:49:05
[2016-09-28] VITALS (11 sets, daily range): BP systolic 128–153; BP diastolic 56–71; PULSE 70–88; RESP 18–24; TEMP 97.9–99.2; O2SAT 95–99
[2016-09-28] MEDS: HEPARIN SODIUM - SQ 10,000 UNITS/ML VIAL SQ SCH ×3 (00:17→20:36)
[2016-09-28] MEDS: 1/2 NS + KCL 20 MEQ INJ 1,000 ML IV SCH ×4 (02:15→22:04)
[2016-09-28 04:47] LABS: AUTOMATED NEUTROPHIL # 4.4 TH/MM3 (1.8-7.7); BASOPHIL % 0.2 % (0.0-2.0); EOSINOPHIL % 0.6 % (0.0-4.0); HEMATOCRIT 31.9 % (39.0-51.0); HEMO FLAGS DIFF FINAL; LYMPHOCYTE # 0.2 TH/MM3 (1.0-4.8); MEAN CORPUSCULAR HEMOGLOBIN 33.1 PG (27.0-34.0); MEAN CORPUSCULAR HGB CONC 33.7 % (32.0-36.0); MONO % 11.1 % (0.0-8.0); NEUT % 85.1 % (16.0-70.0); PLATELET COUNT 220 TH/MM3 (150-450); RED BLOOD COUNT 3.26 MIL/MM3 (4.50-5.90); RED CELL DISTRIBUTION WIDTH 13.4 % (11.6-17.2); WHITE BLOOD COUNT 5.2 TH/MM3 (4.0-11.0)
[2016-09-28 05:08] LABS: ALKALINE PHOSPHATASE 72 U/L (45-117); ALT (GPT) 15 U/L (12-78); ANION GAP 12 MEQ/L (5-15); AST (GOT) 19 U/L (15-37); BICARBONATE 24.1 MEQ/L (21.0-32.0); BLOOD UREA NITROGEN 100 MG/DL (7-18); CHLORIDE 109 MEQ/L (98-107); GLOMERULAR FILTRATION RATE 16 ML/MIN (>89); MAGNESIUM 3.6 MG/DL (1.5-2.5); POTASSIUM 3.8 MEQ/L (3.5-5.1); SODIUM (NA) 145 MEQ/L (136-145); TOTAL BILIRUBIN ADULT 1.4 MG/DL (0.2-1.0)
[2016-09-28] MEDS: METOPROLOL TARTRATE 25 MG TAB PO SCH ×2 (08:49→20:36)
[2016-09-28] MEDS: DOCUSATE SODIUM 100 MG CAP PO SCH ×2 (08:49→20:35)
[2016-09-28] MEDS: OXYBUTYNIN CHLORIDE 5 MG TAB PO SCH ×3 (08:49→17:42)
[2016-09-28] MEDS: SODIUM CHLORIDE 0.9% FLUSH 10 ML FLUSH IV FLUSH SCH ×2 (08:50→20:36)
[2016-09-28] MEDS: AMIODARONE INJ 450 MG in DEXTROSE 5% IN WATE(EXCEL) INJ 241 ML IV SCH ×2 (10:25)
--- NOTE | 2016-09-28 10:36 | HHI.CCPN ---
Subjective Remarks/Hospital Course 81 y/o man underwent uncomplicated left nephrectomy including ureter down to bladder today. Comes back to ICU looking great, breathing comfortably, warm and well perfused. 09/22: Breathing comfortably. Warm, well perfused. Lungs clear. 09/23: Good response to loop diuretic, > 5 liter, cut rate by 50%. New onset a- fib with RVR. Start cardizem for rate control, add amiodarone for conversion. Continue BID sq heparin, will add full anticoagulation if a-fib persists. Check mag, phos, k. 09/24: Back in NSR but increased ventricular ectopy, episodic burst of a-fib. Breathing much improved after bumex diuresis. Creatine rising; will reduce bumex gtt by 50% again today. Urine remains copious. Add low dose beta gage, continue amiodarone drip.Follow K, Mag, Phos closely. 09/25: Creat worsening, Bumex Dcd. Continues to have nausea and vomiting. CT of the abdomen pelvis from 09/23/16 shows left paraumbilical hernia containing a loop of small bowel. At least partial small bowel obstruction. CT also showed severe right hydronephrosis-urology and nephrology aware 09/26: Cr is 4.5 today, SB follow through done pending now. D/W Dr. Cordero- patient is nonoliguric, and at this time does not meet criteria for starting hemodialysis. In case he needs hemodialysis Dr. Cordero will place a nephrostomy tube for decompression 09/27: Elderly male resting in bed, not in any acute distress. NG tube remains to suction. Continues to make urine though BUN/creatinine remains elevated. Being followed by urology/nephrology who will decide regarding nephrostomy placement/hemodialysis if needed. Patient went back into A. fib following discontinuation of amiodarone drip on 09/26. We'll resume amiodarone drip with bolus. 09/28: Resting in bed comfortably. NG tube put out 900 cc in the last 24 hours. Denies any abdominal pain or nausea. Good urine output. BUN and creatinine remain elevated. Objective Vital Signs Date Time Temp Pulse Resp B/P Pulse Ox O2 Delivery O2 Flow Rate FiO2 09/28/16 08:00 97.9 78 19 153/69 96 09/28/16 08:00 Nasal Cannula 2.00 09/26/16 08:42 21 Intake and Output 09/27/16 09/27/16 09/28/16 08:00 16:00 00:00 Intake Total 618 ml 636 ml 939 ml Output Total 625 ml 850 ml 805 ml Balance -7 ml -214 ml 134 ml Result Diagram: 09/28/16 0344 09/28/16 0344 Imaging Last Impressions Chest X-Ray 09/27/16 0600 Signed Impressions: Service Date/Time: Tuesday, September 27, 2016 03:05 - CONCLUSION: Hypoinflation with left basilar atelectasis. Shalom Chery Jr., MD Abdomen X-Ray 09/25/16 0000 Signed Impressions: Service Date/Time: Sunday, September 25, 2016 18:35 - CONCLUSION: Moderate diffuse gaseous distention of small bowel Curt Bee MD Abdomen/Pelvis CT 09/23/16 0000 Signed Impressions: Service Date/Time: Friday, September 23, 2016 17:42 - CONCLUSION: 1. There is a 2.3 cm left-sided paraumbilical hernia in the anterior abdominal wall containing a loop of bowel resulting in at least a partial small bowel obstruction. There is also gastric distention. 2. Postoperative recent left nephrectomy with residual fluid at the nephrectomy site and some residual free air within the abdomen as well as subcutaneous air in the left chest and abdominal wall. Drainage catheter left lower quadrant. 3. Severe right-sided hydronephrosis and dilatation of right ureter to just above the bladder. Valentine catheter present in the bladder. Berlin Umaña MD Renal Ultrasound 09/22/16 0000 Signed Impressions: Service Date/Time: Thursday, September 22, 2016 17:07 - CONCLUSION: 1. Moderate right hydronephrosis, etiology uncertain. Right ureteral calculus possible. A 7 mm stone is seen at the lower pole that appears to be nonobstructing. 2. Reported left nephrectomy. Large soft tissue structure in the nephrectomy bed. Differential includes residual kidney, shifted spleen and recurrent mass. There is also a large fluid collection medial to the left renal fossa. A CT of the abdomen and pelvis is recommended, preferably with an without intravenous contrast. Curt Tafoya MD Objective Remarks General: Mild distress due to nausea HEENT: Pallor present, , oral Mucosa [place] & Moist Neck: Neck Supple Pulmonary: Breath Sounds Equal, No Distress, Rhonchi, Decreased Bases Cardiology: Regular, Normal Sinus Rhythm Gastrointestinal: Soft, Distended. Mild tenderness L upper and lower quadrant Extremities Exam: Trace Edema Neuro Exam: Alert, Awake, Oriented No FND A/P Assessment and Plan ASSESSMENT Status post left nephroureterectomy Acute renal failure Right hydronephrosis Small bowel obstruction/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 fib Plan: -Patient is non oliguric and the urine out put adequate creatinine continues to remain elevated - 4.35 today -Off IV Bumex -Severe hydronephrosis, urology is aware D/W Dr. Cordero- patient is nonoliguric, and at this time does not meet criteria for starting hemodialysis. In case he needs hemodialysis Dr. Cordero will place a nephrostomy tube for decompression -IV fluids given partial intestinal obstruction, NS 84 ml per hour -General surgery following for ileus - Dr. Hartmann -Keep NPO, NG decompression till cleared by Dr. Hartmann. Will add Reglan 5mg IV Q8hrly to improve GI motility -IV Protonix. Heparin 5000 sq q12 -Monitor BP Hypertension - Resume amiodarone drip if patient converts back to A. fib. Consult hospitalist service for further medical management, critical care will be signing off. D/W [facility]AR[facility] ADMINISTRATOR. Santosh Santana MD September 28, 2016 10:36
[2016-09-28] MEDS: METOCLOPRAMIDE HCL 10 MG/2 ML VIAL IV PUSH SCH ×2 (12:00→18:28)
[2016-09-28] MEDS: PANTOPRAZOLE SODIUM 40 MG VIAL IV PUSH SCH (13:39)
[2016-09-28] MEDS ORDERED: SODIUM CHLOR 0.45% 1000 ML INJ 1,000 ML IV ONE (15:15)
--- NOTE | 2016-09-28 16:53 | HHI.PR ---
Subjective Patient symptoms today POD#7 Left Hand assist Lap Nephroureterectomy Improved today. Pain well controlled. NGT clamped, no N/V. Cr improved. Objective Vital Signs Vital Signs Date Time Temp Pulse Resp B/P Pulse Ox O2 Delivery O2 Flow Rate FiO2 09/28/16 16:00 99.2 70 22 141/65 99 09/28/16 16:00 70 09/28/16 12:00 77 09/28/16 12:00 98.1 77 22 145/71 95 09/28/16 08:00 97.9 78 19 153/69 96 09/28/16 08:00 78 09/28/16 08:00 96 Nasal Cannula 2.00 09/28/16 07:02 96 Nasal Cannula 2.00 09/28/16 06:00 86 09/28/16 04:00 88 09/28/16 04:00 99.1 80 18 128/56 95 09/28/16 02:00 82 09/28/16 00:00 99.2 74 18 151/56 97 09/28/16 00:00 88 09/27/16 22:00 88 09/27/16 20:00 83 09/27/16 20:00 98.0 82 20 167/62 96 09/27/16 19:15 95 Nasal Cannula 2.00 09/27/16 19:15 95 Nasal Cannula 2.00 Intake & Output 09/28/16 09/28/16 07:00 19:00 Intake Total 1869 ml 891 ml Output Total 1765 ml 260 ml Balance 104 ml 631 ml IV Total 1869 ml 891 ml Output Urine Total 1000 ml 150 ml Gastric Drainage Total 650 ml 0 ml Drainage Total 115 ml 110 ml # Bowel Movements 0 Result Diagram: 09/28/16 0344 09/28/16 0344 Objective Remarks NAD, AAOx3 Resp NL Ab S/improved distention; appropriately tender NGT in place and clamped Incision c/d/i, cisco in place ANN-MARIE drain serosanginous, 110cc output Valentine in place, clear, yellow Ab with reducible umbilical hernia Medications and IVs Current Medications Medications (Trade) Dose Ordered Sig/Néstor Route Start Time Stop Time Status Last Admin (NS Flush) 2 ml UNSCH PRN IV FLUSH 09/21/16 12:45 (NS Flush) 2 ml BID IV FLUSH 09/21/16 21:00 09/28/16 08:50 (Percocet 5-325 Mg) 1 tab Q4H PRN PO 09/21/16 12:45 09/25/16 08:07 (Percocet 5-325 Mg) 2 tab Q4H PRN PO 09/21/16 12:45 (Dilaudid Pf Inj) 2 mg Q2H PRN IV 09/21/16 12:45 09/25/16 09:48 (Ditropan) 5 mg TID PO 09/21/16 13:00 09/28/16 13:39 (Zofran Inj) 4 mg Q6H PRN IV 09/21/16 12:45 09/27/16 15:43 (Heparin Inj) 5,000 units Q12H SQ 09/22/16 12:00 09/28/16 12:00 (Trandate Inj) 20 mg Q3H PRN IV PUSH 09/21/16 17:15 (Apresoline Inj) 10 mg Q2H PRN IV PUSH 09/21/16 17:15 09/24/16 18:23 Docusate Sodium 100 mg 100 mg BID PO 09/23/16 09:00 09/28/16 08:49 (Cardizem Inj/NS Inj) 125 ml @ 0 mls/hr TITRATE IV 09/23/16 08:45 (Protonix Inj) 40 mg Q24H IV PUSH 09/24/16 14:00 09/28/16 13:39 (Dilaudid Pf Inj) 0.2 mg Q4H PRN IV PUSH 09/24/16 13:00 (Norvasc) 10 mg DAILY PO 09/24/16 13:00 09/28/16 08:49 (Lopressor) 25 mg Q12HR PO 09/24/16 13:00 09/28/16 08:49 Haloperidol Lactate 2 mg 2 mg Q6H PRN IV PUSH 09/26/16 21:15 09/27/16 00:03 Dexmedetomidine HCl 200 mcg/ Sodium Chloride 52 ml @ 0 mls/hr TITRATE IV 09/26/16 21:15 Amiodarone HCl 450 mg/Dextrose 250 ml @ 0 mls/hr CONTINUOUS IV 09/27/16 09:15 (1/2 NS + KCl 20 Meq Inj) 1,000 ml @ 200 mls/hr Q5H IV 09/27/16 18:15 09/28/16 10:24 (Dulcolax Supp) 10 mg DAILY PRN RECTAL 09/27/16 19:30 (Reglan Inj) 5 mg Q8H IV PUSH 09/28/16 11:00 09/28/16 12:00 Assessment and Plan Assessment and Plan POD #7 Left hand assist lap nephroureterectomy -Continue pain control -Hgb stable -Afib apears to have reverted back to sinus rhythm, off amiodarone -Cr improved today at 3.69. Bumex off, patient continues to make some urine. IVF increased -Small bowel follow through indicates ileus, no obvious obstruction -NGT in place and clamped. Started on clears today. Dulcolax suppository -Continue Hep SQ, ambulation; PT/OT -Will check ANN-MARIE creatinine after stabilization on Creatinine -Valentine catheter to remain in place for 2 weeks post-op. -Appreciate all teams involved in patient care Boaz Cordero MD September 28, 2016 16:53
--- NOTE | 2016-09-28 18:35 | HHI.NPPN ---
Subjective History of Present Illness This patient is an 81-year-old male referred for evaluation and management of acute renal insufficiency. The patient has a somewhat complicated urological history. Patient was recently seen in the office prior to this admission.According to the records I reviewed there is a history of bladder cancer with resection back in 2012. Patient was subsequently diagnosed as having a bilateral hydronephrosis seen on CT urogram as part of an evaluation for microscopic hematuria. 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 Patient subsequently underwent cystoscopy and bilateral retrograde pyelogram and right ureteroscopy with biopsy of her right distal tumor and bilateral ureteral stent placement April 06, 2016. There was mention of bilateral ureteral laser tumor ablation. The right distal tumor was said to be low grade however the left proximal tumor required extensive ablation and pathology returned as a high grade in the left proximal ureter.The left proximal ureteral lesion was described as high-grade and more extensive and sessile in appearance with a biopsy showing invasion to the sub-2 connective tissue with the positive cytology. It was felt that the patient would benefit from a left nephroureterectomy however the patient was said to be hesitant regarding this option given the severity of his renal insufficiency and other comorbidities. In addition the patient has been using Mobic for chronic hip pain on a daily basis for about 2 years now prior to our evaluation.. Status post left nephroureterectomy 09/21/16. prior to surgery an outpatient nucleogram indicated differential kidney function 10% on the left and 90% on the right. Apparently another nephrology service was consulted and a bumetanide drip was started postop and continued over weekend with associated brisk diuresis and worsening azotemia.Patient developed progressive azotemia. He was being followed by another interviewing clerk at that time. When it was learned that I had established with this patient in the office prior to this admission I was contacted by Dr. Rinaldi to take over care. Interval History Patient had no verbal complaints. Indicated that he was passing gas above and below. Review of Systems General General Remarks Denies any symptoms at the present except discomfort from NG tube. Objective Data Data 09/27/16 09/28/16 19:00 07:00 Intake Total 636 ml 1869 ml Output Total 850 ml 1765 ml Balance -214 ml 104 ml IV Total 636 ml 1869 ml Output Urine Total 550 ml 1000 ml Gastric Drainage Total 250 ml 650 ml Drainage Total 50 ml 115 ml # Bowel Movements 0 Vital Signs Date Time Temp Pulse Resp B/P Pulse Ox O2 Delivery O2 Flow Rate FiO2 09/28/16 16:00 99.2 70 22 141/65 99 09/28/16 16:00 70 09/28/16 12:00 77 09/28/16 12:00 98.1 77 22 145/71 95 09/28/16 08:00 97.9 78 19 153/69 96 09/28/16 08:00 78 09/28/16 08:00 96 Nasal Cannula 2.00 09/28/16 07:02 96 Nasal Cannula 2.00 09/28/16 06:00 86 09/28/16 04:00 88 09/28/16 04:00 99.1 80 18 128/56 95 09/28/16 02:00 82 09/28/16 00:00 99.2 74 18 151/56 97 09/28/16 00:00 88 09/27/16 22:00 88 09/27/16 20:00 83 09/27/16 20:00 98.0 82 20 167/62 96 09/27/16 19:15 95 Nasal Cannula 2.00 09/27/16 19:15 95 Nasal Cannula 2.00 -: 09/28/16 0344 09/28/16 0344 Physical Exam General Appearance: No Acute Distress, Comfortable Eyes Eye Exam: Pupils Equal Throat Throat Exam: Oral Mucosa [place] & Moist Neck Neck Exam: Neck Supple Pulmonary Resp Exam: Breath Sounds Equal, No Distress, Decreased Bases Cardiology CV Exam: Regular Gastrointestinal/Abdomen GI Exam: Soft, Distended Extremeties Extremities Exam: No Edema Neurologic Neuro Exam: Alert, Awake, Oriented Psychiatric Psych Exam: Appropriate Responses Assessment/Plan Assessment Summary: YOLA/Acute Renal Failure, CKD Stage III Problem List: (1) Acute renal failure Plan: Urine output was fairly good but slow down today but improved subsequently with increased IV fluids per nurse. Creatinine level significantly improved today. Continue to monitor. Hopefully improvement will continue as discussed with patient but this remains to be determined. Urology uncertain as to significance of hydronephrosis involving solitary kidney. Findings may be chronic in his urine output is quite brisk throwing into question the significance of the hydronephrosis on CAT scan. Urology considering intervention if creatinine level continues to deteriorate. (2) Hypermagnesemia Plan: Likely related to cathartics. Would recommend avoidance of magnesium based laxatives in renal failure as these patient's are prone to hypermagnesemia. (3) Hypertension Plan: Monitor blood pressure (4) History of nephroureterectomy Plan: this admission on left side for malignancy Jason Landry MD September 28, 2016 18:34
[2016-09-29] VITALS (14 sets, daily range): BP systolic 84–145; BP diastolic 55–98; PULSE 75–131; RESP 21–29; TEMP 97.7–100; O2SAT 87–96
[2016-09-29] MEDS: METOCLOPRAMIDE HCL 10 MG/2 ML VIAL IV PUSH SCH ×3 (02:39→18:37)
[2016-09-29] MEDS: 1/2 NS + KCL 20 MEQ INJ 1,000 ML IV SCH ×2 (03:04→11:03)
[2016-09-29] MEDS: LABETALOL HCL 100 MG/20 ML VIAL IV PUSH PRN (04:13)
[2016-09-29] MEDS ORDERED: FUROSEMIDE 40 MG/4 ML VIAL IV PUSH ONE (04:30)
[2016-09-29 04:58] LABS: BASOPHIL % 0.2 % (0.0-2.0); EOSINOPHIL % 0.1 % (0.0-4.0); HEMATOCRIT 30.2 % (39.0-51.0); LYMPH % 4.3 % (9.0-44.0); LYMPHOCYTE # 0.3 TH/MM3 (1.0-4.8); MEAN CELL VOLUME 97.6 FL (80.0-100.0); MEAN CORPUSCULAR HEMOGLOBIN 33.8 PG (27.0-34.0); MEAN CORPUSCULAR HGB CONC 34.6 % (32.0-36.0); MONO % 5.3 % (0.0-8.0); NEUT % 90.1 % (16.0-70.0); PLATELET COUNT 233 TH/MM3 (150-450); RED CELL DISTRIBUTION WIDTH 13.5 % (11.6-17.2); WHITE BLOOD COUNT 6.7 TH/MM3 (4.0-11.0)
[2016-09-29 04:59] LABS: HEMO FLAGS AUTO DIFF
[2016-09-29 05:31] LABS: BICARBONATE 20.1 MEQ/L (21.0-32.0); CALCIUM-PROTEIN CORRECTED 7.7 MG/DL (8.5-10.1); POTASSIUM 4.2 MEQ/L (3.5-5.1); TOTAL BILIRUBIN ADULT 2.3 MG/DL (0.2-1.0)
--- NOTE | 2016-09-29 05:42 | RADRPT ---
EXAM DATE/TIME: 09/29/2016 04:36 [facility] COMPARISON: CHEST SINGLE AP, September 27, 2016, 3:05. INDICATIONS : Shortness of breath. MEDICAL HISTORY : Carcinoma, bladder. SURGICAL HISTORY : Nephrectomy, left. ENCOUNTER: Subsequent ACUITY: 1 week PAIN SCORE: Non-responsive. LOCATION: chest FINDINGS: NG tube is in the stomach. There is a focal new mild infiltrate in the right upper lung. There is a m ild stable infiltrate in the left lung base. Otherwise the rest of lung [place] are grossly clear. The heart size is stable. There are no pleural effusions. CONCLUSION: 1. Stable left lower lung atelectasis. 2. New small infiltrate right upper lung. Josh Burns MD on September 29, 2016 at 5:40 Board Certified Radiologist. This report was verified electronically.
[2016-09-29 08:05] LABS: BANDS 46 % (0-6); NEUTROPHIL # MANUAL DIFF 5.8 TH/MM3 (1.8-7.7); PLASMA CELLS 1 % (0-0); POLYS (SEG NEUTROPHILS) 41 % (16-70); WBC DIFF SAMPLE 100
[2016-09-29 08:06] LABS: PLATELET ESTIMATE SMEAR NORMAL (NORMAL); PLATELET MORPHOLOGY NORMAL (NORMAL); SCAN/DIFF FINAL DIFF MANUAL
[2016-09-29] MEDS: METOPROLOL TARTRATE 25 MG TAB PO SCH ×2 (08:21→21:00)
[2016-09-29] MEDS: OXYBUTYNIN CHLORIDE 5 MG TAB PO SCH ×3 (08:21→18:37)
[2016-09-29] MEDS: DOCUSATE SODIUM 100 MG CAP PO SCH ×2 (08:21→21:00)
[2016-09-29] MEDS: SODIUM CHLORIDE 0.9% FLUSH 10 ML FLUSH IV FLUSH SCH ×2 (08:55→21:00)
[2016-09-29] MEDS ORDERED: ALBUMIN HUMAN 25% 12.5 GM/50 ML BAGP IV ONE (10:15)
[2016-09-29] MEDS ORDERED: DIGOXIN 0.5 MG/2 ML VIAL IV PUSH ONE (10:15)
[2016-09-29] MEDS ORDERED: BUMETANIDE INJ 1 MG/4 ML VIAL ONE (10:48)
[2016-09-29 10:59] LABS: BLOOD GAS BASE EXCESS -12.1 mmol/L (-2-2); BLOOD GAS CARBOXYHEMOGLOBIN 1.1 % (0-4); BLOOD GAS HCO3 12 mmol/L (22-26); BLOOD GAS METHEMOGLOBIN 1.7 % (0-2); BLOOD GAS O2 HGB SATURATION 88 % (90-100); BLOOD GAS PCO2 20 mmHg (38-42); BLOOD GAS PO2 63 mmHg (61-120); BLOOD GAS TOTAL HGB 10.5 G/DL (12.0-16.0); TEMP CORR TO 98.6
[2016-09-29 11:00] LABS: CRITICAL VALUE YES; DRAW SITE RT RADIAL; LITER FLOW 15 L/M; NUMBER OF ARTERIAL PUNCTURES 1; OXYGEN DEVICE PRBR; STAT YES; ULNAR PULSE PRESENT
[2016-09-29] MEDS ORDERED: SODIUM BICARBONATE 8.4% INJ 50 MEQ/50 ML SYR IV ONE (11:00)
[2016-09-29] MEDS ORDERED: BUMETANIDE INJ 1 MG/4 ML VIAL IV PUSH ONE (11:00)
[2016-09-29] MEDS: PHENYLEPHRINE 40 MG/D5W 496 ML ADMIX IV SCH ×2 (11:02)
[2016-09-29] MEDS: DILTIAZEM INJ 125 MG in SODIUM CHLORIDE 0.9% INJ 100 ML IV SCH ×2 (11:43→22:18)
[2016-09-29] MEDS: HEPARIN SODIUM - SQ 10,000 UNITS/ML VIAL SQ SCH (12:00)
--- NOTE | 2016-09-29 12:08 | HHI.NPPN ---
Subjective History of Present Illness This patient is an 81-year-old male referred for evaluation and management of acute renal insufficiency. The patient has a somewhat complicated urological history. Patient was recently seen in the office prior to this admission.According to the records I reviewed there is a history of bladder cancer with resection back in 2012. Patient was subsequently diagnosed as having a bilateral hydronephrosis seen on CT urogram as part of an evaluation for microscopic hematuria. 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 Patient subsequently underwent cystoscopy and bilateral retrograde pyelogram and right ureteroscopy with biopsy of her right distal tumor and bilateral ureteral stent placement April 06, 2016. There was mention of bilateral ureteral laser tumor ablation. The right distal tumor was said to be low grade however the left proximal tumor required extensive ablation and pathology returned as a high grade in the left proximal ureter.The left proximal ureteral lesion was described as high-grade and more extensive and sessile in appearance with a biopsy showing invasion to the sub-2 connective tissue with the positive cytology. It was felt that the patient would benefit from a left nephroureterectomy however the patient was said to be hesitant regarding this option given the severity of his renal insufficiency and other comorbidities. In addition the patient has been using Mobic for chronic hip pain on a daily basis for about 2 years now prior to our evaluation.. Status post left nephroureterectomy 09/21/16. prior to surgery an outpatient nucleogram indicated differential kidney function 10% on the left and 90% on the right. Apparently another nephrology service was consulted and a bumetanide drip was started postop and continued over weekend with associated brisk diuresis and worsening azotemia.Patient developed progressive azotemia. He was being followed by another hrbp at that time. When it was learned that I had established with this patient in the office prior to this admission I was contacted by Dr. Rinaldi to take over care. Interval History The patient is on O2 at the present in mild respiratory distress Was hypotensive yesterday evening and responded to fluid bolus and increase in IVF. Developed acute shortness of breath early this AM. Dr. Baez was contacted and was given Lasix 40mg IVP. BP dropped and the patient became tachy. Was given Labetalol for tachycardia, but persisted. Started on Digoxin with overall minimal response Now on Simba for BP stabilization. IVF has been held. CC gave Bumex 2mg IVP. Respiratory distress improved. (Amanda Jade) Review of Systems Respiratory Lungs: SOB (Amanda Jade) Objective Data Data 09/28/16 09/29/16 19:00 07:00 Intake Total 891 ml 3348 ml Output Total 260 ml 1590 ml Balance 631 ml 1758 ml IV Total 891 ml 3348 ml Output Urine Total 150 ml 1400 ml Gastric Drainage Total 0 ml 0 ml Drainage Total 110 ml 190 ml # Bowel Movements 0 0 Vital Signs Date Time Temp Pulse Resp B/P Pulse Ox O2 Delivery O2 Flow Rate FiO2 09/29/16 10:57 96 Partial Rebreather 15.00 09/29/16 07:00 92 Nasal Cannula 4.00 09/29/16 06:00 79 09/29/16 04:00 98.0 75 21 145/98 90 09/29/16 04:00 75 09/29/16 02:00 89 09/29/16 00:00 98.0 79 23 118/61 92 09/29/16 00:00 79 09/28/16 22:00 72 09/28/16 20:00 98.1 84 24 131/60 95 09/28/16 20:00 84 09/28/16 19:00 95 Nasal Cannula 2.00 09/28/16 19:00 95 Nasal Cannula 2.00 09/28/16 16:00 99.2 70 22 141/65 99 09/28/16 16:00 70 09/28/16 12:00 77 09/28/16 12:00 98.1 77 22 145/71 95 (Amanda Jade) -: 09/29/16 0433 09/29/16 0433 Imaging Last Impressions Chest X-Ray 09/29/16 0000 Signed Impressions: Service Date/Time: Thursday, September 29, 2016 04:36 - CONCLUSION: 1. Stable left lower lung atelectasis. 2. New small infiltrate right upper lung. Josh Burns MD Small Bowel X-Ray 09/26/16 0000 Signed Impressions: Service Date/Time: Monday, September 26, 2016 09:10 - CONCLUSION: Diffuse small bowel distention and probable ileus. Wilfredo Stephenson MD Abdomen X-Ray 09/25/16 0000 Signed Impressions: Service Date/Time: Sunday, September 25, 2016 18:35 - CONCLUSION: Moderate diffuse gaseous distention of small bowel Curt Bee MD Abdomen/Pelvis CT 09/23/16 0000 Signed Impressions: Service Date/Time: Friday, September 23, 2016 17:42 - CONCLUSION: 1. There is a 2.3 cm left-sided paraumbilical hernia in the anterior abdominal wall containing a loop of bowel resulting in at least a partial small bowel obstruction. There is also gastric distention. 2. Postoperative recent left nephrectomy with residual fluid at the nephrectomy site and some residual free air within the abdomen as well as subcutaneous air in the left chest and abdominal wall. Drainage catheter left lower quadrant. 3. Severe right-sided hydronephrosis and dilatation of right ureter to just above the bladder. Valentine catheter present in the bladder. Berlin Umaña MD Renal Ultrasound 09/22/16 0000 Signed Impressions: Service Date/Time: Thursday, September 22, 2016 17:07 - CONCLUSION: 1. Moderate right hydronephrosis, etiology uncertain. Right ureteral calculus possible. A 7 mm stone is seen at the lower pole that appears to be nonobstructing. 2. Reported left nephrectomy. Large soft tissue structure in the nephrectomy bed. Differential includes residual kidney, shifted spleen and recurrent mass. There is also a large fluid collection medial to the left renal fossa. A CT of the abdomen and pelvis is recommended, preferably with an without intravenous contrast. Curt Tafoya MD Medication Review Current Medications Medications (Trade) Dose Ordered Sig/Néstor Route Start Time Stop Time Status Last Admin (NS Flush) 2 ml UNSCH PRN IV FLUSH 09/21/16 12:45 (NS Flush) 2 ml BID IV FLUSH 09/21/16 21:00 09/28/16 20:36 (Percocet 5-325 Mg) 1 tab Q4H PRN PO 09/21/16 12:45 09/25/16 08:07 (Percocet 5-325 Mg) 2 tab Q4H PRN PO 09/21/16 12:45 (Dilaudid Pf Inj) 2 mg Q2H PRN IV 09/21/16 12:45 09/25/16 09:48 (Ditropan) 5 mg TID PO 09/21/16 13:00 09/29/16 08:21 (Zofran Inj) 4 mg Q6H PRN IV 09/21/16 12:45 09/27/16 15:43 (Heparin Inj) 5,000 units Q12H SQ 09/22/16 12:00 09/28/16 20:36 (Trandate Inj) 20 mg Q3H PRN IV PUSH 09/21/16 17:15 09/29/16 04:13 (Apresoline Inj) 10 mg Q2H PRN IV PUSH 09/21/16 17:15 09/24/16 18:23 Docusate Sodium 100 mg 100 mg BID PO 09/23/16 09:00 09/29/16 08:21 (Cardizem Inj/NS Inj) 125 ml @ 0 mls/hr TITRATE IV 09/23/16 08:45 09/29/16 11:43 (Protonix Inj) 40 mg Q24H IV PUSH 09/24/16 14:00 09/28/16 13:39 (Dilaudid Pf Inj) 0.2 mg Q4H PRN IV PUSH 09/24/16 13:00 (Norvasc) 10 mg DAILY PO 09/24/16 13:00 09/28/16 08:49 (Lopressor) 25 mg Q12HR PO 09/24/16 13:00 09/29/16 08:21 Haloperidol Lactate 2 mg 2 mg Q6H PRN IV PUSH 09/26/16 21:15 09/27/16 00:03 Dexmedetomidine HCl 200 mcg/ Sodium Chloride 52 ml @ 0 mls/hr TITRATE IV 09/26/16 21:15 Amiodarone HCl 450 mg/Dextrose 250 ml @ 0 mls/hr CONTINUOUS IV 09/27/16 09:15 (1/2 NS + KCl 20 Meq Inj) 1,000 ml @ 100 mls/hr Q10H IV 09/27/16 18:15 09/28/16 22:04 (Dulcolax Supp) 10 mg DAILY PRN RECTAL 09/27/16 19:30 Metoclopramide HCl 5 mg 5 mg Q8H IV PUSH 09/28/16 11:00 09/28/16 18:28 (Neosynephrine Inj/D5W 500 ml Inj) 500 ml @ 0 mls/hr TITRATE IV 09/29/16 11:00 09/29/16 11:02 (Amanda Jade) Physical Exam General Appearance Remarks Mild respiratory distress, tachypneic (Amanda Jade) Eyes Eye Exam: Pupils Equal (Amanda Jade) Ears & Nose Ears & Nose Remarks NG tube present R nare (Amanda Jade) Throat Throat Exam: Oral Mucosa [place] & Moist (Amanda Jade) Neck Neck Exam: Neck Supple (Amanda Jade) Pulmonary Resp Exam: Breath Sounds Equal, Decreased Bases, Labored Resp Remarks tachypneic (Amanda Jade) Cardiology CV Exam: Regular, Tachycardia (Amanda Jade) Gastrointestinal/Abdomen GI Exam: Soft, Distended (Amanda Jade) Extremeties Extremities Exam: No Edema (Amanda Jade) Neurologic Neuro Exam: Alert, Awake, Oriented (Amanda Jade) Psychiatric Psych Exam: Appropriate Responses (Amanda Jade) Assessment/Plan Assessment Summary: YOLA/Acute Renal Failure, CKD Stage III Problem List: (1) Acute renal failure Plan: SCr mesha today---potential hemodynamic Will repeat renal US to assess hydro again. If appears to be worsening, consideration for urological intervention should be given especially in light of recent events and now worsening azotemia. The patient remains nonoliguric, but remains to be seen how renal functions will result tomorrow. As discussed with both the patient and his , his renal functions may be worse tomorrow. Urology has mentioned nephrostomy tube if dialysis was being considered. Will repeat BCx Agree with stopping IVF for the present s/p diuretics today x2 doses. Discussed with Dr. Landry as well as Dr. Elias (2) Acute respiratory distress Plan: Mgmt as per CC Improved with bicarb and O2. CXR reviewed Sputum cultures pending (3) Hypermagnesemia Plan: Likely related to cathartics. Would recommend avoidance of magnesium based laxatives in renal failure as these patient's are prone to hypermagnesemia. (4) Hypertension Plan: BP meds held Now on Simba for hypotension Cardizem being started by CC for HR control (5) History of nephroureterectomy Plan: this admission on left side for malignancy Plan Time spent: 43 minutes (Amanda Jade) Plan Events overnight noted. Difficult to say if worsening of renal indices related to hemodynamic effects as opposed to partial urinary tract obstruction. We'll defer decision on nephrostomy tube to urology. Repeat renal indices in a.m. If the patient does require dialytic support despite improved hemodynamics I believe consideration should be given to the nephrostomy tube since there is some uncertainty as to the significance of the hydronephrosis noted on imaging. Discussed the situation with patient's son who was in the room. The exam, history, and the medical decision-making described in the above note were completed with the assistance of the PA-C. I reviewed and agree with the findings presented. I attest that I had a [id number] encounter with the patient on the same day, and personally performed and documented my assessment and findings in the medical record. (Jason Landry MD) Amanda Jade September 29, 2016 12:08 Jason Landry MD September 29, 2016 16:51
--- NOTE | 2016-09-29 12:17 | HHI.PR ---
Subjective Subjective Notes 81 y/o man underwent uncomplicated left nephrectomy including ureter down to bladder. Last night he appeared to have multiple cardiopulmonary events. He is currently in Afib and on pressors for BP support. He is on a partial non- rebreather. Objective Vitals/I&O I&O 09/28/16 09/28/16 09/29/16 15:00 23:00 07:00 Intake Total 891 ml 2768 ml 580 ml Output Total 260 ml 810 ml 780 ml Balance 631 ml 1958 ml -200 ml IV Total 891 ml 2768 ml 580 ml Output Urine Total 150 ml 700 ml 700 ml Gastric Drainage Total 0 ml 0 ml Drainage Total 110 ml 110 ml 80 ml # Bowel Movements 0 0 0 Vital Signs Date Time Temp Pulse Resp B/P Pulse Ox O2 Delivery O2 Flow Rate FiO2 09/29/16 10:57 96 Partial Rebreather 15.00 09/29/16 06:00 79 09/29/16 04:00 98.0 21 145/98 09/26/16 08:42 21 Labs Laboratory Tests Test 09/29/16 09/29/16 04:33 10:40 White Blood Count 6.7 Red Blood Count 3.10 Hemoglobin 10.5 Hematocrit 30.2 Mean Corpuscular Volume 97.6 Mean Corpuscular Hemoglobin 33.8 Mean Corpuscular Hemoglobin 34.6 Concent Red Cell Distribution Width 13.5 Platelet Count 233 Mean Platelet Volume 8.0 Neutrophils (%) (Auto) 90.1 Lymphocytes (%) (Auto) 4.3 Monocytes (%) (Auto) 5.3 Eosinophils (%) (Auto) 0.1 Basophils (%) (Auto) 0.2 Neutrophils # (Auto) 6.0 Lymphocytes # (Auto) 0.3 Monocytes # (Auto) 0.4 Eosinophils # (Auto) 0.0 Basophils # (Auto) 0.0 CBC Comment AUTO DIFF Differential Total Cells 100 Counted Neutrophils % (Manual) 41 Band Neutrophils % 46 Lymphocytes % 9 Monocytes % 3 Neutrophils # (Manual) 5.8 Differential Comment FINAL DIFF MANUAL Plasma Cells 1 Platelet Estimate NORMAL Platelet Morphology Comment NORMAL Red Cell Morphology Comment NORMAL Sodium Level 140 Potassium Level 4.2 Chloride Level 109 Carbon Dioxide Level 20.1 Anion Gap 11 Blood Urea Nitrogen 110 Creatinine 4.51 Estimat Glomerular Filtration 13 Rate Random Glucose 109 Calcium Level 7.2 Protein Corrected Calcium 7.7 Total Bilirubin 2.3 Aspartate Amino Transf 22 (AST/SGOT) Alanine Aminotransferase 16 (ALT/SGPT) Alkaline Phosphatase 73 Total Protein 6.1 Albumin 2.5 Blood Gas Puncture Site RT RADIAL Blood Gas Patient Temperature 98.6 Blood Gas HCO3 12 Blood Gas Base Excess -12.1 Blood Gas Oxygen Saturation 88 Arterial Blood pH 7.39 Arterial Blood Partial 20 Pressure CO2 Arterial Blood Partial 63 Pressure O2 Arterial Blood Oxygen Content 13.0 Arterial Blood 1.1 Carboxyhemoglobin Arterial Blood Methemoglobin 1.7 Blood Gas Hemoglobin 10.5 Oxygen Delivery Device PRBR Blood Gas Liter Flow 15 Radiology Last Impressions Chest X-Ray 09/29/16 0000 Signed Impressions: Service Date/Time: Thursday, September 29, 2016 04:36 - CONCLUSION: 1. Stable left lower lung atelectasis. 2. New small infiltrate right upper lung. Josh Burns MD Small Bowel X-Ray 09/26/16 0000 Signed Impressions: Service Date/Time: Monday, September 26, 2016 09:10 - CONCLUSION: Diffuse small bowel distention and probable ileus. Wilfredo Stephenson MD Abdomen X-Ray 09/25/16 0000 Signed Impressions: Service Date/Time: Sunday, September 25, 2016 18:35 - CONCLUSION: Moderate diffuse gaseous distention of small bowel Curt Bee MD Abdomen/Pelvis CT 09/23/16 0000 Signed Impressions: Service Date/Time: Friday, September 23, 2016 17:42 - CONCLUSION: 1. There is a 2.3 cm left-sided paraumbilical hernia in the anterior abdominal wall containing a loop of bowel resulting in at least a partial small bowel obstruction. There is also gastric distention. 2. Postoperative recent left nephrectomy with residual fluid at the nephrectomy site and some residual free air within the abdomen as well as subcutaneous air in the left chest and abdominal wall. Drainage catheter left lower quadrant. 3. Severe right-sided hydronephrosis and dilatation of right ureter to just above the bladder. Valentine catheter present in the bladder. [place] Umaña MD Renal Ultrasound 09/22/16 0000 Signed Impressions: Service Date/Time: Thursday, September 22, 2016 17:07 - CONCLUSION: 1. Moderate right hydronephrosis, etiology uncertain. Right ureteral calculus possible. A 7 mm stone is seen at the lower pole that appears to be nonobstructing. 2. Reported left nephrectomy. Large soft tissue structure in the nephrectomy bed. Differential includes residual kidney, shifted spleen and recurrent mass. There is also a large fluid collection medial to the left renal fossa. A CT of the abdomen and pelvis is recommended, preferably with an without intravenous contrast. Curt Tafoya MD Cardiovascular: Irregular Lungs: Other (diminished and some crackles in the bases) Extremities: Perfused Narrative Exam Abdomen still slightly distended. NGT to LIWS A/P Assessment and Plan Continue to keep NGT to suction The exam, history, and the medical decision-making described in the above note were completed with the assistance of the mid-level provider. I reviewed and agree with the findings presented. I attest that I had a [id number] encounter with the patient on the same day, and personally performed and documented my assessment and findings in the medical record. Discharge Planning Will re-asses with cardiac status becomes stable Christine Munoz September 29, 2016 12:17 Hilario Hernandez MD October 04, 2016 09:37
--- NOTE | 2016-09-29 12:30 | HHI.CCPN ---
Subjective Remarks/Hospital Course 81 y/o man underwent uncomplicated left nephrectomy including ureter down to bladder today. Comes back to ICU looking great, breathing comfortably, warm and well perfused. 09/22: Breathing comfortably. Warm, well perfused. Lungs clear. 09/23: Good response to loop diuretic, > 5 liter, cut rate by 50%. New onset a- fib with RVR. Start cardizem for rate control, add amiodarone for conversion. Continue BID sq heparin, will add full anticoagulation if a-fib persists. Check mag, phos, k. 09/24: Back in NSR but increased ventricular ectopy, episodic burst of a-fib. Breathing much improved after bumex diuresis. Creatine rising; will reduce bumex gtt by 50% again today. Urine remains copious. Add low dose beta gage, continue amiodarone drip.Follow K, Mag, Phos closely. 09/25: Creat worsening, Bumex Dcd. Continues to have nausea and vomiting. CT of the abdomen pelvis from 09/23/16 shows left paraumbilical hernia containing a loop of small bowel. At least partial small bowel obstruction. CT also showed severe right hydronephrosis-urology and nephrology aware 09/26: Cr is 4.5 today, SB follow through done pending now. D/W Dr. Cordero- patient is nonoliguric, and at this time does not meet criteria for starting hemodialysis. In case he needs hemodialysis Dr. Cordero will place a nephrostomy tube for decompression 09/27: Elderly male resting in bed, not in any acute distress. NG tube remains to suction. Continues to make urine though BUN/creatinine remains elevated. Being followed by urology/nephrology who will decide regarding nephrostomy placement/hemodialysis if needed. Patient went back into A. fib following discontinuation of amiodarone drip on 09/26. We'll resume amiodarone drip with bolus. 09/28: Resting in bed comfortably. NG tube put out 900 cc in the last 24 hours. Denies any abdominal pain or nausea. Good urine output. BUN and creatinine remain elevated. 09/29: Acutely decompensated respiratory fontaine, with hypoxia. Also in A. fib with RVR with hypotension. Received metoprolol in a.m., no response to digoxin. On my exam patient was tachypneic hypoxemic requiring 100% nonrebreather. Systolic blood pressure was in the high 70s. I placed him on Simba-Synephrine, and have ordered Cardizem infusion, IV Albumin 25 GM x1. All IV fluids discontinued, Bumex 2 mg IV 1 given. Explained to possibility of intubation-patient is not a BiPAP candidate due to small bowel obstruction. Objective Vital Signs Date Time Temp Pulse Resp B/P Pulse Ox O2 Delivery O2 Flow Rate FiO2 09/29/16 10:57 96 Partial Rebreather 15.00 09/29/16 06:00 79 09/29/16 04:00 98.0 21 145/98 09/26/16 08:42 21 Intake and Output 09/28/16 09/28/16 09/28/16 07:59 15:59 23:59 Intake Total 930 ml 891 ml 2768 ml Output Total 960 ml 260 ml 810 ml Balance -30 ml 631 ml 1958 ml Result Diagram: 09/29/16 0433 09/29/16 0433 Other Results Laboratory Tests Test 09/29/16 10:40 Blood Gas Puncture Site RT RADIAL Blood Gas Patient Temperature 98.6 Blood Gas HCO3 12 mmol/L (22-26) Blood Gas Base Excess -12.1 mmol/L (-2-2) Blood Gas Oxygen Saturation 88 % (90-100) Arterial Blood pH 7.39 (7.380-7.420) Arterial Blood Partial 20 mmHg (38-42) Pressure CO2 Arterial Blood Partial 63 mmHg Pressure O2 (61-120) Arterial Blood Oxygen Content 13.0 Vol % (12.0-20.0) Arterial Blood 1.1 % (0-4) Carboxyhemoglobin Arterial Blood Methemoglobin 1.7 % (0-2) Blood Gas Hemoglobin 10.5 G/DL (12.0-16.0) Oxygen Delivery Device PRBR Blood Gas Liter Flow 15 L/M Imaging Last Impressions Chest X-Ray 09/27/16 0600 Signed Impressions: Service Date/Time: Tuesday, September 27, 2016 03:05 - CONCLUSION: Hypoinflation with left basilar atelectasis. Shalom Chery Jr., MD Abdomen X-Ray 09/25/16 0000 Signed Impressions: Service Date/Time: Sunday, September 25, 2016 18:35 - CONCLUSION: Moderate diffuse gaseous distention of small bowel Curt Bee MD Abdomen/Pelvis CT 09/23/16 0000 Signed Impressions: Service Date/Time: Friday, September 23, 2016 17:42 - CONCLUSION: 1. There is a 2.3 cm left-sided paraumbilical hernia in the anterior abdominal wall containing a loop of bowel resulting in at least a partial small bowel obstruction. There is also gastric distention. 2. Postoperative recent left nephrectomy with residual fluid at the nephrectomy site and some residual free air within the abdomen as well as subcutaneous air in the left chest and abdominal wall. Drainage catheter left lower quadrant. 3. Severe right-sided hydronephrosis and dilatation of right ureter to just above the bladder. Valentine catheter present in the bladder. Berlin Umaña MD Renal Ultrasound 09/22/16 0000 Signed Impressions: Service Date/Time: Thursday, September 22, 2016 17:07 - CONCLUSION: 1. Moderate right hydronephrosis, etiology uncertain. Right ureteral calculus possible. A 7 mm stone is seen at the lower pole that appears to be nonobstructing. 2. Reported left nephrectomy. Large soft tissue structure in the nephrectomy bed. Differential includes residual kidney, shifted spleen and recurrent mass. There is also a large fluid collection medial to the left renal fossa. A CT of the abdomen and pelvis is recommended, preferably with an without intravenous contrast. Curt Tafoya MD Objective Remarks General: Tachypnea and anxious, maintaining oxygen saturation 100% nonrebreather HEENT: Pallor present, oral Mucosa [place] & Moist Neck: Neck Supple Pulmonary: Breath Sounds Equal, scattered Rhonchi, Decreased Bases Cardiology: Atrial fibrillation with rapid ventricular response, hypotensive Gastrointestinal: Soft, Distended. Mild tenderness L upper and lower quadrant Extremities Exam: Trace Edema Neuro Exam: Alert, Awake, Oriented No FND A/P Assessment and Plan ASSESSMENT Acute hypoxemic respiratory failure Metabolic acidosis Atrial fibrillation with RVR Acute renal failure Status post left nephroureterectomy Right hydronephrosis Small bowel obstruction/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 fib Plan: -Placed on 100% NRB. Not a candidate for BiPAP due to small bowel obstruction -I have explained to the patient and his that patient may need endotracheal intubation if not improving with IV Bumex -IV Bumex 2 mg 1 stat and stop all IV fluids -Repeat chest x-ray after central line placement -2 Amps of bicarbonate given for metabolic acidosis -Start Simba-Synephrine to maintain map above 65 -Cardizem infusion to keep heart rate less than 110 -Patient is non oliguric and the urine out put adequate creatinine increased from 3.7to 4.5 today -Severe hydronephrosis, urology is aware. D/W Dr. Cordero- In case he needs hemodialysis Dr. Cordero will place a nephrostomy tube for decompression -General surgery following for ileus - Dr. Hartmann -Keep NPO again, NG decompression. Reglan 5mg IV Q8hrly to improve GI motility added 09/28 -IV Protonix. Heparin 5000 sq q12 -Monitor BP Hypertension -Off amiodarone gtt D/W DAILY RELEASE AND DUPE PRINTER, updated at bedside. D/W Nephrology team. Shannan Elias MD September 29, 2016 12:30 Shannan Elias MD September 29, 2016 12:30
[2016-09-29] MEDS: PANTOPRAZOLE SODIUM 40 MG VIAL IV PUSH SCH (13:59)
[2016-09-29] MEDS ORDERED: LORazepam 2 MG/ML VIAL ONE (17:14)
--- NOTE | 2016-09-29 18:34 | RADRPT ---
EXAM DATE/TIME: 09/29/2016 18:10 [facility] COMPARISON: CHEST SINGLE AP, September 26, 2016, 5:02. CHEST SINGLE AP, September 29, 2016, 4:36. INDICATIONS : Evaluate for central line placement. MEDICAL HISTORY : None. SURGICAL HISTORY : None. ENCOUNTER: Subsequent ACUITY: 1 day PAIN SCORE: Non-responsive. LOCATION: Bilateral chest FINDINGS: Left neck central line descends into the SVC. There is no evidence of pneumothorax or complication of placement. Nasogastric tube remains in place. Persistent mild bibasilar parenchymal opacity and smal l effusions, unchanged CONCLUSION: Satisfactory central line positioning. Otherwise stable chest. Curt Bee MD on September 29, 2016 at 18:31 Board Certified Radiologist. This report was verified electronically.
[2016-09-29] MEDS ORDERED: LORazepam 2 MG/ML VIAL IV ONE (19:00)
--- NOTE | 2016-09-29 20:03 | HHI.PR ---
Subjective Patient symptoms today POD#8 Left hand assist lap nephroureterectomy Decompensated overnight. Respiratory distress, nonrebreather. Afib RVR. NGT with 700cc, bilious Objective Vital Signs Vital Signs Date Time Temp Pulse Resp B/P Pulse Ox O2 Delivery O2 Flow Rate FiO2 09/29/16 18:00 84 09/29/16 16:02 83 09/29/16 16:00 98.4 83 29 105/55 95 09/29/16 14:00 84 09/29/16 12:00 122 09/29/16 12:00 100.0 122 29 113/58 87 09/29/16 10:57 96 Partial Rebreather 15.00 09/29/16 10:30 88 Partial Non-Rebreather 15.00 09/29/16 10:00 131 09/29/16 08:00 97.7 87 23 84/61 92 09/29/16 08:00 87 09/29/16 07:00 92 Nasal Cannula 4.00 09/29/16 06:00 79 09/29/16 04:00 98.0 75 21 145/98 90 09/29/16 04:00 75 09/29/16 02:00 89 09/29/16 00:00 98.0 79 23 118/61 92 09/29/16 00:00 79 09/28/16 22:00 72 09/28/16 20:00 98.1 84 24 131/60 95 09/28/16 20:00 84 Intake & Output 09/29/16 09/29/16 07:00 19:00 Intake Total 3348 ml 570 ml Output Total 1590 ml 1750 ml Balance 1758 ml -1180 ml Intake Oral 180 ml IV Total 3348 ml 390 ml Output Urine Total 1400 ml 1200 ml Gastric Drainage Total 0 ml 500 ml Drainage Total 190 ml 50 ml # Bowel Movements 0 1 Result Diagram: 09/29/16 0433 09/29/16 0433 Imaging Last 24 hours Impressions Chest X-Ray 09/29/16 0000 Signed Impressions: Service Date/Time: Thursday, September 29, 2016 18:10 - CONCLUSION: Satisfactory central line positioning. Otherwise stable chest. Curt Bee MD Chest X-Ray 09/29/16 0000 Signed Impressions: Service Date/Time: Thursday, September 29, 2016 04:36 - CONCLUSION: 1. Stable left lower lung atelectasis. 2. New small infiltrate right upper lung. Josh Burns MD Objective Remarks NAD, AAOx3 Resp Labored with nonrebreather mask Ab S; distended; appropriately tender NGT in place with bilious output Incision c/d/i, cisco in place ANN-MARIE drain clear fluid, serous Valentine in place, clear, yellow Ab with reducible umbilical hernia Medications and IVs Current Medications Medications (Trade) Dose Ordered Sig/Néstor Route Start Time Stop Time Status Last Admin (NS Flush) 2 ml UNSCH PRN IV FLUSH 09/21/16 12:45 (NS Flush) 2 ml BID IV FLUSH 09/21/16 21:00 09/28/16 20:36 (Percocet 5-325 Mg) 1 tab Q4H PRN PO 09/21/16 12:45 09/25/16 08:07 (Percocet 5-325 Mg) 2 tab Q4H PRN PO 09/21/16 12:45 (Dilaudid Pf Inj) 2 mg Q2H PRN IV 09/21/16 12:45 09/25/16 09:48 (Ditropan) 5 mg TID PO 09/21/16 13:00 09/29/16 18:37 (Zofran Inj) 4 mg Q6H PRN IV 09/21/16 12:45 09/27/16 15:43 (Heparin Inj) 5,000 units Q12H SQ 09/22/16 12:00 09/28/16 20:36 (Trandate Inj) 20 mg Q3H PRN IV PUSH 09/21/16 17:15 09/29/16 04:13 (Apresoline Inj) 10 mg Q2H PRN IV PUSH 09/21/16 17:15 09/24/16 18:23 Docusate Sodium 100 mg 100 mg BID PO 09/23/16 09:00 09/29/16 08:21 (Cardizem Inj/NS Inj) 125 ml @ 0 mls/hr TITRATE IV 09/23/16 08:45 09/29/16 11:43 (Protonix Inj) 40 mg Q24H IV PUSH 09/24/16 14:00 09/29/16 13:59 (Dilaudid Pf Inj) 0.2 mg Q4H PRN IV PUSH 09/24/16 13:00 (Norvasc) 10 mg DAILY PO 09/24/16 13:00 09/28/16 08:49 (Lopressor) 25 mg Q12HR PO 09/24/16 13:00 09/29/16 08:21 Haloperidol Lactate 2 mg 2 mg Q6H PRN IV PUSH 09/26/16 21:15 09/27/16 00:03 (Cordarone Inj/ D5W ([place]) Inj) 250 ml @ 0 mls/hr CONTINUOUS IV 09/27/16 09:15 (Dulcolax Supp) 10 mg DAILY PRN RECTAL 09/27/16 19:30 Metoclopramide HCl 5 mg 5 mg Q8H IV PUSH 09/28/16 11:00 09/29/16 18:37 (Neosynephrine Inj/D5W 500 ml Inj) 500 ml @ 0 mls/hr TITRATE IV 09/29/16 11:00 09/29/16 11:02 Assessment and Plan Assessment and Plan POD #8 Left hand assist lap nephroureterectomy -Continue pain control -Hgb stable -Afib with RVR again. Cardizem -Cr worsened today to 4.69. -Respiratory status worsened. CXR with small infiltrate noted -Will obtain CT scan of the chest/ab/pel to evaluate lungs for possible PE (Cr elevated for CTA) and Ab/pelvis for the prolonged ileus/obstruction. -Bilateral LE doppler to rule out DVT -NGT in place, over 700cc output today and bilious. +flatus and some small stool yesterday -Continue Hep SQ, ambulation; PT/OT -Will check ANN-MARIE creatinine after stabilization on Creatinine -Valentine catheter to remain in place for 2 weeks post-op. -Appreciate all teams involved in patient care Boaz Cordero MD September 29, 2016 20:03
--- NOTE | 2016-09-29 20:59 | RADRPT ---
EXAM DATE/TIME: 09/29/2016 20:30 [facility] COMPARISON: CT ABDOMEN & PELVIS W/O CONTRAST, September 23, 2016, 17:42. INDICATIONS : Abdomen pain. ORAL CONTRAST: No oral contrast ingested. RADIATION DOSE: 19.21 CTDIvol (mGy) ; Combined studies - Thorax/Abdomen/Pelvis MEDICAL HISTORY : Hypertension. Carcinoma, bladder. carcinoma, renal. SURGICAL HISTORY : Nephroureterectomy, left. ENCOUNTER: Subsequent ACUITY: 1 week PAIN SCALE: 9/10 LOCATION: abdomen TECHNIQUE: Volumetric scanning of the abdomen and pelvis was performed. Using automated exposure control and ad justment of the mA and/or kV according to patient size, radiation dose was kept as low as reasonably achievable to obtain optimal diagnostic quality images. FINDINGS: LOWER LUNGS: There are persistent consolidative changes in the lung bases bilaterally, slightly worse than previou s with small effusion on the left. LIVER: Homogeneous density without lesion. There is no dilation of the biliary tree. No calcified gallston es. SPLEEN: Normal size without lesion. PANCREAS: Within normal limits. KIDNEYS: Left kidney is surgically absent. Fluid collection in the left renal fossa is grossly unchanged. Righ t kidney again notable for moderate hydronephrosis and hydroureter. ADRENAL GLANDS: Within normal limits. VASCULAR: There is no aortic aneurysm. BOWEL/MESENTERY: Nasogastric tube extends into the stomach. There is prominent dilatation of small bowel in the upper abdomen with loops dilated to greater than 5 cm which represents worsening from prior appearance. The re appears to be a transition point in the upper central abdomen just right of midline which may be s ite of an adhesion. ABDOMINAL WALL: Small fat containing umbilical hernia, no longer containing a knuckle of bowel. RETROPERITONEUM: There is no lymphadenopathy. BLADDER: Decompressed with Valentine catheter. REPRODUCTIVE: Within normal limits. INGUINAL: Small fat and fluid containing inguinal hernias. MUSCULOSKELETAL: Total hip arthroplasty on the left. Degenerative changes. CONCLUSION: Worsening appearance of small bowel obstruction. See above discussion Curt Bee MD on September 29, 2016 at 20:49 Board Certified Radiologist. This report was verified electronically.
--- NOTE | 2016-09-29 21:01 | RADRPT ---
EXAM DATE/TIME: 09/29/2016 20:30 [facility] COMPARISON: CHEST SINGLE AP, September 29, 2016, 18:10. INDICATIONS : Shortness of breath. RADIATION DOSE: 19.21 CTDIvol (mGy) ; Combined studies - Thorax/Abdomen/Pelvis MEDICAL HISTORY : Carcinoma, bladder. Hypertension. Carcinoma, renal. SURGICAL HISTORY : None. ENCOUNTER: Subsequent ACUITY: 1 month PAIN SCALE: 9/10 LOCATION: chest TECHNIQUE: Volumetric scanning of the chest was performed. Using automated exposure control and adjustment of t he mA and/or kV according to patient size, radiation dose was kept as low as reasonably achievable to obtain optimal diagnostic quality images. FINDINGS: LUNGS: Bilateral airspace infiltrates are present, primarily in the posterior lung bases but also nodular fo ci present in the superior segment of the left lower lobe and in the lateral right perihilar region. PLEURAE: Small left effusion. MEDIASTINUM: The heart and great vessels demonstrate no acute abnormality. There is no mediastinal or hilar lymph adenopathy. Coronary calcifications noted. AXILLAE: Within normal limits. No lymphadenopathy. MUSCULOSKELETAL: Within normal limits for patient age. MISCELLANEOUS: See report of CT abdomen pelvis CONCLUSION: Bilateral airspace infiltrates. Curt Bee MD on September 29, 2016 at 20:57 Board Certified Radiologist. This report was verified electronically.
[2016-09-30] VITALS (16 sets, daily range): BP systolic 114–125; BP diastolic 56–67; PULSE 77–139; RESP 15–25; TEMP 97.7–99.1; O2SAT 90–96
--- NOTE | 2016-09-30 00:24 | RADRPT ---
EXAM DATE/TIME: 09/29/2016 23:19 [facility] COMPARISON: No previous studies available for comparison. INDICATIONS : Bilateral leg swelling. MEDICAL HISTORY : Hypertension. Asthma. Abdominal pain. Bladder cancer. Left kidney cancer. Bladder cancer. Acute renal failure. SURGICAL HISTORY : Nephrectomy, left. Bilateral cataract removal. TURBT. Urethral dilation. Bladder cuff. Left foot surg mykel. Total left hip replacement. Ureterectomy. ENCOUNTER: Initial ACUITY: 1 day PAIN SCORE: 3/10 LOCATION: Bilateral legs. TECHNIQUE: Venous ultrasound of the left and right leg was performed from the inguinal ligament to the proximal calf. Real-time, color Doppler and spectral tracing, compression and augmentation techniques were us ed. FINDINGS: RIGHT LEG: There is normal compressibility of the deep venous system from the inguinal region to the proximal ca lf. No echogenic clot is seen in the lumen of the common femoral, femoral, popliteal, and posterior tibial veins. There is a normal response of the venous system to proximal and distal augmentation an d respiration. LEFT LEG: There is normal compressibility of the deep venous system from the inguinal region to the proximal ca lf. No echogenic clot is seen in the lumen of the common femoral, femoral, popliteal, and posterior tibial veins. There is a normal response of the venous system to proximal and distal augmentation an d respiration. CONCLUSION: No evidence of DVT. Josh Burns MD on September 30, 2016 at 0:22 Board Certified Radiologist. This report was verified electronically.
--- NOTE | 2016-09-30 00:32 | RADRPT ---
EXAM DATE/TIME: 09/29/2016 23:35 [facility] COMPARISON: CT ABDOMEN & PELVIS W/O CONTRAST, September 23, 2016, 17:42. CT ABDOMEN & PELVIS W/O CONTRAST, September 29 7, 20:30. US KIDNEY/RENAL/BLADDER, September 22, 2016, 17:07. EXTERNAL COMPARISON : [facility], CT ABDOMEN & PELVIS W & W/O CONTRAST, March 16, 2016 INDICATIONS : Hydronephrosis. MEDICAL HISTORY : Hypertension. Asthma. Abdominal pain. Bladder cancer. Left kidney cancer. Bladder cancer. Acute renal failure. SURGICAL HISTORY : Nephrectomy, left. Bilateral cataract removal. TURBT. Urethral dilation. Bladder cuff. Left foot surg mykel. Total left hip replacement. Ureterectomy. ENCOUNTER: Initial ACUITY: 1 day PAIN SCORE: 3/10 LOCATION: Bilateral flank MEASUREMENTS: RIGHT KIDNEY: 13.5 x 7.2 x 6.6 cm LEFT KIDNEY: Surgically removed. FINDINGS: RIGHT KIDNEY: There continues to be moderate hydronephrosis of the right collecting system. There is a nonobstructi ng stone in the lower pole measuring 9 mm. These findings are not significantly changed compared to t he prior exams. LEFT KIDNEY: Status post nephrectomy. There is a soft tissue density in the renal fossa measuring 9.9 x 6.6 cm. Th ere is a questionable vascularity associated with this density. This has been seen on prior CT scans of the abdomen. BLADDER: Decompressed. Valentine catheter. CONCLUSION: 1. No significant change in the moderate hydronephrosis of the right collecting system. 2. There appears to be a stone in the lower pole not causing obstruction measuring 9 mm. 3. There continues to be a soft tissue density in the left renal fossa not significantly changed comp ared to the prior CT exams. Josh Burns MD on September 30, 2016 at 0:25 Board Certified Radiologist. This report was verified electronically.
[2016-09-30] MEDS: HEPARIN SODIUM - SQ 10,000 UNITS/ML VIAL SQ SCH ×2 (00:47→11:09)
[2016-09-30] MEDS: METOCLOPRAMIDE HCL 10 MG/2 ML VIAL IV PUSH SCH ×3 (03:00→18:39)
[2016-09-30 06:05] LABS: HEMATOCRIT 28.3 % (39.0-51.0); MEAN CELL VOLUME 99.4 FL (80.0-100.0); MEAN CORPUSCULAR HEMOGLOBIN 33.6 PG (27.0-34.0); MEAN CORPUSCULAR HGB CONC 33.8 % (32.0-36.0); PLATELET COUNT 204 TH/MM3 (150-450); RED BLOOD COUNT 2.84 MIL/MM3 (4.50-5.90); RED CELL DISTRIBUTION WIDTH 13.5 % (11.6-17.2); REVIEW FLAG FINAL; WHITE BLOOD COUNT 8.7 TH/MM3 (4.0-11.0)
[2016-09-30 06:11] LABS: BICARBONATE 21.2 MEQ/L (21.0-32.0); MAGNESIUM 2.7 MG/DL (1.5-2.5)
[2016-09-30] MEDS ORDERED: POTASSIUM CHLOR 20 MEQ PREMIX 100 ML IV ONE (08:45)
[2016-09-30] MEDS: METOPROLOL TARTRATE 25 MG TAB PO SCH ×2 (09:00→21:00)
[2016-09-30] MEDS: SODIUM CHLORIDE 0.9% FLUSH 10 ML FLUSH IV FLUSH SCH ×2 (09:00→21:09)
[2016-09-30] MEDS: OXYBUTYNIN CHLORIDE 5 MG TAB PO SCH ×3 (09:05→17:58)
[2016-09-30] MEDS: DILTIAZEM INJ 125 MG in SODIUM CHLORIDE 0.9% INJ 100 ML IV SCH (10:20)
[2016-09-30] MEDS: DOCUSATE SODIUM 100 MG CAP PO SCH ×2 (10:21→21:09)
--- NOTE | 2016-09-30 13:00 | RADRPT ---
EXAM DATE/TIME: 09/30/2016 12:33 [facility] COMPARISON: CHEST SINGLE AP, September 29, 2016, 18:10. INDICATIONS : Shortness of breath. MEDICAL HISTORY : Hypertension. Asthma. Bladder cancer. Left kidney cancer. SURGICAL HISTORY : Nephrectomy, left. ENCOUNTER: Subsequent ACUITY: 2 days PAIN SCORE: 0/10 LOCATION: Bilateral chest FINDINGS: A single view of the chest demonstrates a diminished lung volumes and bibasilar densities. Left jugul ar volumes line and nasogastric tube unchanged.. Osseous structures are intact. CONCLUSION: Bibasilar densities likely atelectasis. Wilfredo Stephenson MD on September 30, 2016 at 12:58 Board Certified Radiologist. This report was verified electronically.
--- NOTE | 2016-09-30 13:15 | HHI.CCPN ---
Subjective Remarks/Hospital Course 81 y/o man underwent uncomplicated left nephrectomy including ureter down to bladder today. Comes back to ICU looking great, breathing comfortably, warm and well perfused. 09/22: Breathing comfortably. Warm, well perfused. Lungs clear. 09/23: Good response to loop diuretic, > 5 liter, cut rate by 50%. New onset a- fib with RVR. Start cardizem for rate control, add amiodarone for conversion. Continue BID sq heparin, will add full anticoagulation if a-fib persists. Check mag, phos, k. 09/24: Back in NSR but increased ventricular ectopy, episodic burst of a-fib. Breathing much improved after bumex diuresis. Creatine rising; will reduce bumex gtt by 50% again today. Urine remains copious. Add low dose beta gage, continue amiodarone drip.Follow K, Mag, Phos closely. 09/25: Creat worsening, Bumex Dcd. Continues to have nausea and vomiting. CT of the abdomen pelvis from 09/23/16 shows left paraumbilical hernia containing a loop of small bowel. At least partial small bowel obstruction. CT also showed severe right hydronephrosis-urology and nephrology aware 09/26: Cr is 4.5 today, SB follow through done pending now. D/W Dr. Cordero- patient is nonoliguric, and at this time does not meet criteria for starting hemodialysis. In case he needs hemodialysis Dr. Cordero will place a nephrostomy tube for decompression 09/27: Elderly male resting in bed, not in any acute distress. NG tube remains to suction. Continues to make urine though BUN/creatinine remains elevated. Being followed by urology/nephrology who will decide regarding nephrostomy placement/hemodialysis if needed. Patient went back into A. fib following discontinuation of amiodarone drip on 09/26. We'll resume amiodarone drip with bolus. 09/28: Resting in bed comfortably. NG tube put out 900 cc in the last 24 hours. Denies any abdominal pain or nausea. Good urine output. BUN and creatinine remain elevated. 09/29: Acutely decompensated respiratory fontaine, with hypoxia. Also in A. fib with RVR with hypotension. Received metoprolol in a.m., no response to digoxin. On my exam patient was tachypneic hypoxemic requiring 100% nonrebreather. Systolic blood pressure was in the high 70s. I placed him on Simba-Synephrine, and have ordered Cardizem infusion, IV Albumin 25 GM x1. All IV fluids discontinued, Bumex 2 mg IV 1 given. Explained to possibility of intubation-patient is not a BiPAP candidate due to small bowel obstruction. 09/30: On nonrebreather facemask O2. O2 sats borderline. Awake and alert, following commands. Denies any abdominal pain currently. Perez not had a BM. Objective Vital Signs Date Time Temp Pulse Resp B/P Pulse Ox O2 Delivery O2 Flow Rate FiO2 09/30/16 12:00 90 09/30/16 08:38 94 Non-Rebreather 13.00 09/30/16 08:00 97.7 20 120/67 09/26/16 08:42 21 Intake and Output 09/29/16 09/29/16 09/30/16 08:00 16:00 00:00 Intake Total 580 ml 570 ml 615 ml Output Total 780 ml 1750 ml 1160 ml Balance -200 ml -1180 ml -545 ml Result Diagram: 09/30/16 0524 09/30/16 0524 Imaging Last Impressions Chest X-Ray 09/27/16 0600 Signed Impressions: Service Date/Time: Tuesday, September 27, 2016 03:05 - CONCLUSION: Hypoinflation with left basilar atelectasis. Shalom Chery Jr., MD Abdomen X-Ray 09/25/16 0000 Signed Impressions: Service Date/Time: Sunday, September 25, 2016 18:35 - CONCLUSION: Moderate diffuse gaseous distention of small bowel Curt Bee MD Abdomen/Pelvis CT 09/23/16 0000 Signed Impressions: Service Date/Time: Friday, September 23, 2016 17:42 - CONCLUSION: 1. There is a 2.3 cm left-sided paraumbilical hernia in the anterior abdominal wall containing a loop of bowel resulting in at least a partial small bowel obstruction. There is also gastric distention. 2. Postoperative recent left nephrectomy with residual fluid at the nephrectomy site and some residual free air within the abdomen as well as subcutaneous air in the left chest and abdominal wall. Drainage catheter left lower quadrant. 3. Severe right-sided hydronephrosis and dilatation of right ureter to just above the bladder. Valentine catheter present in the bladder. [place] Umaña MD Renal Ultrasound 09/22/16 0000 Signed Impressions: Service Date/Time: Thursday, September 22, 2016 17:07 - CONCLUSION: 1. Moderate right hydronephrosis, etiology uncertain. Right ureteral calculus possible. A 7 mm stone is seen at the lower pole that appears to be nonobstructing. 2. Reported left nephrectomy. Large soft tissue structure in the nephrectomy bed. Differential includes residual kidney, shifted spleen and recurrent mass. There is also a large fluid collection medial to the left renal fossa. A CT of the abdomen and pelvis is recommended, preferably with an without intravenous contrast. Curt Tafoya MD Objective Remarks General: Tachypneic, maintaining oxygen saturation 89-91% 100% nonrebreather HEENT: Pallor present, oral Mucosa [place] & Moist Neck: Neck Supple Pulmonary: Breath Sounds Equal, scattered Rhonchi, Decreased Bases Cardiology: Atrial fibrillation S1S2 irreg irregular Gastrointestinal: Soft, Distended. nontender, BS not appreciated. Extremities Exam: Trace Edema Neuro Exam: Alert, Awake, Oriented No FND A/P Assessment and Plan ASSESSMENT Acute hypoxemic respiratory failure Metabolic acidosis Atrial fibrillation with RVR Acute renal failure Status post left nephroureterectomy Right hydronephrosis ileus vs Small bowel obstruction/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 fib Plan: -Placed on 100% NRB. Not a candidate for BiPAP due to small bowel obstruction. Will attempt oh to high flow nasal cannula. -I have explained to the patient and his that patient may need endotracheal intubation if resp status declines further. -Off all IV fluids -Chest x-ray reveals bilateral infiltrates more at the bases. CT chest abdomen pelvis done 09/29 revealed bilateral infiltrates especially in the bases, worsening small bowel distention. -2 Amps of bicarbonate given for metabolic acidosis on 09/29 -On Simba-Synephrine to maintain map above 65 -Cardizem infusion to keep heart rate less than 110 -Patient is non oliguric and the urine out put adequate creatinine 4.41 today -Right hydronephrosis, urology is aware. In case he needs hemodialysis Dr. Cordero will place a nephrostomy tube for decompression -General surgery following for ileus - Dr. Hartmann -Keep NPO again, NG decompression. Reglan 5mg IV Q8hrly to improve GI motility added 09/28 -IV Protonix. Heparin 5000 sq q12 -Monitor BP Hypertension -Off amiodarone gtt D/W BRAID FOLDER, updated at bedside. Condition critical. Worsening respiratory failure. Starting high flow nasal cannula. May require endotracheal intubation. Time spent on critical care excluding procedures 30 minutes Santosh Santana MD September 30, 2016 13:15
[2016-09-30] MEDS: PANTOPRAZOLE SODIUM 40 MG VIAL IV PUSH SCH (13:57)
--- NOTE | 2016-09-30 15:24 | HHI.PR ---
Subjective Subjective Notes The patient is currently on a nonrebreather. He is awake and alert otherwise. He complains of no abdominal pain. He states that he had 2 bowel movements yesterday and has passed a large amount of flatus today, a finding confirmed by the nurses as well as the family. Objective Vitals/I&O Vital Signs Date Time Temp Pulse Resp B/P Pulse Ox O2 Delivery O2 Flow Rate FiO2 09/30/16 14:00 92 09/30/16 12:00 98.4 25 117/61 90 09/30/16 08:38 Non-Rebreather 13.00 09/26/16 08:42 21 Labs Laboratory Tests Test 09/30/16 05:24 White Blood Count 8.7 Red Blood Count 2.84 Hemoglobin 9.6 Hematocrit 28.3 Mean Corpuscular Volume 99.4 Mean Corpuscular Hemoglobin 33.6 Mean Corpuscular Hemoglobin 33.8 Concent Red Cell Distribution Width 13.5 Platelet Count 204 Mean Platelet Volume 8.4 Sodium Level 145 Potassium Level 3.0 Chloride Level 111 Carbon Dioxide Level 21.2 Anion Gap 13 Blood Urea Nitrogen 112 Creatinine 4.41 Estimat Glomerular Filtration 13 Rate Random Glucose 149 Calcium Level 7.0 Phosphorus Level 4.6 Magnesium Level 2.7 Albumin 2.1 Date/Time Procedure Status Source Growth 09/29/16 13:45 Aerobic Blood Culture - Preliminary Resulted Blood Peripheral NO GROWTH IN 1 DAY 09/29/16 13:45 Anaerobic Blood Culture - Preliminary Resulted Blood Peripheral NO GROWTH IN 1 DAY Radiology Last 24 hours Impressions Chest X-Ray 09/30/16 0000 Signed Impressions: Service Date/Time: Friday, September 30, 2016 12:33 - CONCLUSION: Bibasilar densities likely atelectasis. Wilfredo Stephenson MD Last Impressions Chest X-Ray 09/29/16 0000 Signed Impressions: Service Date/Time: Thursday, September 29, 2016 04:36 - CONCLUSION: 1. Stable left lower lung atelectasis. 2. New small infiltrate right upper lung. Josh Burns MD Small Bowel X-Ray 09/26/16 0000 Signed Impressions: Service Date/Time: Monday, September 26, 2016 09:10 - CONCLUSION: Diffuse small bowel distention and probable ileus. Wilfredo Stephenson MD Abdomen X-Ray 5/8/17 0000 Signed Impressions: Service Date/Time: Sunday, September 25, 2016 18:35 - CONCLUSION: Moderate diffuse gaseous distention of small bowel Curt Bee MD Abdomen/Pelvis CT 09/23/16 Signed Impressions: Service Date/Time: Friday, September 23, 2016 17:42 - CONCLUSION: 1. There is a 2.3 cm left-sided paraumbilical hernia in the anterior abdominal wall containing a loop of bowel resulting in at least a partial small bowel obstruction. There is also gastric distention. 2. Postoperative recent left nephrectomy with residual fluid at the nephrectomy site and some residual free air within the abdomen as well as subcutaneous air in the left chest and abdominal wall. Drainage catheter left lower quadrant. 3. Severe right-sided hydronephrosis and dilatation of right ureter to just above the bladder. Valentine catheter present in the bladder. [place] Umaña MD Renal Ultrasound 09/22/16 Signed Impressions: Service Date/Time: Thursday, September 22, 2016 17:07 - CONCLUSION: 1. Moderate right hydronephrosis, etiology uncertain. Right ureteral calculus possible. A 7 mm stone is seen at the lower pole that appears to be nonobstructing. 2. Reported left nephrectomy. Large soft tissue structure in the nephrectomy bed. Differential includes residual kidney, shifted spleen and recurrent mass. There is also a large fluid collection medial to the left renal fossa. A CT of the abdomen and pelvis is recommended, preferably with an without intravenous contrast. Curt Tafoya MD Cardiovascular: Regular Lungs: Rhonchi, Other Abdomen: Non-distended, Non-tender, BS normal A/P Assessment and Plan Impression: Patient with multiple medical issues including recent A. fib with RVR, currently being weaned off a Cardizem drip. He also has bilateral lateral infiltrates/atelectasis with a left pleural effusion noted as well. He is status post left nephrectomy. Recent CT scan shows what was thought to be a possible worsening small bowel obstruction with dilated proximal bowel and apparently collapsed distal bowel. In my own review of the CT scan there is a fair amount of air in the colon, more consistent with an ileus. All these findings are consistent with an ileus, which I would favor over small bowel obstruction. Plan: it would be my recommendation to at least clamp the nasogastric tube and see how he tolerates it depending on his pulmonary status. The patient is not a surgical candidate at this time, nor do I believe he requires surgical intervention. Pedro Yin MD September 30, 2016 15:24
--- NOTE | 2016-09-30 15:51 | HHI.PR ---
Subjective Patient symptoms today POD#9 Left hand assist lap Nephroureterectomy -CT scan did not identify any evidence of PE. Significant ileus noted, does not appear to be obstruction. NGT in place. Afib improved. +Flatus, no BM Objective Vital Signs Vital Signs Date Time Temp Pulse Resp B/P Pulse Ox O2 Delivery O2 Flow Rate FiO2 09/30/16 14:00 92 09/30/16 12:00 90 09/30/16 12:00 98.4 88 25 117/61 90 09/30/16 10:00 78 09/30/16 08:38 94 Non-Rebreather 13.00 09/30/16 08:00 97.7 90 20 120/67 93 09/30/16 08:00 90 09/30/16 07:00 96 Partial Non-Rebreather 15.00 09/30/16 06:00 89 09/30/16 04:00 85 09/30/16 04:00 98.9 85 24 114/56 96 09/30/16 02:00 77 09/30/16 00:00 77 09/30/16 00:00 99.1 78 25 114/56 96 09/29/16 22:04 20 09/29/16 22:00 81 09/29/16 20:00 99.5 112 24 113/58 96 09/29/16 20:00 81 09/29/16 19:00 97 Partial Non-Rebreather 15.00 09/29/16 18:00 84 09/29/16 16:02 83 09/29/16 16:00 98.4 83 29 105/55 95 Intake & Output 09/30/16 09/30/16 06:59 18:59 Intake Total 885 ml 552 ml Output Total 2410 ml 1430 ml Balance -1525 ml -878 ml Intake Oral 100 ml IV Total 885 ml 452 ml Output Urine Total 1850 ml 850 ml Gastric Drainage Total 350 ml 550 ml Drainage Total 210 ml 30 ml # Bowel Movements 0 0 Result Diagram: 09/30/1624 09/30/16 05 Imaging Last 24 hours Impressions Chest X-Ray 09/30/16 0000 Signed Impressions: Service Date/Time: Friday, September 30, 2016 12:33 - CONCLUSION: Bibasilar densities likely atelectasis. Wilfredo Stephenson MD Objective Remarks NAD, AAOx3 Resp mildly Labored with nonrebreather mask Ab S; distended; appropriately tender NGT in place with dark brown output Incision c/d/i, cisco in place ANN-MARIE drain clear fluid, serous Valentine in place, clear, yellow Ab with reducible umbilical hernia Medications and IVs Current Medications Medications (Trade) Dose Ordered Sig/Néstor Route Start Time Stop Time Status Last Admin (NS Flush) 2 ml UNSCH PRN IV FLUSH 09/21/16 12:45 (NS Flush) 2 ml BID IV FLUSH 09/21/16 21:00 09/30/16 09:00 (Percocet 5-325 Mg) 1 tab Q4H PRN PO 09/21/16 12:45 09/25/16 08:07 (Percocet 5-325 Mg) 2 tab Q4H PRN PO 09/21/16 12:45 (Dilaudid Pf Inj) 2 mg Q2H PRN IV 09/21/16 12:45 09/25/16 09:48 (Ditropan) 5 mg TID PO 09/21/16 13:00 09/30/16 13:04 (Zofran Inj) 4 mg Q6H PRN IV 09/21/16 12:45 09/27/16 15:43 (Heparin Inj) 5,000 units Q12H SQ 09/22/16 12:00 09/30/16 11:09 (Trandate Inj) 20 mg Q3H PRN IV PUSH 09/21/16 17:15 09/29/16 04:13 (Apresoline Inj) 10 mg Q2H PRN IV PUSH 09/21/16 17:15 09/24/16 18:23 Docusate Sodium 100 mg 100 mg BID PO 09/23/16 09:00 09/30/16 10:21 (Cardizem Inj/NS Inj) 125 ml @ 0 mls/hr TITRATE IV 09/23/16 08:45 09/30/16 10:20 (Protonix Inj) 40 mg Q24H IV PUSH 09/24/16 14:00 09/30/16 13:57 (Dilaudid Pf Inj) 0.2 mg Q4H PRN IV PUSH 09/24/16 13:00 09/29/16 21:34 (Norvasc) 10 mg DAILY PO 09/24/16 13:00 09/28/16 08:49 (Lopressor) 25 mg Q12HR PO 09/24/16 13:00 09/29/16 08:21 Haloperidol Lactate 2 mg 2 mg Q6H PRN IV PUSH 09/26/16 21:15 09/27/16 00:03 (Cordarone Inj/ D5W (Craig) Inj) 250 ml @ 0 mls/hr CONTINUOUS IV 09/27/16 09:15 (Dulcolax Supp) 10 mg DAILY PRN RECTAL 09/27/16 19:30 Metoclopramide HCl 5 mg 5 mg Q8H IV PUSH 09/28/16 11:00 09/30/16 11:09 (Neosynephrine Inj/D5W 500 ml Inj) 500 ml @ 0 mls/hr TITRATE IV 09/29/16 11:00 09/29/16 11:02 Assessment and Plan Assessment and Plan POD #9 Left hand assist lap nephroureterectomy -Continue pain control -Hgb stable 9.6 today -Afib improved with Cardizem -Cr stable today at 4.41 -CT chest with no obvious PE. Bilateral LE dopplers are negative -CT ab shows significant ileus, however does not appear to be obstruction -NGT in place; +flatus -Will discuss with care teams options for nutrition, including TPN -Continue Hep SQ, ambulation; PT/OT -Would like to remove ANN-MARIE drain. Will check ANN-MARIE creatinine -Valentine catheter to remain in place for 2 weeks post-op. -Appreciate all teams involved in patient care Boaz Cordero MD September 30, 2016 15:51
[2016-09-30] MEDS ORDERED: DEXTROSE 50% IN WATER 50 ML VIAL(D50) IV PRN (16:45)
[2016-09-30] MEDS ORDERED: GLUCAGON 1 MG/ML VIAL IM/SQ PRN (16:45)
[2016-09-30 17:04] LABS: BLOOD GAS BASE EXCESS -2.1 mmol/L (-2-2); BLOOD GAS CARBOXYHEMOGLOBIN 0.9 % (0-4); BLOOD GAS HCO3 21 mmol/L (22-26); BLOOD GAS METHEMOGLOBIN 1.5 % (0-2); BLOOD GAS O2 HGB SATURATION 88 % (90-100); BLOOD GAS OXYGEN CONTENT 15.4 Vol % (12.0-20.0); BLOOD GAS PCO2 30 mmHg (38-42); BLOOD GAS PO2 61 mmHg (61-120); BLOOD GAS TOTAL HGB 12.4 G/DL (12.0-16.0); CRITICAL VALUE YES; DRAW SITE LT RADIAL; FIO2 100 %; LITER FLOW 15 L/M; OXYGEN DEVICE NONREBREATHER; TEMP CORR TO 98.6
[2016-09-30 17:05] LABS: NUMBER OF ARTERIAL PUNCTURES 1; STAT NO; ULNAR PULSE PRESENT
--- NOTE | 2016-09-30 17:10 | HHI.NPPN ---
Subjective History of Present Illness This patient is an 81-year-old male referred for evaluation and management of acute renal insufficiency. The patient has a somewhat complicated urological history. Patient was recently seen in the office prior to this admission.According to the records I reviewed there is a history of bladder cancer with resection back in 2012. Patient was subsequently diagnosed as having a bilateral hydronephrosis seen on CT urogram as part of an evaluation for microscopic hematuria. 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 Patient subsequently underwent cystoscopy and bilateral retrograde pyelogram and right ureteroscopy with biopsy of her right distal tumor and bilateral ureteral stent placement April 06, 2016. There was mention of bilateral ureteral laser tumor ablation. The right distal tumor was said to be low grade however the left proximal tumor required extensive ablation and pathology returned as a high grade in the left proximal ureter.The left proximal ureteral lesion was described as high-grade and more extensive and sessile in appearance with a biopsy showing invasion to the sub-2 connective tissue with the positive cytology. It was felt that the patient would benefit from a left nephroureterectomy however the patient was said to be hesitant regarding this option given the severity of his renal insufficiency and other comorbidities. In addition the patient has been using Mobic for chronic hip pain on a daily basis for about 2 years now prior to our evaluation.. Status post left nephroureterectomy 09/21/16. prior to surgery an outpatient nucleogram indicated differential kidney function 10% on the left and 90% on the right. Apparently another nephrology service was consulted and a bumetanide drip was started postop and continued over weekend with associated brisk diuresis and worsening azotemia.Patient developed progressive azotemia. He was being followed by another tack puller at that time. When it was learned that I had established with this patient in the office prior to this admission I was contacted by Dr. Rinaldi to take over care. Interval History Patient is resting comfortably. Indicated that he is feeling better today. Nasogastric tube still in place. Review of Systems Respiratory Lungs: SOB Objective Data Data 09/29/16 09/30/16 19:00 07:00 Intake Total 570 ml 885 ml Output Total 1750 ml 2410 ml Balance -1180 ml -1525 ml Intake Oral 180 ml IV Total 390 ml 885 ml Output Urine Total 1200 ml 1850 ml Gastric Drainage Total 500 ml 350 ml Drainage Total 50 ml 210 ml # Bowel Movements 1 0 Vital Signs Date Time Temp Pulse Resp B/P Pulse Ox O2 Delivery O2 Flow Rate FiO2 09/30/16 14:00 92 09/30/16 12:00 90 09/30/16 12:00 98.4 88 25 117/61 90 09/30/16 10:00 78 09/30/16 08:38 94 Non-Rebreather 13.00 09/30/16 08:00 97.7 90 20 120/67 93 09/30/16 08:00 90 09/30/16 07:00 96 Partial Non-Rebreather 15.00 09/30/16 06:00 89 09/30/16 04:00 85 09/30/16 04:00 98.9 85 24 114/56 96 09/30/16 02:00 77 09/30/16 00:00 77 09/30/16 00:00 99.1 78 25 114/56 96 09/29/16 22:04 20 09/29/16 22:00 81 09/29/16 20:00 99.5 112 24 113/58 96 09/29/16 20:00 81 09/29/16 19:00 97 Partial Non-Rebreather 15.00 09/29/16 18:00 84 -: 09/30/16 0524 09/30/16 0524 Physical Exam Eyes Eye Exam: Pupils Equal Throat Throat Exam: Oral Mucosa Champion & Moist Neck Neck Exam: Neck Supple Pulmonary Resp Exam: Clear Bilaterally, Breath Sounds Equal, Decreased Bases Cardiology CV Exam: Regular Gastrointestinal/Abdomen GI Exam: Soft, Distended Integumentary Skin Exam: Clear, Warm Extremeties Extremities Exam: No Edema Neurologic Neuro Exam: Alert, Awake Psychiatric Psych Exam: Appropriate Responses Assessment/Plan Discussed Condition With: Son Assessment Summary: YOLA/Acute Renal Failure, CKD Stage III Problem List: (1) Acute renal failure Plan: Patient's creatinine level is slightly improved today. No indication to initiate dialysis today in view of the above. Repeat renal panel tomorrow and monitor urinary output. Very good urine output overnight but also high NG fluid losses. Patient will require maintenance IV and it is noted critical care is considering TPN. Urology has mentioned nephrostomy tube if dialysis was being considered. CT scan is indicating moderate hydronephrosis of solitary kidney despite good urine output. s (2) Hypertension Plan: BP meds held Now on Simba for hypotension Cardizem being started by CC for HR control (3) History of nephroureterectomy Plan: this admission on left side for malignancy Jason Landry MD September 30, 2016 17:10
[2016-09-30 18:00] LABS: AUTOMATED NEUTROPHIL # 7.4 TH/MM3 (1.8-7.7); BASOPHIL % 0.2 % (0.0-2.0); HEMATOCRIT 30.6 % (39.0-51.0); LYMPH % 2.5 % (9.0-44.0); LYMPHOCYTE # 0.2 TH/MM3 (1.0-4.8); MEAN CELL VOLUME 97.6 FL (80.0-100.0); MEAN CORPUSCULAR HEMOGLOBIN 32.8 PG (27.0-34.0); MEAN CORPUSCULAR HGB CONC 33.6 % (32.0-36.0); MONO % 9.2 % (0.0-8.0); NEUT % 88.1 % (16.0-70.0); PLATELET COUNT 202 TH/MM3 (150-450); RED BLOOD COUNT 3.14 MIL/MM3 (4.50-5.90); RED CELL DISTRIBUTION WIDTH 13.7 % (11.6-17.2); WHITE BLOOD COUNT 8.3 TH/MM3 (4.0-11.0)
[2016-09-30] MEDS: INSULIN ASPART SUPPLEMENTAL SCALE SQ SCH (18:00)
[2016-09-30 18:02] LABS: HEMO FLAGS AUTO DIFF
[2016-09-30 18:08] LABS: INTERNATIONAL NORMALIZED RATIO 1.8 RATIO; PROTHROMBIN TIME - PATIENT 20.7 SEC (9.8-11.6)
[2016-09-30 18:34] LABS: BANDS 25 % (0-6); DOHLE BODIES PRESENT (NONE SEEN); METAMYELOCYTES 1 % (0-1); NEUTROPHIL # MANUAL DIFF 7.8 TH/MM3 (1.8-7.7); PLATELET ESTIMATE SMEAR NORMAL (NORMAL); PLATELET MORPHOLOGY NORMAL (NORMAL); POLYS (SEG NEUTROPHILS) 68 % (16-70); SCAN/DIFF FINAL DIFF MANUAL; TOXIC GRANULATION 1+ (NORMAL); WBC DIFF SAMPLE 100
[2016-09-30 18:37] LABS: ALKALINE PHOSPHATASE 78 U/L (45-117); ALT (GPT) 14 U/L (12-78); ANION GAP 13 MEQ/L (5-15); AST (GOT) 22 U/L (15-37); BLOOD UREA NITROGEN 120 MG/DL (7-18); CHLORIDE 108 MEQ/L (98-107); GLOMERULAR FILTRATION RATE 12 ML/MIN (>89); POTASSIUM 3.4 MEQ/L (3.5-5.1); SODIUM (NA) 145 MEQ/L (136-145); TOTAL BILIRUBIN ADULT 2.5 MG/DL (0.2-1.0)
[2016-09-30] MEDS ORDERED: ETOMIDATE 20 MG/10 ML VIAL ONE (19:47)
[2016-09-30] MEDS ORDERED: SUCCINYLCHOLINE CHLORIDE 200 MG/10 ML VIAL ONE (19:48)
--- NOTE | 2016-09-30 20:01 | PD.PROCEDR ---
Procedure Note Procedure Endotracheal Intubation A time-out was completed verifying correct patient, procedure, site, positioning , and special equipment if applicable. The patient was placed in a flat position. Sedation was obtained using Etomidate 20mg. The patient was easily ventilated using an ambu bag. The [employer]/ MAC 4 BLADE was used and inserted into the oropharynx at which time there was a Grade 1 view of the vocal cords. A 8-divehi endotracheal tube was inserted and visualized going through the vocal cords. The stylette was removed. Colorimetric change was visualized on the CO2 meter. Breath sounds were heard in both lung pisano equally. The endotracheal tube was placed at 23 cm, measured at the teeth. A chest x-ray was ordered to assess for pneumothorax and verify endotrachealtube placement. Estimated Blood Loss: 0 The patient tolerated the procedure well and there were no complications. Stanton William MD September 30, 2016 20:01
[2016-09-30] MEDS ORDERED: MIDAZOLAM HCL 5 MG/ML VIAL (1 ML) ONE (20:13)
[2016-09-30] MEDS ORDERED: fentaNYL DRIP 250 ML IV SCH (20:15)
[2016-09-30] MEDS ORDERED: MIDAZOLAM 100 MG/ML INJ 100 ML IV SCH (20:15)
[2016-09-30] MEDS ORDERED: MIDAZOLAM HCL 2 MG/2 ML VIAL IV ONE (20:30)
--- NOTE | 2016-09-30 20:45 | RADRPT ---
EXAM DATE/TIME: 09/30/2016 20:17 [facility] COMPARISON: CHEST SINGLE AP, September 30, 2016, 12:33. INDICATIONS : Post intubation. MEDICAL HISTORY : None. SURGICAL HISTORY : None. Left nephroureterectomy. ENCOUNTER: Subsequent ACUITY: 2 days PAIN SCORE: Non-responsive. LOCATION: Bilateral chest FINDINGS: An endotracheal tube has its tip 4 cm above the kadi. A left internal jugular central line has its tip in the superior vena cava. A nasogastric tube has its tip below the diaphragm. Bibasilar patch iness (left slightly worse than right) is noted consistent with probable pneumonia. Clinical correla tion is recommended. CONCLUSION: 1. Bibasilar patchiness (left worse than right) consistent with probable mild pneumonia. Clinical c orrelation is recommended. 2. Multiple tubes and lines are stable. 3. Endotracheal tube in good position 4 cm above the kadi. Eric Manzanares MD on September 30, 2016 at 20:37 Board Certified Radiologist. This report was verified electronically.
[2016-09-30] MEDS: FAT EMULSION 20% INJ 250 ML (Daily over 8 hours) IV-CENTRAL SCH (21:10)
[2016-09-30] MEDS: CLINIMIX 4.25/25 (Cust.Renal Central) 2000 mL- >42 mls/hr IV-CENTRAL SCH ×8 (21:11)
[2016-09-30 21:27] LABS: BLOOD GAS BASE EXCESS -3.4 mmol/L (-2-2); BLOOD GAS CARBOXYHEMOGLOBIN 0.5 % (0-4); BLOOD GAS HCO3 21 mmol/L (22-26); BLOOD GAS METHEMOGLOBIN 1.4 % (0-2); BLOOD GAS O2 HGB SATURATION 94 % (90-100); BLOOD GAS OXYGEN CONTENT 18.4 Vol % (12.0-20.0); BLOOD GAS PCO2 38 mmHg (38-42); BLOOD GAS PO2 97 mmHg (61-120); BLOOD GAS TOTAL HGB 13.8 G/DL (12.0-16.0); CRITICAL VALUE NO; OXYGEN DEVICE VENTILATOR; TEMP CORR TO 98.6
[2016-09-30 21:28] LABS: DRAW SITE RT RADIAL; FIO2 100 %; NUMBER OF ARTERIAL PUNCTURES 1; STAT NO; ULNAR PULSE PRESENT
[2016-09-30] MEDS ORDERED: RESP: ALBUTEROL 2.5 MG/IPRATROPIUM 0.5 MG NEB (PRN) NEB (23:00)
[2016-09-30] MEDS: RESP: ALBUTEROL 2.5 MG/IPRATROPIUM 0.5 MG NEB (SCH) NEB (23:48)
[2016-10-01] VITALS (19 sets, daily range): BP systolic 94–129; BP diastolic 53–59; PULSE 88–109; RESP 14–16; TEMP 98.6–99.1; O2SAT 91–98
[2016-10-01] MEDS: INSULIN ASPART SUPPLEMENTAL SCALE SQ SCH ×4 (01:19→18:16)
[2016-10-01] MEDS: HEPARIN SODIUM - SQ 10,000 UNITS/ML VIAL SQ SCH ×3 (01:20→23:44)
[2016-10-01] MEDS ORDERED: SODIUM CHLOR 0.9% 1000 ML INJ 1,000 ML IV ONE (03:15)
[2016-10-01] MEDS: RESP: ALBUTEROL 2.5 MG/IPRATROPIUM 0.5 MG NEB (SCH) NEB ×6 (03:20→23:17)
[2016-10-01] MEDS: DILTIAZEM INJ 125 MG in SODIUM CHLORIDE 0.9% INJ 100 ML IV SCH (04:21)
[2016-10-01] MEDS: PHENYLEPHRINE 40 MG/D5W 496 ML ADMIX IV SCH ×2 (04:22)
[2016-10-01] MEDS: METOCLOPRAMIDE HCL 10 MG/2 ML VIAL IV PUSH SCH ×3 (05:08→18:12)
[2016-10-01 05:46] LABS: BICARBONATE 23.5 MEQ/L (21.0-32.0); MAGNESIUM 3.1 MG/DL (1.5-2.5); POTASSIUM 3.3 MEQ/L (3.5-5.1)
[2016-10-01] MEDS: OXYBUTYNIN CHLORIDE 5 MG TAB PO SCH ×3 (09:00→17:54)
[2016-10-01] MEDS: SODIUM CHLORIDE 0.9% FLUSH 10 ML FLUSH IV FLUSH SCH ×2 (09:00→20:26)
[2016-10-01] MEDS: METOPROLOL TARTRATE 25 MG TAB PO SCH ×2 (09:00→21:00)
[2016-10-01] MEDS: DOCUSATE SODIUM 100 MG CAP PO SCH ×2 (09:00→20:26)
[2016-10-01] MEDS ORDERED: GLUCAGON 1 MG/ML VIAL IM/SQ PRN (14:45)
[2016-10-01] MEDS ORDERED: DEXTROSE 50% IN WATER 50 ML VIAL(D50) IV PRN (14:45)
--- NOTE | 2016-10-01 14:57 | HHI.CCPN ---
Subjective Remarks/Hospital Course 81 y/o man underwent uncomplicated left nephrectomy including ureter down to bladder today. Comes back to ICU looking great, breathing comfortably, warm and well perfused. 09/22: Breathing comfortably. Warm, well perfused. Lungs clear. 09/23: Good response to loop diuretic, > 5 liter, cut rate by 50%. New onset a- fib with RVR. Start cardizem for rate control, add amiodarone for conversion. Continue BID sq heparin, will add full anticoagulation if a-fib persists. Check mag, phos, k. 09/24: Back in NSR but increased ventricular ectopy, episodic burst of a-fib. Breathing much improved after bumex diuresis. Creatine rising; will reduce bumex gtt by 50% again today. Urine remains copious. Add low dose beta gage, continue amiodarone drip.Follow K, Mag, Phos closely. 09/25: Creat worsening, Bumex Dcd. Continues to have nausea and vomiting. CT of the abdomen pelvis from 09/23/16 shows left paraumbilical hernia containing a loop of small bowel. At least partial small bowel obstruction. CT also showed severe right hydronephrosis-urology and nephrology aware 09/26: Cr is 4.5 today, SB follow through done pending now. D/W Dr. Cordero- patient is nonoliguric, and at this time does not meet criteria for starting hemodialysis. In case he needs hemodialysis Dr. Cordero will place a nephrostomy tube for decompression 09/27: Elderly male resting in bed, not in any acute distress. NG tube remains to suction. Continues to make urine though BUN/creatinine remains elevated. Being followed by urology/nephrology who will decide regarding nephrostomy placement/hemodialysis if needed. Patient went back into A. fib following discontinuation of amiodarone drip on 09/26. We'll resume amiodarone drip with bolus. 09/28: Resting in bed comfortably. NG tube put out 900 cc in the last 24 hours. Denies any abdominal pain or nausea. Good urine output. BUN and creatinine remain elevated. 09/29: Acutely decompensated respiratory fontaine, with hypoxia. Also in A. fib with RVR with hypotension. Received metoprolol in a.m., no response to digoxin. On my exam patient was tachypneic hypoxemic requiring 100% nonrebreather. Systolic blood pressure was in the high 70s. I placed him on Simba-Synephrine, and have ordered Cardizem infusion, IV Albumin 25 GM x1. All IV fluids discontinued, Bumex 2 mg IV 1 given. Explained to possibility of intubation-patient is not a BiPAP candidate due to small bowel obstruction. 09/30: On nonrebreather facemask O2. O2 sats borderline. Awake and alert, following commands. Denies any abdominal pain currently. Has not had a BM. 10/01: Intubated on 09/30 for worsening respiratory status. Currently sedated, orally intubated on mechanical ventilation. Started on TPN last night. Objective Vital Signs Date Time Temp Pulse Resp B/P Pulse Ox O2 Delivery O2 Flow Rate FiO2 10/01/16 14:00 94 10/01/16 12:00 100 10/01/16 12:00 98.8 16 109/54 95 10/01/16 07:00 Mechanical Ventilator 09/30/16 19:00 15.00 Intake and Output 09/30/16 09/30/16 10/01/16 08:00 16:00 00:00 Intake Total 270 ml 552 ml 171 ml Output Total 1250 ml 1430 ml 410 ml Balance -980 ml -878 ml -239 ml Result Diagram: 09/30/16 1745 10/01/16 0500 Other Results Laboratory Tests Test 09/30/16 09/30/16 10/01/16 17:45 21:15 05:00 White Blood Count 8.3 TH/MM3 Red Blood Count 3.14 MIL/MM3 Hemoglobin 10.3 GM/DL Hematocrit 30.6 % Mean Corpuscular Volume 97.6 FL Mean Corpuscular Hemoglobin 32.8 PG Mean Corpuscular Hemoglobin 33.6 % Concent Red Cell Distribution Width 13.7 % Platelet Count 202 TH/MM3 Mean Platelet Volume 8.7 FL Neutrophils (%) (Auto) 88.1 % Lymphocytes (%) (Auto) 2.5 % Monocytes (%) (Auto) 9.2 % Eosinophils (%) (Auto) 0.0 % Basophils (%) (Auto) 0.2 % Neutrophils # (Auto) 7.4 TH/MM3 Lymphocytes # (Auto) 0.2 TH/MM3 Monocytes # (Auto) 0.8 TH/MM3 Eosinophils # (Auto) 0.0 TH/MM3 Basophils # (Auto) 0.0 TH/MM3 CBC Comment AUTO DIFF Differential Total Cells 100 Counted Neutrophils % (Manual) 68 % Band Neutrophils % 25 % Lymphocytes % 3 % Monocytes % 3 % Neutrophils # (Manual) 7.8 TH/MM3 Metamyelocytes 1 % Differential Comment FINAL DIFF MANUAL Toxic Granulation 1+ Dohle Bodies PRESENT Platelet Estimate NORMAL Platelet Morphology Comment NORMAL Red Cell Morphology Comment NORMAL Prothrombin Time 20.7 SEC Prothromb Time International 1.8 RATIO Ratio Sodium Level 145 MEQ/L 143 MEQ/L Potassium Level 3.4 MEQ/L 3.3 MEQ/L Chloride Level 108 MEQ/L 109 MEQ/L Carbon Dioxide Level 24.0 MEQ/L 23.5 MEQ/L Anion Gap 13 MEQ/L 11 MEQ/L Blood Urea Nitrogen 120 MG/DL 128 MG/DL Creatinine 4.77 MG/DL 5.12 MG/DL Estimat Glomerular Filtration 12 ML/MIN 11 ML/MIN Rate Random Glucose 125 MG/DL 280 MG/DL Calcium Level 8.1 MG/DL 7.7 MG/DL Total Bilirubin 2.5 MG/DL Aspartate Amino Transf 22 U/L (AST/SGOT) Alanine Aminotransferase 14 U/L (ALT/SGPT) Alkaline Phosphatase 78 U/L Total Protein 6.4 GM/DL Albumin 2.4 GM/DL Triglycerides Level 467 MG/DL Blood Gas Puncture Site RT RADIAL Blood Gas Patient Temperature 98.6 Blood Gas HCO3 21 mmol/L Blood Gas Base Excess -3.4 mmol/L Blood Gas Oxygen Saturation 94 % Arterial Blood pH 7.36 Arterial Blood Partial 38 mmHg Pressure CO2 Arterial Blood Partial 97 mmHg Pressure O2 Arterial Blood Oxygen Content 18.4 Vol % Arterial Blood 0.5 % Carboxyhemoglobin Arterial Blood Methemoglobin 1.4 % Blood Gas Hemoglobin 13.8 G/DL Oxygen Delivery Device VENTILATOR Blood Gas Ventilator Setting Blood Gas Inspired Oxygen 100 % Phosphorus Level 4.0 MG/DL Magnesium Level 3.1 MG/DL Imaging Last 48 hours Impressions Chest X-Ray 09/30/16 0000 Signed Impressions: Service Date/Time: Friday, September 30, 2016 20:17 - CONCLUSION: 1. Bibasilar patchiness (left worse than right) consistent with probable mild pneumonia. Clinical correlation is recommended. 2. Multiple tubes and lines are stable. 3. Endotracheal tube in good position 4 cm above the kadi. Eric Manzanares MD Chest X-Ray 09/30/16 0000 Signed Impressions: Service Date/Time: Friday, September 30, 2016 12:33 - CONCLUSION: Bibasilar densities likely atelectasis. Wilfredo Stephenson MD Last Impressions Chest X-Ray 09/27/16 0600 Signed Impressions: Service Date/Time: Tuesday, September 27, 2016 03:05 - CONCLUSION: Hypoinflation with left basilar atelectasis. Shalom Chery Jr., MD Abdomen X-Ray 09/25/16 0000 Signed Impressions: Service Date/Time: Sunday, September 25, 2016 18:35 - CONCLUSION: Moderate diffuse gaseous distention of small bowel Curt Bee MD Abdomen/Pelvis CT 09/23/16 0000 Signed Impressions: Service Date/Time: Friday, September 23, 2016 17:42 - CONCLUSION: 1. There is a 2.3 cm left-sided paraumbilical hernia in the anterior abdominal wall containing a loop of bowel resulting in at least a partial small bowel obstruction. There is also gastric distention. 2. Postoperative recent left nephrectomy with residual fluid at the nephrectomy site and some residual free air within the abdomen as well as subcutaneous air in the left chest and abdominal wall. Drainage catheter left lower quadrant. 3. Severe right-sided hydronephrosis and dilatation of right ureter to just above the bladder. Valentine catheter present in the bladder. Berlin Umaña MD Renal Ultrasound 09/22/16 0000 Signed Impressions: Service Date/Time: Thursday, September 22, 2016 17:07 - CONCLUSION: 1. Moderate right hydronephrosis, etiology uncertain. Right ureteral calculus possible. A 7 mm stone is seen at the lower pole that appears to be nonobstructing. 2. Reported left nephrectomy. Large soft tissue structure in the nephrectomy bed. Differential includes residual kidney, shifted spleen and recurrent mass. There is also a large fluid collection medial to the left renal fossa. A CT of the abdomen and pelvis is recommended, preferably with an without intravenous contrast. Curt Tafyoa MD Objective Remarks HEENT/ Neuro: Sedated, orally intubated, Pallor present, no icterus, tongue/ mucosa moist Neck: No JVD Chest/Pulm: on mech vent, good air entry bilaterally, scattered rhonchi, no wheezing or crackles CVS: S1-S2 irregularly irregular, no murmur GI/abdomen: soft, nontender, bowel sounds sluggish Extremities: warm bilaterally, no edema Urinary Catheter: Yes Assessment to: Continue A/P Assessment and Plan ASSESSMENT Acute respiratory failure on mech ventilation Metabolic acidosis Atrial fibrillation with RVR Acute renal failure Status post left nephroureterectomy Right hydronephrosis ileus vs Small bowel obstruction/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 fib Bilateral infiltrates with Bandemia. Possible pneumonia Plan: Neuro: Sedation with propofol, avoid fentanyl in view of ileus. Daily sedation vacation. Follow neuro status Cardiovascular: Cardizem drip as needed for rate control for A. fib. We'll use Simba-Synephrine/low-dose vasopressin if needed for pressor support. Pulmonary: Continue mechanical ventilation, vent bundle, bronchodilators as needed. Sputum sent for Gram stain and cultures. Daily C Pap trials starting tomorrow. GI/liver: Continue NG suction. Continues to have ileus being followed by general surgery. Started on TPN 09/30 to maintain nutritional status. Continue Reglan to improve GI motility. Avoid narcotics. -Chest x-ray reveals bilateral infiltrates more at the bases. CT chest abdomen pelvis done 09/29 revealed bilateral infiltrates especially in the bases, worsening small bowel distention. Renal/: Status post left nephroureterectomy. Right hydronephrosis, urology is aware. In case he needs hemodialysis Dr. Cordero will place a nephrostomy tube for decompression. Strict intake output, monitor and replete electro lites, follow BUN/creatinine. Nephrology following-Dr. Landry. ID: In view of worsening respiratory status and bandemia, we will initiate empiric antibiotic coverage with IV cefepime and Flagyl. Blood cultures sent on 09/29 are negative so far. Will check sputum Gram stain and cultures as well as a UA and urine cultures if indicated. Endocrine: Increased from medium to high dose sliding scale insulin in view of hyperglycemia following initiation of TPN. Added Levemir 10 units subcutaneously every 12 hourly on 10/01 Heme: Follow CBC Prophylaxis: Protonix/heparin/SCDs Condition critical. Worsening respiratory failure requiring intubation and mechanical ventilation. Time spent on critical care excluding procedures : 35 minutes Santosh Santana MD October 01, 2016 14:57
[2016-10-01] MEDS: PANTOPRAZOLE SODIUM 40 MG VIAL IV PUSH SCH (15:54)
[2016-10-01] MEDS: HYDROmorphone HCL PF 2 MG/ML VIAL IV PRN (15:55)
[2016-10-01] MEDS: metroNIDAZOLE 500 MG INJ 100 ML IV SCH ×2 (15:55→23:43)
[2016-10-01] MEDS: CEFEPIME INJ 1,000 MG in SODIUM CHLORIDE 0.9% INJ 100 ML IV SCH (15:55)
[2016-10-01] MEDS: INSULIN DETEMIR 100 UNITS/ML VIAL SQ SCH ×2 (15:58→23:43)
[2016-10-01] MEDS ORDERED: POTASSIUM CHLOR 10 MEQ PREMIX 100 ML IV ONE (16:00)
--- NOTE | 2016-10-01 16:02 | HHI.NPPN ---
Subjective History of Present Illness This patient is an 81-year-old male referred for evaluation and management of acute renal insufficiency. The patient has a somewhat complicated urological history. Patient was recently seen in the office prior to this admission.According to the records I reviewed there is a history of bladder cancer with resection back in 2012. Patient was subsequently diagnosed as having a bilateral hydronephrosis seen on CT urogram as part of an evaluation for microscopic hematuria. 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 Patient subsequently underwent cystoscopy and bilateral retrograde pyelogram and right ureteroscopy with biopsy of her right distal tumor and bilateral ureteral stent placement April 06, 2016. There was mention of bilateral ureteral laser tumor ablation. The right distal tumor was said to be low grade however the left proximal tumor required extensive ablation and pathology returned as a high grade in the left proximal ureter.The left proximal ureteral lesion was described as high-grade and more extensive and sessile in appearance with a biopsy showing invasion to the sub-2 connective tissue with the positive cytology. It was felt that the patient would benefit from a left nephroureterectomy however the patient was said to be hesitant regarding this option given the severity of his renal insufficiency and other comorbidities. In addition the patient has been using Mobic for chronic hip pain on a daily basis for about 2 years now prior to our evaluation.. Status post left nephroureterectomy 09/21/16. prior to surgery an outpatient nucleogram indicated differential kidney function 10% on the left and 90% on the right. Apparently another nephrology service was consulted and a bumetanide drip was started postop and continued over weekend with associated brisk diuresis and worsening azotemia.Patient developed progressive azotemia. He was being followed by another flower stripper at that time. When it was learned that I had established with this patient in the office prior to this admission I was contacted by Dr. Rinaldi to take over care. Interval History Events overnight noted. Patient now intubated back on ventilator. Review of Systems Respiratory Lungs: SOB Objective Data Data 09/30/16 10/01/16 19:00 07:00 Intake Total 552 ml 2651 ml Output Total 1430 ml 615 ml Balance -878 ml 2036 ml Intake Oral 100 ml IV Total 452 ml 1706 ml TPN/PPN 695 ml Lipid 250 ml Output Urine Total 850 ml 500 ml Gastric Drainage Total 550 ml 100 ml Drainage Total 30 ml 15 ml # Bowel Movements 0 0 Vital Signs Date Time Temp Pulse Resp B/P Pulse Ox O2 Delivery O2 Flow Rate FiO2 10/01/16 15:34 95 75 10/01/16 14:00 94 10/01/16 12:00 100 10/01/16 12:00 98.8 93 16 109/54 95 10/01/16 12:00 93 10/01/16 11:22 98 85 10/01/16 10:00 92 10/01/16 08:48 92 90 10/01/16 08:00 99.1 88 16 103/57 92 10/01/16 08:00 100 10/01/16 08:00 88 10/01/16 07:00 93 Mechanical Ventilator 100 10/01/16 06:00 90 10/01/16 04:00 100 10/01/16 04:00 98.8 94 14 129/57 93 10/01/16 04:00 94 10/01/16 03:21 92 100 10/01/16 02:00 90 10/01/16 01:35 91 100 10/01/16 00:00 100 10/01/16 00:00 92 10/01/16 00:00 98.7 92 14 106/58 94 09/30/16 22:37 93 100 09/30/16 22:00 94 09/30/16 20:05 90 100 09/30/16 20:00 98.4 96 15 114/65 94 09/30/16 20:00 100 09/30/16 20:00 96 09/30/16 19:30 139 09/30/16 19:00 93 Non-Rebreather 15.00 09/30/16 18:00 114 09/30/16 16:00 98.4 118 23 125/64 91 09/30/16 16:00 118 -: 09/30/16 1745 10/01/16 0500 Medication Review Current Medications Cefazolin Sodium/ Dextrose 50 ml @ 150 mls/hr HAND TIRE TRIMMER IV ; Start 09/21/16 at 05 :45; Stop 09/21/16 at 06:48; Status DC Lactated Ringer's 1,000 ml @ 30 mls/hr Q24H PRN IV SEE LABEL COMMENTS Last administered on 09/21/16 06:25; Start 09/21/16 at 05:45; Stop 09/21/16 at 14:01; Status DC Sodium Chloride (NS 500 ml Inj) 500 ml @ 30 mls/hr [id number] PRN IV SEE LABEL COMMENTS; Start 09/21/16 at 05:45; Stop 09/21/16 at 14:01; Status DC Metoprolol Tartrate (Lopressor) 25 mg HAND TIRE TRIMMER PRN PO SEE LABEL COMMENTS; Start 09/21/16 at 05:45; Stop 09/24/16 at 05:44; Status DC Povidone Iodine (Betadine 5% Antisepsis Kit) 1 applic HAND TIRE TRIMMER PRN EACH NARE SEE LABEL COMMENTS Last administered on 09/21/16 06:25; Start 09/21/16 at 05:45; Stop 09/24/16 at 05:44; Status DC Chlorhexidine Gluconate (Chlorhexidine 2% Cloth) 3 pack HAND TIRE TRIMMER PRN TOPICAL SEE LABEL COMMENTS; Start 09/21/16 at 05:45; Stop 09/24/16 at 05:44; Status DC Insulin Human Regular (NovoLIN R INJ) See Protocol Table ... HAND TIRE TRIMMER PRN SQ SEE PROTOCOL TABLE; Start 09/21/16 at 05:45; Stop 09/24/16 at 05:44; Status DC Gelatin (Gelfoam 100 Top) 1 foam STK-MED ONCE .ROUTE ; Start 09/21/16 at 06:15; Stop 09/21/16 at 06:16; Status DC Bupivacaine HCl/ Epinephrine Bitart 50 ml 50 ml STK-MED ONCE .ROUTE Last administered on 09/21/16 08:16; Start 09/21/16 at 06:30; Stop 09/21/16 at 06:31; Status DC Cefazolin Sodium/ Dextrose (Ancef 2 Gm Premix) 50 ml @ 150 mls/hr HAND TIRE TRIMMER IV Last administered on 09/21/16 07:50; Start 09/21/16 at 07:00; Stop 09/21/16 at 14: 02; Status DC Acetaminophen (Ofirmev Inj) 1,000 mg STK-MED ONCE IV ; Start 09/21/16 at 07:23; Stop 09/21/16 at 07:24; Status DC Sugammadex Sodium (Bridion Inj) 200 mg STK-MED ONCE IV PUSH ; Start 09/21/16 at 07:23; Stop 09/21/16 at 07:24; Status DC Famotidine 20 mg 20 mg STK-MED ONCE .ROUTE ; Start 09/21/16 at 07:23; Stop at 07:24; Status DC Sodium Chloride (NS 1000 ml Inj) 1,000 ml @ 125 mls/hr Q8H IV Last administered on 09/23/16 05:01; Start 09/21/16 at 12:36; Stop 09/24/16 at 01:01; Status DC Sodium Chloride (NS Flush) 2 ml UNSCH PRN IV FLUSH FLUSH AFTER USING IV ACCESS ; Start 09/21/16 at 12:45 Sodium Chloride (NS Flush) 2 ml BID IV FLUSH Last administered on 09/30/16 21: 09; Start 09/21/16 at 21:00 Oxycodone/ Acetaminophen (Percocet 5-325 Mg) 1 tab Q4H PRN PO PAIN SCALE 1 TO 5 Last administered on 09/25/16 08:07; Start 09/21/16 at 12:45 Oxycodone/ Acetaminophen (Percocet 5-325 Mg) 2 tab Q4H PRN PO PAIN SCALE 6 TO 10; Start 09/21/16 at 12:45 Hydromorphone HCl (Dilaudid Pf Inj) 1 mg Q2H PRN IV PAIN SCALE 1 TO 5; Start at 12:45; Stop 09/23/16 at 07:51; Status DC Hydromorphone HCl (Dilaudid Pf Inj) 2 mg Q2H PRN IV BREAKTHROUGH PAIN Last administered on 09/25/16 09:48; Start 09/21/16 at 12:45 Oxybutynin Chloride (Ditropan) 5 mg TID PO Last administered on 09/30/16 17:58 ; Start 09/21/16 at 13:00 Ondansetron HCl (Zofran Inj) 4 mg Q6H PRN IV NAUSEA Last administered on 15:43; Start 09/21/16 at 12:45 Miscellaneous Information STAT ONCE XX ; Start 09/21/16 at 12:45; Stop 09/21/16 at 14:07; Status DC Cefazolin Sodium/ Sodium Chloride (Ancef Inj/NS Inj) 100 ml @ 200 mls/hr Q12H IV Last administered on 09/22/16 18:53; Start 09/21/16 at 20:00; Stop 09/22/16 at 20:29; Status DC Heparin Sodium (Porcine) (Heparin Inj) 5,000 units Q12H SQ Last administered on 10/01/16 11:28; Start 09/22/16 at 12:00 Naloxone HCl (Narcan Inj) 0.4 mg UNSCH PRN IV RESPIRATORY RATE LESS THAN 10; Start 09/21/16 at 12:45; Stop 09/23/16 at 07:51; Status DC Hydromorphone HCl (Dilaudid ART CLASS MODEL Inj) 6 mg UNSCH IV Last administered on 04:23; Start 09/21/16 at 12:45; Stop 09/23/16 at 07:51; Status DC ART CLASS MODEL Dosage Infused (Pha) 1 Q8HR OTHER Last administered on 09/23/16 06:58; Start 09/21/16 at 14:00; Stop 09/23/16 at 07:51; Status DC Morphine Sulfate (*morphine INJ PERIprocedure ONLY) 8 mg STK-MED ONCE .ROUTE Last administered on 09/21/16 12:54; Start 09/21/16 at 12:54; Stop 09/21/16 at 12: 55; Status DC Morphine Sulfate (*morphine INJ PERIprocedure ONLY) 8 mg STK-MED ONCE .ROUTE Last administered on 09/21/16 13:08; Start 09/21/16 at 13:08; Stop 09/21/16 at 13: 18; Status DC Midazolam HCl (Versed Inj) 2 mg STK-MED ONCE .ROUTE ; Start 09/21/16 at 13:37; Stop 09/21/16 at 13:38; Status DC Fentanyl Citrate (fentaNYL INJ) 500 mcg STK-MED ONCE .ROUTE ; Start 09/21/16 at 13:37; Stop 09/21/16 at 13:38; Status DC Labetalol HCl (Trandate Inj) 20 mg Q3H PRN IV PUSH SBP > 160 Last administered on 09/29/16 04:13; Start 09/21/16 at 17:15 Hydralazine HCl 10 mg 10 mg Q2H PRN IV PUSH SBP > 170 Last administered on 18:23; Start 09/21/16 at 17:15 Sodium Chloride 1,000 ml @ 1,000 mls/hr Q1H ONCE IV ; Start 09/21/16 at 18:15; Stop 09/21/16 at 19:14; Status DC Sodium Chloride 500 ml @ 500 mls/hr NOW ONCE IV Last administered on 21:58; Start 09/21/16 at 22:00; Stop 09/21/16 at 22:59; Status DC Sodium Chloride (NS 500 ml Inj) 500 ml @ 500 mls/hr Q1H ONCE IV Last administered on 09/22/16 06:48; Start 09/22/16 at 06:45; Stop 09/22/16 at 07:44; Status DC Bumetanide 2 mg 2 mg NOW ONCE IV PUSH Last administered on 09/22/16 14:20; Start 09/22/16 at 14:00; Stop 09/22/16 at 14:01; Status DC Bumetanide (Bumex Inj) 100 ml @ 1 mls/hr CONTINUOUS IV Last administered on 09/23 16:57; Start 09/22/16 at 15:45; Stop 09/25/16 at 16:39; Status DC Dextrose (D50w (Vial) Inj) 25 ml ONCE ONCE IV PUSH Last administered on 14:20; Start 09/22/16 at 14:00; Stop 09/22/16 at 14:01; Status DC Insulin Human Regular (NovoLIN R INJ) 10 units ONCE ONCE IV PUSH Last administered on 09/22/16 14:26; Start 09/22/16 at 14:00; Stop 09/22/16 at 14:01; Status DC Docusate Sodium (Colace) 100 mg BID PO Last administered on 09/30/16 21:09; Start 09/23/16 at 09:00 Metoprolol Tartrate (Lopressor Inj) 5 mg STK-MED ONCE .ROUTE Last administered on 09/23/16 08:48; Start 09/23/16 at 08:21; Stop 09/23/16 at 08:22; Status DC Diltiazem HCl 20 mg 20 mg ONCE ONCE IVP Last administered on 09/23/16 08:54; Start 09/23/16 at 08:45; Stop 09/23/16 at 08:46; Status DC Diltiazem HCl 125 mg/Sodium Chloride 125 ml @ 0 mls/hr TITRATE IV Last administered on 10/01/16 04:21; Start 09/23/16 at 08:45 Amiodarone HCl 150 mg/Dextrose 100 ml @ 100 mls/hr ONCE ONCE IV Last administered on 09/23/16 08:45; Start 09/23/16 at 08:45; Stop 09/23/16 at 09:44; Status DC Amiodarone HCl 450 mg/Dextrose 250 ml @ 0 mls/hr CONTINUOUS IV Last administered on 09/26/16 11:54; Start 09/23/16 at 08:45; Stop 09/26/16 at 15:33; Status DC Potassium Chloride 100 ml @ 50 mls/hr BOLUS ONCE IV Last administered on 13:45; Start 09/24/16 at 12:45; Stop 09/24/16 at 14:44; Status DC Magnesium Sulfate/ Dextrose (Magnesium Sulfate 1 Gm Premix) 100 ml @ 100 mls/ hr Q1H IV Last administered on 09/24/16 15:12; Start 09/24/16 at 14:00; Stop 09/24/16 at 15:59; Status DC Pantoprazole Sodium (Protonix Inj) 40 mg Q24H IV PUSH Last administered on 09/30 13:57; Start 09/24/16 at 14:00 Hydromorphone HCl (Dilaudid Pf Inj) 0.2 mg Q4H PRN IV PUSH PAIN SCALE 1 TO 5 Last administered on 09/29/16 21:34; Start 09/24/16 at 13:00 Amlodipine Besylate (Norvasc) 10 mg DAILY PO Last administered on 09/28/16 08: 49; Start 09/24/16 at 13:00 Metoprolol Tartrate (Lopressor) 25 mg Q12HR PO Last administered on 09/29/16 08:21; Start 09/24/16 at 13:00 Potassium Chloride (KCl) 20 meq ONCE ONCE PO Last administered on 09/25/16 11: 17; Start 09/25/16 at 11:15; Stop 09/25/16 at 11:16; Status DC Ondansetron HCl 4 mg 4 mg NOW ONCE IV Last administered on 09/25/16 12:46; Start 09/25/16 at 12:45; Stop 09/25/16 at 12:46; Status DC Potassium Chloride 100 ml @ 50 mls/hr BOLUS ONCE IV Last administered on 18:31; Start 09/25/16 at 17:00; Stop 09/25/16 at 18:59; Status DC Potassium Chloride/Sodium Chloride (NS + KCl 20 Meq Inj) 1,000 ml @ 84 mls/hr [id number] IV Last administered on 09/27/16 06:21; Start 09/25/16 at 17:00; Stop 09/27/16 at 18:17; Status DC Magnesium Citrate (Citroma Liq) 300 ml Q6H PO Last administered on 09/26/16 04: 55; Start 09/25/16 at 20:00; Stop 09/26/16 at 02:01; Status DC Bisacodyl (Dulcolax Ec) 10 mg Q3H PO Last administered on 09/26/16 03:01; Start 09/26/16 at 00:00; Stop 09/26/16 at 03:01; Status DC Lorazepam (Ativan Inj) 0.5 mg UNSCH X1 IV Last administered on 09/25/16 21:07 ; Start 09/25/16 at 20:30; Stop 09/25/16 at 22:00; Status DC Lorazepam (Ativan Inj) 1 mg ONCE ONCE IV Last administered on 09/26/16 17:15; Start 09/26/16 at 17:15; Stop 09/26/16 at 17:16; Status DC Midazolam HCl (Versed Inj) 5 mg STK-MED ONCE .ROUTE Last administered on 17:30; Start 09/26/16 at 17:19; Stop 09/26/16 at 17:20; Status DC Haloperidol Lactate 2 mg 2 mg Q6H PRN IV PUSH AGITATION Last administered on 00:03; Start 09/26/16 at 21:15 Dexmedetomidine HCl 200 mcg/ Sodium Chloride 52 ml @ 0 mls/hr TITRATE IV ; Start 09/26/16 at 21:15; Stop 09/29/16 at 12:06; Status DC Amiodarone HCl 150 mg/Dextrose 100 ml @ 100 mls/hr ONCE ONCE IV ; Start at 10:00; Stop 09/27/16 at 10:59; Status DC Amiodarone HCl 450 mg/Dextrose 250 ml @ 0 mls/hr CONTINUOUS IV ; Start 09/27/16 at 09:15 Potassium Chloride 100 ml @ 50 mls/hr BOLUS ONCE IV Last administered on 09/27 18:43; Start 09/27/16 at 18:15; Stop 09/27/16 at 20:14; Status DC Potassium Chloride/Sodium Chloride (1/2 NS + KCl 20 Meq Inj) 1,000 ml @ 100 mls /hr Q10H IV Last administered on 09/28/16 22:04; Start 09/27/16 at 18:15; Stop 09/29/16 at 12:06; Status DC Bisacodyl (Dulcolax Supp) 10 mg DAILY PRN RECTAL CONSTIPATION; Start 09/27/16 at 19:30 Metoclopramide HCl 5 mg 5 mg Q8H IV PUSH Last administered on 10/01/16 11:28; Start 09/28/16 at 11:00 Sodium Chloride (1/2 NS 1000 ml Inj) 1,000 ml @ 999 mls/hr Q1H1M ONCE IV Last administered on 09/28/16 14:40; Start 09/28/16 at 15:15; Stop 09/28/16 at 16:27 ; Status DC Furosemide (Lasix Inj) 40 mg NOW ONCE IV PUSH Last administered on 09/29/16 04:31; Start 09/29/16 at 04:30; Stop 09/29/16 at 04:31; Status DC Digoxin (Lanoxin Inj) 0.25 mg STAT ONCE IV PUSH Last administered on 10:15; Start 09/29/16 at 10:15; Stop 09/29/16 at 10:16; Status DC Albumin Human 25 gm 25 gm STAT ONCE IV Last administered on 09/29/16 10:15; Start 09/29/16 at 10:15; Stop 09/29/16 at 10:16; Status DC Phenylephrine HCl/ Dextrose (Neosynephrine Inj/D5W 500 ml Inj) 500 ml @ 0 mls/ hr TITRATE IV Last administered on 10/01/16 04:22; Start 09/29/16 at 11:00 Bumetanide (Bumex Inj) 2 mg STK-MED ONCE .ROUTE Last administered on 09/29/16 10:48; Start 09/29/16 at 10:48; Stop 09/29/16 at 10:49; Status DC Bumetanide (Bumex Inj) 2 mg ONCE ONCE IV PUSH ; Start 09/29/16 at 11:00; Stop 09/29/16 at 11:11; Status DC Sodium Bicarbonate (Sodium Bicarbonate 8.4% Inj) 100 meq ONCE ONCE IV Last administered on 09/29/16 11:00; Start 09/29/16 at 11:00; Stop 09/29/16 at 11:11 ; Status DC Lorazepam (Ativan Inj) 2 mg STK-MED ONCE .ROUTE ; Start 09/29/16 at 17:14; Stop 09/29/16 at 17:15; Status DC Fentanyl Citrate (fentaNYL INJ) 100 mcg STK-MED ONCE .ROUTE ; Start 09/29/16 at 17:16; Stop 09/29/16 at 17:17; Status DC Fentanyl Citrate (fentaNYL INJ) 50 mcg NOW ONCE IV Last administered on 17:20; Start 09/29/16 at 19:00; Stop 09/29/16 at 19:01; Status DC Lorazepam 0.5 mg 0.5 mg NOW ONCE IV Last administered on 09/29/16 17:20; Start 09/29/16 at 19:00; Stop 09/29/16 at 19:01; Status DC Potassium Chloride (KCl 20 Meq Premix Inj) 100 ml @ 50 mls/hr NOW ONCE IV Last administered on 09/30/16 09:06; Start 09/30/16 at 08:45; Stop 09/30/16 at 10:44; Status DC Insulin Aspart (NovoLOG SUPPLEMENTAL SCALE) 1 Q6HR SQ Last administered on 10/01 11:40; Start 09/30/16 at 18:00; Stop 10/01/16 at 14:33; Status DC Dextrose (D50w (Vial) Inj) 25 ml UNSCH PRN IV HYPOGLYCEMIA-SEE COMMENTS; Start 09/30/16 at 16:45; Stop 10/01/16 at 14:33; Status DC Glucagon 1 mg 1 mg UNSCH PRN IM/SQ HYPOGLYCEMIA-SEE COMMENTS; Start 09/30/16 at 16:45; Stop 10/01/16 at 14:33; Status DC Sodium Chloride 11 meq/Sodium Acetate 59 meq/ Potassium Chloride 40 meq/ Magnesium Chloride 10 meq/ Calcium Chloride 9 meq/ Multivitamins 10 ml/Folic Acid 1 mg/Amino Acids/ Dextrose 2,074.1437 ml @ 83 mls/hr Q24H IV-CENTRAL Last administered on 09/30/16 21:11; Start 09/30/16 at 20:00 Fat Emulsion Intravenous (Liposyn Iii 20% Inj) 250 ml @ 31.25 mls/ hr Q24H IV- CENTRAL Last administered on 09/30/16 21:10; Start 09/30/16 at 20:00 Etomidate (Amidate Inj) 20 mg STK-MED ONCE .ROUTE Last administered on 21:10; Start 09/30/16 at 19:47; Stop 09/30/16 at 19:48; Status DC Succinylcholine Chloride 200 mg 200 mg STK-MED ONCE .ROUTE ; Start 09/30/16 at 19:48; Stop 09/30/16 at 19:49; Status DC Midazolam HCl 100 ml @ 0 mls/hr TITRATE IV ; Start 09/30/16 at 20:15 Fentanyl Citrate (fentaNYL DRIP) 250 ml @ 0 mls/hr TITRATE IV ; Start 09/30/16 at 20:15 Midazolam HCl (Versed Inj) 5 mg STK-MED ONCE .ROUTE Last administered on 21:08; Start 09/30/16 at 20:13; Stop 09/30/16 at 20:14; Status DC Fentanyl Citrate (fentaNYL INJ) 100 mcg STK-MED ONCE .ROUTE Last administered on 09/30/16 21:06; Start 09/30/16 at 20:14; Stop 09/30/16 at 20:15; Status DC Midazolam HCl (Versed Inj) 2 mg NOW ONCE IV ; Start 09/30/16 at 20:30; Stop at 20:31; Status DC Fentanyl Citrate (fentaNYL INJ) 100 mcg NOW ONCE IV ; Start 09/30/16 at 20:30; Stop 09/30/16 at 20:31; Status DC Albuterol/ Ipratropium (Duoneb Neb) 1 ampule Q4HR NEB NEB Last administered on 10/01/16t 15:32; Start 10/01/16 at 00:00 Albuterol/ Ipratropium 1 ampule 1 ampule Q2HR NEB PRN NEB RESPIRATORY DISTRESS ; Start 09/30/16 at 23:00 Sodium Chloride (NS 1000 ml Inj) 1,000 ml @ 0 mls/hr BOLUS ONCE IV Last administered on 10/01/16t 04:21; Start 10/01/16 at 03:15; Stop 10/01/16 at 03:16 ; Status DC Insulin Detemir (Levemir Inj) 10 units Q12HR SQ ; Start 10/01/16 at 14:45 Insulin Aspart (NovoLOG SUPPLEMENTAL SCALE) 1 Q6HR SQ ; Start 10/01/16 at 18:00 Dextrose (D50w (Vial) Inj) 25 ml UNSCH PRN IV HYPOGLYCEMIA-SEE COMMENTS; Start 10/01/16 at 14:45 Glucagon 1 mg 1 mg UNSCH PRN IM/SQ HYPOGLYCEMIA-SEE COMMENTS; Start 10/01/16 at 14:45 Cefepime HCl 1000 mg/Sodium Chloride 100 ml @ 200 mls/hr Q24H IV ; Start at 16:00 Metronidazole (Flagyl 500 Mg Inj) 100 ml @ 100 mls/hr Q8H IV ; Start 10/01/16 at 15:00 Physical Exam Eyes Eye Exam: Pupils Equal Throat Throat Exam: Oral Mucosa Flippin & Moist Neck Neck Exam: Neck Supple Pulmonary Resp Exam: Clear Bilaterally, Breath Sounds Equal, Decreased Bases Cardiology CV Exam: Regular Gastrointestinal/Abdomen GI Exam: Soft, Distended Integumentary Skin Exam: Clear, Warm Extremeties Extremities Exam: No Edema Neurologic Neuro Exam: Alert, Awake Psychiatric Psych Exam: Appropriate Responses Assessment/Plan Discussed Condition With: Spouse, Son Assessment Summary: YOLA/Acute Renal Failure, CKD Stage III Problem List: (1) Acute renal failure Plan: Patient developed respiratory insufficiency overnight. Azotemia now worsening again. Urine output appears to be tapering down somewhat. I discussed the situation with the patient's and son by bedside. In view of worsening azotemia appears to be progressive recommended that we initiate dialysis to improve the patient's metabolic status. Would also like urology's opinion regarding placement of a nephrostomy tube. Despite fairly good urine output the patient does have hydronephrosis on imaging progressive azotemia. I am uncertain however if there is significant obstruction present or if they would be significant benefit from placement of nephrostomy tube as discussed with patient's and son. Patient's indicated that she believes that oxygenation from the patient being on a ventilator will improve his heart function subsequently kidney function. I indicated to her that I did not believe that this would have a significant impact on the patient's renal function. Await urology opinion. Case discussed with critical care. Son and advised potential adverse effects of worsening azotemia. They indicated that they do not want to start dialysis at this time however. Repeat renal panel in a.m. and if his azotemia continues to worsen will approach them again regarding dialysis. (2) Hypertension (3) History of nephroureterectomy Plan: this admission on left side for malignancy Jason Landry MD October 01, 2016 16:02
--- NOTE | 2016-10-01 18:33 | HHI.PR ---
Subjective Patient symptoms today POD#10 Left hand assist Lap Nephroureterectomy Intubated overnight due to respiratory distress. Cr worsening today. NGT in place. Sedated. UOP decreasing. Afib controlled Objective Vital Signs Vital Signs Date Time Temp Pulse Resp B/P Pulse Ox O2 Delivery O2 Flow Rate FiO2 10/01/16 18:00 94 10/01/16 16:00 100 10/01/16 16:00 98.6 95 16 94/53 94 10/01/16 16:00 95 10/01/16 15:34 95 75 10/01/16 14:00 94 10/01/16 12:00 100 10/01/16 12:00 98.8 93 16 109/54 95 10/01/16 12:00 93 10/01/16 11:22 98 85 10/01/16 10:00 92 10/01/16 08:48 92 90 10/01/16 08:00 99.1 88 16 103/57 92 10/01/16 08:00 100 10/01/16 08:00 88 10/01/16 07:00 93 Mechanical Ventilator 100 10/01/16 06:00 90 10/01/16 04:00 100 10/01/16 04:00 98.8 94 14 129/57 93 10/01/16 04:00 94 10/01/16 03:21 92 100 10/01/16 02:00 90 10/01/16 01:35 91 100 10/01/16 00:00 100 10/01/16 00:00 92 10/01/16 00:00 98.7 92 14 106/58 94 09/30/16 22:37 93 100 09/30/16 22:00 94 09/30/16 20:05 90 100 09/30/16 20:00 98.4 96 15 114/65 94 09/30/16 20:00 100 09/30/16 20:00 96 09/30/16 19:30 139 09/30/16 19:00 93 Non-Rebreather 15.00 Intake & Output 10/01/16 10/01/16 07:00 19:00 Intake Total 2651 ml 768 ml Output Total 615 ml 180 ml Balance 2036 ml 588 ml IV Total 1706 ml 168 ml TPN/PPN 695 ml 600 ml Lipid 250 ml Output Urine Total 500 ml 175 ml Gastric Drainage Total 100 ml 0 ml Drainage Total 15 ml 5 ml # Bowel Movements 0 0 Result Diagram: 09/30/16 7579 10/01/16 0500 Objective Remarks Intubated and sedated Ab is soft, mildly distended and tympanitic NGT in place with dark brown output Incision c/d/i, cisco in place ANN-MARIE drain clear fluid, serous Valentine in place, clear, yellow Medications and IVs Current Medications Medications (Trade) Dose Ordered Sig/Néstor Route Start Time Stop Time Status Last Admin (NS Flush) 2 ml UNSCH PRN IV FLUSH 09/21/16 12:45 (NS Flush) 2 ml BID IV FLUSH 09/21/16 21:00 09/30/16 21:09 (Percocet 5-325 Mg) 1 tab Q4H PRN PO 09/21/16 12:45 09/25/16 08:07 (Percocet 5-325 Mg) 2 tab Q4H PRN PO 09/21/16 12:45 (Dilaudid Pf Inj) 2 mg Q2H PRN IV 09/21/16 12:45 10/01/16 15:55 (Ditropan) 5 mg TID PO 09/21/16 13:00 09/30/16 17:58 (Zofran Inj) 4 mg Q6H PRN IV 09/21/16 12:45 09/27/16 15:43 (Heparin Inj) 5,000 units Q12H SQ 09/22/16 12:00 10/01/16 11:28 (Trandate Inj) 20 mg Q3H PRN IV PUSH 09/21/16 17:15 09/29/16 04:13 (Apresoline Inj) 10 mg Q2H PRN IV PUSH 09/21/16 17:15 09/24/16 18:23 Docusate Sodium 100 mg 100 mg BID PO 09/23/16 09:00 09/30/16 21:09 (Cardizem Inj/NS Inj) 125 ml @ 0 mls/hr TITRATE IV 09/23/16 08:45 10/01/16 04:21 (Protonix Inj) 40 mg Q24H IV PUSH 09/24/16 14:00 10/01/16 15:54 (Dilaudid Pf Inj) 0.2 mg Q4H PRN IV PUSH 09/24/16 13:00 09/29/16 21:34 (Norvasc) 10 mg DAILY PO 09/24/16 13:00 09/28/16 08:49 (Lopressor) 25 mg Q12HR PO 09/24/16 13:00 09/29/16 08:21 Haloperidol Lactate 2 mg 2 mg Q6H PRN IV PUSH 09/26/16 21:15 09/27/16 00:03 (Cordarone Inj/ D5W ([place]) Inj) 250 ml @ 0 mls/hr CONTINUOUS IV 09/27/16 09:15 (Dulcolax Supp) 10 mg DAILY PRN RECTAL 09/27/16 19:30 Metoclopramide HCl 5 mg 5 mg Q8H IV PUSH 09/28/16 11:00 10/01/16 18:12 Phenylephrine HCl 40 mg/Dextrose 500 ml @ 0 mls/hr TITRATE IV 09/29/16 11:00 10/01/16 04:22 Sodium Chloride 11 meq/Sodium Acetate 59 meq/ Potassium Chloride 40 meq/ Magnesium Chloride 10 meq/ Calcium Chloride 9 meq/ Multivitamins 10 ml/Folic Acid 1 mg/Amino Acids/ Dextrose 2,074.1437 ml @ 83 mls/hr Q24H IV-CENTRAL 09/30/16 20:00 09/30/16 21:11 Fat Emulsion Intravenous 250 ml @ 31.25 mls/ hr Q24H IV-CENTRAL 09/30/16 20:00 09/30/16 21:10 Midazolam HCl 100 ml @ 0 mls/hr TITRATE IV 09/30/16 20:15 (fentaNYL DRIP) 250 ml @ 0 mls/hr TITRATE IV 09/30/16 20:15 (Levemir Inj) 10 units Q12HR SQ 10/01/16 14:45 10/01/16 15:58 (NovoLOG SUPPLEMENTAL SCALE) 1 Q6HR SQ 10/01/16 18:00 10/01/16 18:16 (D50w (Vial) Inj) 25 ml UNSCH PRN IV 10/01/16 14:45 Glucagon 1 mg 1 mg UNSCH PRN IM/SQ 10/01/16 14:45 Cefepime HCl 1000 mg/Sodium Chloride 100 ml @ 200 mls/hr Q24H IV 10/01/16 16:00 10/01/16 15:55 (Flagyl 500 Mg Inj) 100 ml @ 100 mls/hr Q8H IV 10/01/16 15:00 10/01/16 15:55 Assessment and Plan Assessment and Plan POD #10 Left hand assist lap nephroureterectomy -Intubated due to respiratory distress -Hgb stable -Afib improved with Cardizem -Cr elevated to 5.12. Patient will likely need to start Dialysis. Highly unlikely obstructive process from the right kidney despite the hydronephrosis as he has been producing urine throughout this time. Decompression of the right renal unit would unlikely result in improved renal function, however will consider nephrostomy tube. Regardless, patient would likely need dialysis due to the continued rise in Cr and BUN. -NGT in place -TPN started -Continue Hep SQ -Maintain ANN-MARIE drain for now -Valentine catheter to remain in place for 2 weeks post-op. -Appreciate all teams involved in patient care Boaz Cordero MD October 01, 2016 18:33
[2016-10-01] MEDS: FAT EMULSION 20% INJ 250 ML (Daily over 8 hours) IV-CENTRAL SCH (20:27)
[2016-10-01] MEDS: CLINIMIX 4.25/25 (Cust.Renal Central) 2000 mL- >42 mls/hr IV-CENTRAL SCH ×8 (20:28)
[2016-10-01 20:38] LABS: BACTERIA, URINE OCC /hpf; BLOOD, URINE NEG (NEG); GLUCOSE,URINE NEG (NEG); KETONE, URINE NEG (NEG); MUCUS URINE FEW /lpf (OCC); NITRITE,URINE NEG (NEG); SQUAMOUS EPITHELIAL CELL URINE <1 /hpf (0-5); URINE COLOR YELLOW (YELLW/STRAW)
[2016-10-01 20:39] LABS: COMMENT (UR) CATH-CULTURE IND; CULTURE IF INDICATED CATH CULTURE IND
[2016-10-02] VITALS (12 sets, daily range): BP systolic 98–123; BP diastolic 55–62; PULSE 87–152; RESP 14–24; TEMP 98.3–99.5; O2SAT 88–95
[2016-10-02] MEDS: INSULIN ASPART SUPPLEMENTAL SCALE SQ SCH ×3 (01:39→12:45)
[2016-10-02] MEDS: DILTIAZEM INJ 125 MG in SODIUM CHLORIDE 0.9% INJ 100 ML IV SCH ×2 (02:00→10:15)
[2016-10-02] MEDS: PHENYLEPHRINE 40 MG/D5W 496 ML ADMIX IV SCH ×4 (02:01→11:16)
[2016-10-02] MEDS: METOCLOPRAMIDE HCL 10 MG/2 ML VIAL IV PUSH SCH ×2 (02:22→10:12)
[2016-10-02] MEDS: RESP: ALBUTEROL 2.5 MG/IPRATROPIUM 0.5 MG NEB (SCH) NEB ×3 (03:32→12:00)
[2016-10-02] MEDS: HYDROmorphone HCL PF 2 MG/ML VIAL IV PRN ×2 (04:31→15:34)
[2016-10-02 05:51] LABS: AUTOMATED NEUTROPHIL # 12.7 TH/MM3 (1.8-7.7); BASOPHIL # 0.1 TH/MM3 (0-0.2); BASOPHIL % 0.4 % (0.0-2.0); EOSINOPHIL # 0.1 TH/MM3 (0-0.4); EOSINOPHIL % 0.7 % (0.0-4.0); HEMATOCRIT 26.9 % (39.0-51.0); LYMPH % 1.8 % (9.0-44.0); LYMPHOCYTE # 0.3 TH/MM3 (1.0-4.8); MEAN CELL VOLUME 99.2 FL (80.0-100.0); MEAN CORPUSCULAR HEMOGLOBIN 33.4 PG (27.0-34.0); MEAN CORPUSCULAR HGB CONC 33.7 % (32.0-36.0); MONO % 4.6 % (0.0-8.0); NEUT % 92.5 % (16.0-70.0); PLATELET COUNT 262 TH/MM3 (150-450); RED BLOOD COUNT 2.71 MIL/MM3 (4.50-5.90); RED CELL DISTRIBUTION WIDTH 14.3 % (11.6-17.2); WHITE BLOOD COUNT 13.7 TH/MM3 (4.0-11.0)
[2016-10-02 05:57] LABS: HEMO FLAGS AUTO DIFF
[2016-10-02 06:25] LABS: ALKALINE PHOSPHATASE 77 U/L (45-117); ALT (GPT) 12 U/L (12-78); ANION GAP 10 MEQ/L (5-15); AST (GOT) 15 U/L (15-37); BICARBONATE 21.2 MEQ/L (21.0-32.0); BLOOD UREA NITROGEN 144 MG/DL (7-18); CHLORIDE 110 MEQ/L (98-107); GLOMERULAR FILTRATION RATE 9 ML/MIN (>89); MAGNESIUM 3.2 MG/DL (1.5-2.5); POTASSIUM 3.7 MEQ/L (3.5-5.1); SODIUM (NA) 141 MEQ/L (136-145); TOTAL BILIRUBIN ADULT 1.5 MG/DL (0.2-1.0)
[2016-10-02 06:53] LABS: BANDS 18 % (0-6); EOSINOPHILS 2 % (0-4); NEUTROPHIL # MANUAL DIFF 11.6 TH/MM3 (1.8-7.7); PLATELET ESTIMATE SMEAR NORMAL (NORMAL); PLATELET MORPHOLOGY NORMAL (NORMAL); POLYS (SEG NEUTROPHILS) 67 % (16-70); SCAN/DIFF FINAL DIFF MANUAL; WBC DIFF SAMPLE 100
[2016-10-02 06:54] LABS: DOHLE BODIES PRESENT (NONE SEEN)
[2016-10-02 06:55] LABS: TOXIC VACUOLATION PRESENT (NONE SEEN)
[2016-10-02] MEDS: metroNIDAZOLE 500 MG INJ 100 ML IV SCH ×2 (07:09→15:00)
[2016-10-02] MEDS ORDERED: BUMETANIDE INJ 1 MG/4 ML VIAL IV PUSH ONE (08:30)
--- NOTE | 2016-10-02 08:30 | HHI.CCPN ---
Subjective Remarks/Hospital Course 81 y/o man underwent uncomplicated left nephrectomy including ureter down to bladder today. Comes back to ICU looking great, breathing comfortably, warm and well perfused. 09/22: Breathing comfortably. Warm, well perfused. Lungs clear. 09/23: Good response to loop diuretic, > 5 liter, cut rate by 50%. New onset a- fib with RVR. Start cardizem for rate control, add amiodarone for conversion. Continue BID sq heparin, will add full anticoagulation if a-fib persists. Check mag, phos, k. 09/24: Back in NSR but increased ventricular ectopy, episodic burst of a-fib. Breathing much improved after bumex diuresis. Creatine rising; will reduce bumex gtt by 50% again today. Urine remains copious. Add low dose beta gage, continue amiodarone drip.Follow K, Mag, Phos closely. 09/25: Creat worsening, Bumex Dcd. Continues to have nausea and vomiting. CT of the abdomen pelvis from 09/23/16 shows left paraumbilical hernia containing a loop of small bowel. At least partial small bowel obstruction. CT also showed severe right hydronephrosis-urology and nephrology aware 09/26: Cr is 4.5 today, SB follow through done pending now. D/W Dr. Cordero- patient is nonoliguric, and at this time does not meet criteria for starting hemodialysis. In case he needs hemodialysis Dr. Cordero will place a nephrostomy tube for decompression 09/27: Elderly male resting in bed, not in any acute distress. NG tube remains to suction. Continues to make urine though BUN/creatinine remains elevated. Being followed by urology/nephrology who will decide regarding nephrostomy placement/hemodialysis if needed. Patient went back into A. fib following discontinuation of amiodarone drip on 09/26. We'll resume amiodarone drip with bolus. 09/28: Resting in bed comfortably. NG tube put out 900 cc in the last 24 hours. Denies any abdominal pain or nausea. Good urine output. BUN and creatinine remain elevated. 09/29: Acutely decompensated respiratory fontaine, with hypoxia. Also in A. fib with RVR with hypotension. Received metoprolol in a.m., no response to digoxin. On my exam patient was tachypneic hypoxemic requiring 100% nonrebreather. Systolic blood pressure was in the high 70s. I placed him on Simba-Synephrine, and have ordered Cardizem infusion, IV Albumin 25 GM x1. All IV fluids discontinued, Bumex 2 mg IV 1 given. Explained to possibility of intubation-patient is not a BiPAP candidate due to small bowel obstruction. 09/30: On nonrebreather facemask O2. O2 sats borderline. Awake and alert, following commands. Denies any abdominal pain currently. Has not had a BM. 10/01: Intubated on 09/30 for worsening respiratory status. Currently sedated, orally intubated on mechanical ventilation. Started on TPN last night. 10/02: Remains sedated, orally intubated on mechanical ventilation. Worsening oxygenation as well as renal function noted. Still making urine. Family wished to hold off on hemodialysis per discussion with nephrology yesterday. BUN and creatinine worsening. Patient will need hemodialysis if continued aggressive care desired. Objective Vital Signs Date Time Temp Pulse Resp B/P Pulse Ox O2 Delivery O2 Flow Rate FiO2 10/02/16 07:00 90 Mechanical Ventilator 70 10/02/16 06:00 96 10/02/16 05:01 18 10/02/16 04:00 99.0 123/56 09/30/16 19:00 15.00 Intake and Output 10/01/16 10/01/16 10/02/16 08:00 16:00 00:00 Intake Total 2480 ml 768 ml 718 ml Output Total 205 ml 180 ml 225 ml Balance 2275 ml 588 ml 493 ml Result Diagram: 10/02/16 0530 10/02/16 0530 Other Results Laboratory Tests Test 10/01/16 10/02/16 20:13 05:30 Urine Color YELLOW Urine Turbidity HAZY Urine pH 5.0 Urine Specific [place] 1.014 Urine Protein 30 mg/dL Urine Glucose (UA) NEG mg/dL Urine Ketones NEG mg/dL Urine Occult Blood NEG Urine Nitrite NEG Urine Bilirubin NEG Urine Urobilinogen LESS THAN 2.0 MG/DL Urine Leukocyte Esterase TRACE Urine RBC 2 /hpf Urine WBC 5 /hpf Urine Squamous Epithelial <1 /hpf Cells Urine Amorphous Sediment RARE Urine Bacteria OCC /hpf Urine Mucus FEW /lpf Microscopic Urinalysis Comment CATH-CULTURE IND White Blood Count 13.7 TH/MM3 Red Blood Count 2.71 MIL/MM3 Hemoglobin 9.1 GM/DL Hematocrit 26.9 % Mean Corpuscular Volume 99.2 FL Mean Corpuscular Hemoglobin 33.4 PG Mean Corpuscular Hemoglobin 33.7 % Concent Red Cell Distribution Width 14.3 % Platelet Count 262 TH/MM3 Mean Platelet Volume 9.0 FL Neutrophils (%) (Auto) 92.5 % Lymphocytes (%) (Auto) 1.8 % Monocytes (%) (Auto) 4.6 % Eosinophils (%) (Auto) 0.7 % Basophils (%) (Auto) 0.4 % Neutrophils # (Auto) 12.7 TH/MM3 Lymphocytes # (Auto) 0.3 TH/MM3 Monocytes # (Auto) 0.6 TH/MM3 Eosinophils # (Auto) 0.1 TH/MM3 Basophils # (Auto) 0.1 TH/MM3 CBC Comment AUTO DIFF Differential Total Cells 100 Counted Neutrophils % (Manual) 67 % Band Neutrophils % 18 % Lymphocytes % 6 % Monocytes % 7 % Eosinophils % 2 % Neutrophils # (Manual) 11.6 TH/MM3 Differential Comment FINAL DIFF MANUAL Toxic Vacuolation PRESENT Dohle Bodies PRESENT Platelet Estimate NORMAL Platelet Morphology Comment NORMAL Sodium Level 141 MEQ/L Potassium Level 3.7 MEQ/L Chloride Level 110 MEQ/L Carbon Dioxide Level 21.2 MEQ/L Anion Gap 10 MEQ/L Blood Urea Nitrogen 144 MG/DL Creatinine 6.05 MG/DL Estimat Glomerular Filtration 9 ML/MIN Rate Random Glucose 278 MG/DL Calcium Level 7.6 MG/DL Phosphorus Level 2.7 MG/DL Magnesium Level 3.2 MG/DL Total Bilirubin 1.5 MG/DL Aspartate Amino Transf 15 U/L (AST/SGOT) Alanine Aminotransferase 12 U/L (ALT/SGPT) Alkaline Phosphatase 77 U/L Total Protein 5.9 GM/DL Albumin 1.9 GM/DL Imaging Last 48 hours Impressions Chest X-Ray 09/30/16 0000 Signed Impressions: Service Date/Time: Friday, September 30, 2016 20:17 - CONCLUSION: 1. Bibasilar patchiness (left worse than right) consistent with probable mild pneumonia. Clinical correlation is recommended. 2. Multiple tubes and lines are stable. 3. Endotracheal tube in good position 4 cm above the kadi. Eric Manzanares MD Chest X-Ray 09/30/16 0000 Signed Impressions: Service Date/Time: Friday, September 30, 2016 12:33 - CONCLUSION: Bibasilar densities likely atelectasis. Wilfredo Stephenson MD Last Impressions Chest X-Ray 09/27/16 0600 Signed Impressions: Service Date/Time: Tuesday, September 27, 2016 03:05 - CONCLUSION: Hypoinflation with left basilar atelectasis. Shalom Chery Jr., MD Abdomen X-Ray 09/25/16 0000 Signed Impressions: Service Date/Time: Sunday, September 25, 2016 18:35 - CONCLUSION: Moderate diffuse gaseous distention of small bowel Curt Bee MD Abdomen/Pelvis CT 09/23/16 0000 Signed Impressions: Service Date/Time: Friday, September 23, 2016 17:42 - CONCLUSION: 1. There is a 2.3 cm left-sided paraumbilical hernia in the anterior abdominal wall containing a loop of bowel resulting in at least a partial small bowel obstruction. There is also gastric distention. 2. Postoperative recent left nephrectomy with residual fluid at the nephrectomy site and some residual free air within the abdomen as well as subcutaneous air in the left chest and abdominal wall. Drainage catheter left lower quadrant. 3. Severe right-sided hydronephrosis and dilatation of right ureter to just above the bladder. Valentine catheter present in the bladder. Berlin Umaña MD Renal Ultrasound 09/22/16 0000 Signed Impressions: Service Date/Time: Thursday, September 22, 2016 17:07 - CONCLUSION: 1. Moderate right hydronephrosis, etiology uncertain. Right ureteral calculus possible. A 7 mm stone is seen at the lower pole that appears to be nonobstructing. 2. Reported left nephrectomy. Large soft tissue structure in the nephrectomy bed. Differential includes residual kidney, shifted spleen and recurrent mass. There is also a large fluid collection medial to the left renal fossa. A CT of the abdomen and pelvis is recommended, preferably with an without intravenous contrast. Curt Tafoya MD Objective Remarks HEENT/ Neuro: Sedated, orally intubated, Pallor present, no icterus, tongue/ mucosa moist Neck: No JVD Chest/Pulm: on mech vent, good air entry bilaterally, scattered rhonchi, no wheezing or crackles CVS: S1-S2 irregularly irregular, no murmur GI/abdomen: soft, nontender, bowel sounds sluggish Extremities: warm bilaterally, no edema A/P Assessment and Plan ASSESSMENT [facility] Metabolic acidosis Atrial fibrillation with RVR Acute renal failure Status post left nephroureterectomy Right hydronephrosis ileus vs Small bowel obstruction/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 fib Bilateral infiltrates with Bandemia. Probable pneumonia Suspect sepsis Plan: Neuro: Sedation with propofol, avoid fentanyl in view of ileus. Daily sedation vacation. Follow neuro status Cardiovascular: Cardizem drip as needed for rate control for A. fib. Simba- Synephrine/low-dose vasopressin for pressor support. Pulmonary: Continue mechanical ventilation, vent bundle, bronchodilators as needed. Sputum sent for Gram stain and cultures. On PEEP +12, increasing FiO2 requirement. Chest x-ray pending. GI/liver: Continue NG suction. Continues to have ileus being followed by general surgery. Started on TPN 09/30 to maintain nutritional status. Continue Reglan to improve GI motility. Avoid narcotics. -Chest x-ray 09/30 reveals bilateral infiltrates more at the bases. CT chest abdomen pelvis done 09/29 revealed bilateral infiltrates especially in the bases, worsening small bowel distention. Renal/: Status post left nephroureterectomy. Right hydronephrosis, urology is aware. Dr. Cordero may place a nephrostomy tube for decompression. Strict intake output, monitor and replete electrolites, follow BUN/creatinine. Nephrology following-Dr. Landry. Family informed regarding need for hemodialysis on 10/[address] Landry and wish to hold off. Patient will need hemodialysis at this point if continued aggressive care desired. Will discuss with family regarding placing Vas-Cath and starting hemodialysis today. ID: In view of worsening respiratory status and bandemia, initiated empiric antibiotic coverage with IV cefepime and Flagyl. Blood cultures sent on 09/29 are negative so far. F/u sputum Gram stain and cultures as well as a UA and urine cultures if indicated. Endocrine: Increased from medium to high dose sliding scale insulin in view of hyperglycemia following initiation of TPN. Added Levemir 10 units subcutaneously every 12 hourly on 10/01 Heme: Follow CBC Prophylaxis: Protonix/heparin/SCDs Condition critical. Worsening respiratory failure requiring intubation and mechanical ventilation. Time spent on critical care excluding procedures : 35 minutes Santosh Santana MD October 02, 2016 08:30
[2016-10-02 08:33] LABS: BLOOD GAS BASE EXCESS -7.4 mmol/L (-2-2); BLOOD GAS CARBOXYHEMOGLOBIN 0.5 % (0-4); BLOOD GAS HCO3 19 mmol/L (22-26); BLOOD GAS METHEMOGLOBIN 1.4 % (0-2); BLOOD GAS O2 HGB SATURATION 88 % (90-100); BLOOD GAS OXYGEN CONTENT 14.9 Vol % (12.0-20.0); BLOOD GAS PCO2 52 mmHg (38-42); BLOOD GAS PO2 70 mmHg (61-120); TEMP CORR TO 98.6
[2016-10-02 08:34] LABS: CRITICAL VALUE YES; DRAW SITE RT RADIAL; FIO2 100 %; NUMBER OF ARTERIAL PUNCTURES 1; OXYGEN DEVICE VENTILATOR; STAT YES; ULNAR PULSE PRESENT; VENT SETTINGS AC/RR14/VT500/PEEP12
[2016-10-02] MEDS: OXYBUTYNIN CHLORIDE 5 MG TAB PO SCH ×2 (09:00→12:55)
[2016-10-02] MEDS: DOCUSATE SODIUM 100 MG CAP PO SCH (09:00)
[2016-10-02] MEDS: SODIUM CHLORIDE 0.9% FLUSH 10 ML FLUSH IV FLUSH SCH (09:00)
[2016-10-02] MEDS: METOPROLOL TARTRATE 25 MG TAB PO SCH (09:00)
--- NOTE | 2016-10-02 09:19 | RADRPT ---
EXAM DATE/TIME: 10/02/2016 08:28 [facility] COMPARISON: CHEST SINGLE AP, September 30, 2016, 20:17. INDICATIONS : Respiratory failure. MEDICAL HISTORY : Carcinoma, bladder. Hypertension. Carcinoma, renal SURGICAL HISTORY : Nephrectomy, left ENCOUNTER: Subsequent ACUITY: 1 week PAIN SCORE: Non-responsive. LOCATION: Bilateral chest FINDINGS: A single portable frontal view of the chest shows patchy areas of parenchymal consolidation involving both lung bases. These have shown some improvement from the prior study. No effusions. Heart is norm al in size. Tip of the endotracheal tube 3 cm proximal to the kadi. Left-sided central line. [place] stric tube courses off the inferior margin of the film. CONCLUSION: Improving bibasilar consolidations. Shalom Chery Jr., MD on October 02, 2016 at 9:13 Board Certified Radiologist. This report was verified electronically.
[2016-10-02] MEDS: INSULIN DETEMIR 100 UNITS/ML VIAL SQ SCH (10:15)
--- NOTE | 2016-10-02 11:08 | HHI.NPPN ---
Subjective History of Present Illness This patient is an 81-year-old male referred for evaluation and management of acute renal insufficiency. The patient has a somewhat complicated urological history. Patient was recently seen in the office prior to this admission.According to the records I reviewed there is a history of bladder cancer with resection back in 2012. Patient was subsequently diagnosed as having a bilateral hydronephrosis seen on CT urogram as part of an evaluation for microscopic hematuria. 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 Patient subsequently underwent cystoscopy and bilateral retrograde pyelogram and right ureteroscopy with biopsy of her right distal tumor and bilateral ureteral stent placement April 06, 2016. There was mention of bilateral ureteral laser tumor ablation. The right distal tumor was said to be low grade however the left proximal tumor required extensive ablation and pathology returned as a high grade in the left proximal ureter.The left proximal ureteral lesion was described as high-grade and more extensive and sessile in appearance with a biopsy showing invasion to the sub-2 connective tissue with the positive cytology. It was felt that the patient would benefit from a left nephroureterectomy however the patient was said to be hesitant regarding this option given the severity of his renal insufficiency and other comorbidities. In addition the patient has been using Mobic for chronic hip pain on a daily basis for about 2 years now prior to our evaluation.. Status post left nephroureterectomy 09/21/16. prior to surgery an outpatient nucleogram indicated differential kidney function 10% on the left and 90% on the right. Apparently another nephrology service was consulted and a bumetanide drip was started postop and continued over weekend with associated brisk diuresis and worsening azotemia.Patient developed progressive azotemia. He was being followed by another fisheries enforcement officer at that time. When it was learned that I had established with this patient in the office prior to this admission I was contacted by Dr. Rinaldi to take over care. Interval History Remains intubated and sedated. Family leaning towards not proceeding with dialysis (Amanda Jade) Review of Systems General General Remarks Unable to obtain (Amanda Jade) Respiratory Lungs: SOB (Amanda Jade) Objective Data Data 10/01/16 10/02/16 19:00 07:00 Intake Total 768 ml 2626 ml Output Total 180 ml 442 ml Balance 588 ml 2184 ml IV Total 168 ml 1017 ml TPN/PPN 600 ml 1359 ml Lipid 250 ml Output Urine Total 175 ml 440 ml Gastric Drainage Total 0 ml 0 ml Drainage Total 5 ml 2 ml # Bowel Movements 0 0 Vital Signs Date Time Temp Pulse Resp B/P Pulse Ox O2 Delivery O2 Flow Rate FiO2 10/02/16 10:00 92 10/02/16 08:39 93 100 10/02/16 08:00 87 10/02/16 08:00 100 10/02/16 08:00 99.5 87 22 98/55 89 10/02/16 07:00 90 Mechanical Ventilator 70 10/02/16 06:00 96 10/02/16 05:01 18 10/02/16 04:00 101 10/02/16 04:00 75 10/02/16 04:00 99.0 90 15 123/56 93 10/02/16 03:33 92 70 10/02/16 02:00 102 10/02/16 00:00 100 10/02/16 00:00 152 10/02/16 00:00 99.1 152 14 104/62 94 10/01/16 23:18 94 70 10/01/16 22:00 109 10/01/16 20:00 100 10/01/16 20:00 98.8 99 15 124/59 95 10/01/16 20:00 99 10/01/16 19:32 96 65 10/01/16 19:00 95 Mechanical Ventilator 65 10/01/16 18:00 94 10/01/16 16:00 100 10/01/16 16:00 98.6 95 16 94/53 94 10/01/16 16:00 95 10/01/16 15:34 95 75 10/01/16 14:00 94 10/01/16 12:00 100 10/01/16 12:00 98.8 93 16 109/54 95 10/01/16 12:00 93 10/01/16 11:22 98 85 (Amanda Jade) -: 10/02/16 0530 10/02/16 0530 Microbiology 10/01/16 Gram Stain - Final, Resulted 10/01/16 Sputum Culture, Resulted Pending 10/01/16 Urine Culture, Received Pending Imaging Last Impressions Chest X-Ray 10/02/16 0000 Signed Impressions: Service Date/Time: Sunday, October 02, 2016 08:28 - CONCLUSION: Improving bibasilar consolidations. Shaolm Chery Jr., MD Renal Ultrasound 09/29/16 0000 Signed Impressions: Service Date/Time: Thursday, September 29, 2016 23:35 - CONCLUSION: 1. No significant change in the moderate hydronephrosis of the right collecting system. 2. There appears to be a stone in the lower pole not causing obstruction measuring 9 mm. 3. There continues to be a soft tissue density in the left renal fossa not significantly changed compared to the prior CT exams. Josh Burns MD Lower Extremity Ultrasound 09/29/16 0000 Signed Impressions: Service Date/Time: Thursday, September 29, 2016 23:19 - CONCLUSION: No evidence of DVT. Josh Burns MD Chest CT 09/29/16 0000 Signed Impressions: Service Date/Time: Thursday, September 29, 2016 20:30 - CONCLUSION: Bilateral airspace infiltrates. Curt Bee MD Abdomen/Pelvis CT 09/29/16 0000 Signed Impressions: Service Date/Time: Thursday, September 29, 2016 20:30 - CONCLUSION: Worsening appearance of small bowel obstruction. See above discussion Curt Bee MD Small Bowel X-Ray 09/26/16 0000 Signed Impressions: Service Date/Time: Monday, September 26, 2016 09:10 - CONCLUSION: Diffuse small bowel distention and probable ileus. Wilfredo Stephenson MD Abdomen X-Ray 09/25/16 0000 Signed Impressions: Service Date/Time: Sunday, September 25, 2016 18:35 - CONCLUSION: Moderate diffuse gaseous distention of small bowel Curt Bee MD Medication Review Reported Meds & Active Scripts Active Reported Tylenol Extra Strength (Acetaminophen) 500 Mg Tab 1,000 Mg PO DAILY PRN Amlodipine (Amlodipine Besylate) 10 Mg Tab 10 Mg PO DAILY Vitamin D3 (Cholecalciferol) 5,000 Unit Cap 5,000 Units PO DAILY (Amanda Jade) Physical Exam General Appearance Remarks Intubated, sedated (Amanda Jade) Ears & Nose Ears & Nose Remarks NG tube present R nare (Amanda Jade) Neck Neck Exam: Neck Supple (Amanda Jade) Pulmonary Resp Exam: Clear Bilaterally, Breath Sounds Equal, Decreased Bases Resp Remarks tachypneic (Amanda Jade) Cardiology CV Exam: Regular, Irregular (Amanda Jade) Gastrointestinal/Abdomen GI Exam: Soft, Distended (Amanda Jade) Integumentary Skin Exam: Clear, Warm (Amanda Jade) Extremeties Extremities Exam: Trace Edema Extremeties Remarks bilat hips and hands (Amanda Jade) Neurologic Neuro Exam: Sedated (Amanda Jade) Assessment/Plan Discussed Condition With: Spouse, Son Assessment Summary: [place]A/Acute Renal Failure, CKD Stage III Problem List: (1) Acute renal failure Plan: The patient clinically continues to deteriorate. Azotemia has worsened as well as UOP. Remains on ventilator for respiratory failure which appears to be from PNA-- currently on abx Advised that dialysis would be recommended today to help improve his azotemia as well as improve fluid status. She is quite hesitant about this and says she wishes to speak with her sons who are on their way. She believes that her would not want to undergo these procedures as they have just lost a daughter recently and witnessed prolonged suffering. CC present in room and discussing code status and further wishes. The wishes to await her sons arrival as well as Dr. Cordero who is supposed to be rounding within the next hour. We will await family decision about dialysis. (2) Hypertension Plan: Hypotensive at the present. (3) History of nephroureterectomy Plan: this admission on left side for malignancy (Amanda Jade) Plan The exam, history, and the medical decision-making described in the above note were completed with the assistance of the PARobson. I reviewed and agree with the findings presented. I attest that I had a [id number] encounter with the patient on the same day, and personally performed and documented my assessment and findings in the medical record. (Jason Landry MD) Amanda Jade October 02, 2016 11:08 Jason Landry MD Nov 21, 2016 13:28
[2016-10-02] MEDS: HEPARIN SODIUM - SQ 10,000 UNITS/ML VIAL SQ SCH (12:41)
[2016-10-02] MEDS: PANTOPRAZOLE SODIUM 40 MG VIAL IV PUSH SCH (14:00)
[2016-10-02] MEDS: CEFEPIME INJ 1,000 MG in SODIUM CHLORIDE 0.9% INJ 100 ML IV SCH (15:08)
[2016-10-02] MEDS ORDERED: HYDROmorphone HCL PF 2 MG/ML VIAL IV ONE ×2 (16:00→16:30)
[2016-10-02] MEDS ORDERED: LORazepam 2 MG/ML VIAL IV ONE ×2 (16:00→16:30)
[2016-10-02] MEDS ORDERED: HYOSCYAMINE 0.125 MG TAB PO/SL ONE (16:00)
[2016-10-02] MEDS ORDERED: fentaNYL DRIP 250 ML IV SCH (16:15)
[2016-10-02] MEDS ORDERED: LORazepam 2 MG/ML VIAL IV PUSH ONE (16:15)
--- NOTE | 2016-10-02 16:27 | PD.CONS ---
Consult Service Palliative Care . Consult Requested By Dr. Vicki Santana . Primary Care Physician Wilver Davis Jr, MD . Reason for Consultation a. To assist with evaluation and management of symptoms including: dyspnea, pain, anxiety b. To assist medical decision maker(s) with: better understanding of current medical conditions; weighing benefits/burdens of medical treatment options; making medical treatment decisions. . HPI History of Present Illness Mr. Diaz is an 81-year-old male who was admitted to the intensive care unit on 09/21/16 after undergoing an uncomplicated left nephrectomy and ureter down to the bladder. Hemodynamically stable postoperatively. In the following days, the patient developed new onset atrial fibrillation with RVR, started on Cardizem and Amiodarone. Patient having ongoing nausea and vomiting, NGT to LIWS. CT abdomen/pelvis on 09/23/16 revealed a 2.3 cm left-sided paraumbilical hernia containing a small loop of bowel - partial bowel obstruction and severe right hydronephrosis. BUN/creatinine remains elevated, adequate urine output.. Being followed by urology/nephrology who will decide regarding nephrostomy placement/hemodialysis if needed. On 09/29/2016, the patient became tachypneic and hypoxic requiring 100% nonrebreather. Also in atrial fibrillation with RVR, blood pressure was in the 70s. He was started on Simba-Synephrine, Cardizem drip and Albumin. IVF were discontinued, and the patient received Bumex 2 mg IV 1. discussed possible intubation with the patient's as the patient is not a candidate for BiPAP secondary to the small bowel obstruction. Patient's respiratory status improved briefly, but the patient required intubation and mechanical ventilation on 10/02/16. He was started on TPN. Patient remains sedated on mechanical ventilator secondary to respiratory failure. Chest x-ray on 09/30/2016 showed bibasilar patchiness (left >right) consistent with pneumonia, receiving antibiotics. Worsening azotemia, decreased urine output. BUN: 144, creatinine 6.05, GFR 9. Nephrology spoke with the patient's and hemodialysis was recommended, but she does not leave her would want to undergo these procedures. She stated her their daughter recently , as well as many other family members, and they'll witnessed her prolonged suffering. The patient's and other family members agree that the patient would ask to be made comfortable at this time. Palliative Care was consulted to assist with symptom management and to discuss with the family the benefits and burdens of his current illnesses and the options regarding future care. . Function/Cognitive Trajectory Mr. Diaz is an 81 year old male who as experienced a slow decline over the past 12 months. He has a complex urological history, including bladder cancer. 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 Status post left hip arthroplasty in 12/2016. Weight loss of approximately 15lb since December,. .' Review of Systems ROS Limitations: Clinical Condition (currently sedated, intubated on mechanical ventilator secondary to respiratory failure), Intubated Constitutional: COMPLAINS OF: Weight loss (approximately 15 pounds in the past 10 months.), Change in appetite (on TPN), Generalized weakness Endocrine: DENIES: Polyuria Ears, nose, mouth, throat: DENIES: Epistaxis Respiratory: COMPLAINS OF: Sputum production (sputum culture growing gram- negative rods), Shortness of breath Cardiovascular: DENIES: Lower Extremity Edema Musculoskeletal: COMPLAINS OF: Joint pain Hematologic/Lymphatics: COMPLAINS OF: Bruising Neurologic: COMPLAINS OF: Abnormal gait Psychiatric: COMPLAINS OF: Anxiety Past Family Social History Coded Allergies: Medrol (Verified Adverse Reaction, Unknown, SHAKING, HYPER, INSOMNIA, ) Uncoded Allergies: steroids (Adverse Reaction, Severe, Irritability/Anxiety, 09/20/16) hyper and on edge Past Medical History Hypertension Psoriasis Bladder cancer Left ureteral cancer with nonfunctioning kidney Osteoarthritis . Past Surgical History Abdominal hernia repair Left nephrectomy/neurectomy Left total hip arthroplasty Cataract surgery . Reported Medications Acetaminophen 1000 mg PO daily as needed for pain Amlodipine 10 mg PO daily Vitamin D3 5000 units PO daily . Current Medications Medications (Trade) Dose Ordered Sig/Néstor Route Start Time Stop Time Status Last Admin (NS Flush) 2 ml UNSCH PRN IV FLUSH 09/21/16 12:45 (NS Flush) 2 ml BID IV FLUSH 09/21/16 21:00 10/01/16 20:26 (Percocet 5-325 Mg) 1 tab Q4H PRN PO 09/21/16 12:45 09/25/16 08:07 (Percocet 5-325 Mg) 2 tab Q4H PRN PO 09/21/16 12:45 (Dilaudid Pf Inj) 2 mg Q2H PRN IV 09/21/16 12:45 10/02/16 04:31 (Ditropan) 5 mg TID PO 09/21/16 13:00 09/30/16 17:58 (Zofran Inj) 4 mg Q6H PRN IV 09/21/16 12:45 09/27/16 15:43 (Heparin Inj) 5,000 units Q12H SQ 09/22/16 12:00 10/02/16 12:41 (Trandate Inj) 20 mg Q3H PRN IV PUSH 09/21/16 17:15 09/29/16 04:13 (Apresoline Inj) 10 mg Q2H PRN IV PUSH 09/21/16 17:15 09/24/16 18:23 Docusate Sodium 100 mg 100 mg BID PO 09/23/16 09:00 09/30/16 21:09 (Cardizem Inj/NS Inj) 125 ml @ 0 mls/hr TITRATE IV 09/23/16 08:45 10/02/16 10:15 (Protonix Inj) 40 mg Q24H IV PUSH 09/24/16 14:00 10/01/16 15:54 (Dilaudid Pf Inj) 0.2 mg Q4H PRN IV PUSH 09/24/16 13:00 09/29/16 21:34 (Lopressor) 25 mg Q12HR PO 09/24/16 13:00 09/29/16 08:21 Haloperidol Lactate 2 mg 2 mg Q6H PRN IV PUSH 09/26/16 21:15 09/27/16 00:03 (Cordarone Inj/ D5W ([place]) Inj) 250 ml @ 0 mls/hr CONTINUOUS IV 09/27/16 09:15 (Dulcolax Supp) 10 mg DAILY PRN RECTAL 09/27/16 19:30 Metoclopramide HCl 5 mg 5 mg Q8H IV PUSH 09/28/16 11:00 10/02/16 10:12 Phenylephrine HCl 40 mg/Dextrose 500 ml @ 0 mls/hr TITRATE IV 09/29/16 11:00 10/02/16 11:16 Sodium Chloride 11 meq/Sodium Acetate 59 meq/ Potassium Chloride 40 meq/ Magnesium Chloride 10 meq/ Calcium Chloride 9 meq/ Multivitamins 10 ml/Folic Acid 1 mg/Amino Acids/ Dextrose 2,074.1437 ml @ 83 mls/hr Q24H IV-CENTRAL 09/30/16 20:00 10/01/16 20:28 Fat Emulsion Intravenous 250 ml @ 31.25 mls/ hr Q24H IV-CENTRAL 09/30/16 20:00 10/01/16 20:27 Midazolam HCl 100 ml @ 0 mls/hr TITRATE IV 09/30/16 20:15 10/01/16 21:51 (fentaNYL DRIP) 250 ml @ 0 mls/hr TITRATE IV 09/30/16 20:15 (Levemir Inj) 10 units Q12HR SQ 10/01/16 14:45 10/02/16 10:15 (NovoLOG SUPPLEMENTAL SCALE) 1 Q6HR SQ 10/01/16 18:00 10/02/16 12:45 (D50w (Vial) Inj) 25 ml UNSCH PRN IV 10/01/16 14:45 Glucagon 1 mg 1 mg UNSCH PRN IM/SQ 10/01/16 14:45 Cefepime HCl 1000 mg/Sodium Chloride 100 ml @ 200 mls/hr Q24H IV 10/01/16 16:00 10/01/16 15:55 (Flagyl 500 Mg Inj) 100 ml @ 100 mls/hr Q8H IV 10/01/16 15:00 10/02/16 07:09 . Family History Patient's father and sister with history of lung cancer. Patient's brother from bladder cancer. Substance Use Tobacco: Previous smoker, [id number] history Alcohol: None known Prescription med abuse: None known Illicits: None known . Psychosocial History Patient is originally from [place]. He has been to his , Meena, for approximately 50 years. They may to [place] in the early 1970s. They are supported by a large, close extended family. Multiple family members have recently including the patient's brother and daughter with in the past 1-2 months. . Spiritual/Cultural Factors Tenriism sri Documented care wishes: No documented care wishes are available. . Today's verbally stated goals: Patient is critically ill, currently sedated and intubated on mechanical ventilator. He is unable to verbalize his medical treatment goals. . Family/friends goals: The patient's and family have decided not to proceed with hemodialysis, stating the patient would not want to go undergo these procedures any longer. The patient's states their daughter recently , as well as many other family members, and they witnessed her prolonged suffering. She states she knows her better than anyone, and her decisions are based on what he would want. The patient's is supported by the extended family who agree the patient would request comfort focus care at this time. . Ethical and Legal Issues Per [place] statutes, in the absence of written advanced directives healthcare proxy decision-making falls to the patient's . . Physical Exam Vital Signs Date Time Temp Pulse Resp B/P Pulse Ox O2 Delivery O2 Flow Rate FiO2 10/02/16 12:00 98.3 99 24 103/55 95 10/02/16 12:00 100 10/02/16 12:00 99 10/02/16 11:16 93 100 10/02/16 10:00 92 10/02/16 08:39 93 100 10/02/16 08:00 87 10/02/16 08:00 100 10/02/16 08:00 99.5 87 22 98/55 89 10/02/16 07:00 90 Mechanical Ventilator 70 10/02/16 06:00 96 10/02/16 05:01 18 10/02/16 04:00 101 10/02/16 04:00 75 10/02/16 04:00 99.0 90 15 123/56 93 10/02/16 03:33 92 70 10/02/16 02:00 102 10/02/16 00:00 100 10/02/16 00:00 152 10/02/16 00:00 99.1 152 14 104/62 94 10/01/16 23:18 94 70 10/01/16 22:00 109 10/01/16 20:00 100 10/01/16 20:00 98.8 99 15 124/59 95 10/01/16 20:00 99 10/01/16 19:32 96 65 10/01/16 19:00 95 Mechanical Ventilator 65 10/01/16 18:00 94 10/01/16 16:00 100 10/01/16 16:00 98.6 95 16 94/53 94 10/01/16 16:00 95 10/01/16 15:34 95 75 . 10/01/16 10/02/16 19:00 07:00 Intake Total 768 ml 2626 ml Output Total 180 ml 442 ml Balance 588 ml 2184 ml IV Total 168 ml 1017 ml TPN/PPN 600 ml 1359 ml Lipid 250 ml Output Urine Total 175 ml 440 ml Gastric Drainage Total 0 ml 0 ml Drainage Total 5 ml 2 ml # Bowel Movements 0 0 . Exam CONSTITUTIONAL/GENERAL: This is a frail, elderly male patient currently intubated on mechanical ventilation TUBES/LINES/DRAINS: Left IJ central line, PIV x 2, Valentine catheter SKIN: No jaundice, rashes, or lesions. Ecchymoses on upper extremities. Upper extremities edematous bilaterally HEAD: Atraumatic. Normocephalic. EYES: Pupils equal and round, sluggish. ENT: Unable to assess hearing. Nose without bleeding or purulent drainage. NECK: Trachea midline. CARDIOVASCULAR: Irregularly irregular with no murmurs, gallops, or rubs. No JVD. RESPIRATORY/CHEST: Intubated on mechanical ventilator. Scattered rhonchi. GASTROINTESTINAL: Abdomen soft, non-tender, nondistended. Hypoactive bowel sounds. GENITOURINARY: Without palpable bladder distension. Valentine catheter in place. MUSCULOSKELETAL: Extremities without clubbing, cyanosis, or edema. LYMPHATICS: No palpable cervical or supraclavicular adenopathy. NEUROLOGICAL: Sedated PSYCHIATRIC: Unable to assess secondary to patient's condition. . Diagnostic Tests Laboratory Laboratory Tests Test 09/30/16 09/30/16 09/30/16 09/30/16 05:24 12:00 17:45 21:15 White Blood Count 8.7 TH/MM3 8.3 TH/MM3 (4.0-11.0) (4.0-11.0) Red Blood Count 2.84 MIL/MM3 3.14 MIL/MM3 (4.50-5.90) (4.50-5.90) Hemoglobin 9.6 GM/DL 10.3 GM/DL (13.0-17.0) (13.0-17.0) Hematocrit 28.3 % 30.6 % (39.0-51.0) (39.0-51.0) Mean Corpuscular Volume 99.4 FL 97.6 FL (80.0-100.0) (80.0-100.0) Mean Corpuscular Hemoglobin 33.6 PG 32.8 PG (27.0-34.0) (27.0-34.0) Mean Corpuscular Hemoglobin 33.8 % 33.6 % Concent (32.0-36.0) (32.0-36.0) Red Cell Distribution Width 13.5 % 13.7 % (11.6-17.2) (11.6-17.2) Platelet Count 204 TH/MM3 202 TH/MM3 (150-450) (150-450) Mean Platelet Volume 8.4 FL 8.7 FL (7.0-11.0) (7.0-11.0) Sodium Level 145 MEQ/L 145 MEQ/L (136-145) (136-145) Potassium Level 3.0 MEQ/L 3.4 MEQ/L (3.5-5.1) (3.5-5.1) Chloride Level 111 MEQ/L 108 MEQ/L (98-107) (98-107) Carbon Dioxide Level 21.2 MEQ/L 24.0 MEQ/L (21.0-32.0) (21.0-32.0) Anion Gap 13 MEQ/L (5-15) 13 MEQ/L (5-15) Blood Urea Nitrogen 112 MG/DL 120 MG/DL (7-18) (7-18) Creatinine 4.41 MG/DL 4.77 MG/DL (0.60-1.30) (0.60-1.30) Estimat Glomerular Filtration 13 ML/MIN (>89) 12 ML/MIN (>89) Rate Random Glucose 149 MG/DL 125 MG/DL (74-106) (74-106) Calcium Level 7.0 MG/DL 8.1 MG/DL (8.5-10.1) (8.5-10.1) Phosphorus Level 4.6 MG/DL (2.5-4.9) Magnesium Level 2.7 MG/DL (1.5-2.5) Albumin 2.1 GM/DL 2.4 GM/DL (3.4-5.0) (3.4-5.0) Blood Gas Puncture Site LT RADIAL RT RADIAL Blood Gas Patient Temperature 98.6 98.6 Blood Gas HCO3 21 mmol/L 21 mmol/L (22-26) (22-26) Blood Gas Base Excess -2.1 mmol/L -3.4 mmol/L (-2-2) (-2-2) Blood Gas Oxygen Saturation 88 % (90-100) 94 % (90-100) Arterial Blood pH 7.46 7.36 (7.380-7.420) (7.380-7.420) Arterial Blood Partial 30 mmHg (38-42) 38 mmHg (38-42) Pressure CO2 Arterial Blood Partial 61 mmHg 97 mmHg Pressure O2 (61-120) (61-120) Arterial Blood Oxygen Content 15.4 Vol % 18.4 Vol % (12.0-20.0) (12.0-20.0) Arterial Blood 0.9 % (0-4) 0.5 % (0-4) Carboxyhemoglobin Arterial Blood Methemoglobin 1.5 % (0-2) 1.4 % (0-2) Blood Gas Hemoglobin 12.4 G/DL 13.8 G/DL (12.0-16.0) (12.0-16.0) Oxygen Delivery Device NONREBREATHER VENTILATOR Blood Gas Liter Flow 15 L/M Blood Gas Inspired Oxygen 100 % 100 % Neutrophils (%) (Auto) 88.1 % (16.0-70.0) Lymphocytes (%) (Auto) 2.5 % (9.0-44.0) Monocytes (%) (Auto) 9.2 % (0.0-8.0) Eosinophils (%) (Auto) 0.0 % (0.0-4.0) Basophils (%) (Auto) 0.2 % (0.0-2.0) Neutrophils # (Auto) 7.4 TH/MM3 (1.8-7.7) Lymphocytes # (Auto) 0.2 TH/MM3 (1.0-4.8) Monocytes # (Auto) 0.8 TH/MM3 (0-0.9) Eosinophils # (Auto) 0.0 TH/MM3 (0-0.4) Basophils # (Auto) 0.0 TH/MM3 (0-0.2) CBC Comment AUTO DIFF Differential Total Cells 100 Counted Neutrophils % (Manual) 68 % (16-70) Band Neutrophils % 25 % (0-6) Lymphocytes % 3 % (9-44) Monocytes % 3 % (0-8) Neutrophils # (Manual) 7.8 TH/MM3 (1.8-7.7) Metamyelocytes 1 % (0-1) Differential Comment FINAL DIFF MANUAL Toxic Granulation 1+ (NORMAL) Dohle Bodies PRESENT (NONE SEEN) Platelet Estimate NORMAL (NORMAL) Platelet Morphology Comment NORMAL (NORMAL) Red Cell Morphology Comment NORMAL (NORMAL) Prothrombin Time 20.7 SEC (9.8-11.6) Prothromb Time International 1.8 RATIO Ratio Total Bilirubin 2.5 MG/DL (0.2-1.0) Aspartate Amino Transf 22 U/L (15-37) (AST/SGOT) Alanine Aminotransferase 14 U/L (12-78) (ALT/SGPT) Alkaline Phosphatase 78 U/L (45-117) Total Protein 6.4 GM/DL (6.4-8.2) Triglycerides Level 467 MG/DL (42-150) Blood Gas Ventilator Setting Test 10/01/16 10/01/16 10/02/16 10/02/16 05:00 20:13 05:30 08:22 Sodium Level 143 MEQ/L 141 MEQ/L (136-145) (136-145) Potassium Level 3.3 MEQ/L 3.7 MEQ/L (3.5-5.1) (3.5-5.1) Chloride Level 109 MEQ/L 110 MEQ/L (98-107) (98-107) Carbon Dioxide Level 23.5 MEQ/L 21.2 MEQ/L (21.0-32.0) (21.0-32.0) Anion Gap 11 MEQ/L (5-15) 10 MEQ/L (5-15) Blood Urea Nitrogen 128 MG/DL 144 MG/DL (7-18) (7-18) Creatinine 5.12 MG/DL 6.05 MG/DL (0.60-1.30) (0.60-1.30) Estimat Glomerular Filtration 11 ML/MIN (>89) 9 ML/MIN (>89) Rate Random Glucose 280 MG/DL 278 MG/DL (74-106) (74-106) Calcium Level 7.7 MG/DL 7.6 MG/DL (8.5-10.1) (8.5-10.1) Phosphorus Level 4.0 MG/DL 2.7 MG/DL (2.5-4.9) (2.5-4.9) Magnesium Level 3.1 MG/DL 3.2 MG/DL (1.5-2.5) (1.5-2.5) Urine Color YELLOW (YELLW/STRAW) Urine Turbidity HAZY (CLEAR) Urine pH 5.0 (5.0-8.5) Urine Specific [place] 1.014 (1.002-1.035) Urine Protein 30 mg/dL (NEG-TRACE) Urine Glucose (UA) NEG mg/dL (NEG) Urine Ketones NEG mg/dL (NEG) Urine Occult Blood NEG (NEG) Urine Nitrite NEG (NEG) Urine Bilirubin NEG (NEG) Urine Urobilinogen LESS THAN 2.0 MG/DL (LESS THAN 2.0) Urine Leukocyte Esterase TRACE (NEG) Urine RBC 2 /hpf (0-3) Urine WBC 5 /hpf (0-5) Urine Squamous Epithelial <1 /hpf (0-5) Cells Urine Amorphous Sediment RARE Urine Bacteria OCC /hpf (NONE) Urine Mucus FEW /lpf (OCC) Microscopic Urinalysis Comment CATH-CULTURE IND White Blood Count 13.7 TH/MM3 (4.0-11.0) Red Blood Count 2.71 MIL/MM3 (4.50-5.90) Hemoglobin 9.1 GM/DL (13.0-17.0) Hematocrit 26.9 % (39.0-51.0) Mean Corpuscular Volume 99.2 FL (80.0-100.0) Mean Corpuscular Hemoglobin 33.4 PG (27.0-34.0) Mean Corpuscular Hemoglobin 33.7 % Concent (32.0-36.0) Red Cell Distribution Width 14.3 % (11.6-17.2) Platelet Count 262 TH/MM3 (150-450) Mean Platelet Volume 9.0 FL (7.0-11.0) Neutrophils (%) (Auto) 92.5 % (16.0-70.0) Lymphocytes (%) (Auto) 1.8 % (9.0-44.0) Monocytes (%) (Auto) 4.6 % (0.0-8.0) Eosinophils (%) (Auto) 0.7 % (0.0-4.0) Basophils (%) (Auto) 0.4 % (0.0-2.0) Neutrophils # (Auto) 12.7 TH/MM3 (1.8-7.7) Lymphocytes # (Auto) 0.3 TH/MM3 (1.0-4.8) Monocytes # (Auto) 0.6 TH/MM3 (0-0.9) Eosinophils # (Auto) 0.1 TH/MM3 (0-0.4) Basophils # (Auto) 0.1 TH/MM3 (0-0.2) CBC Comment AUTO DIFF Differential Total Cells 100 Counted Neutrophils % (Manual) 67 % (16-70) Band Neutrophils % 18 % (0-6) Lymphocytes % 6 % (9-44) Monocytes % 7 % (0-8) Eosinophils % 2 % (0-4) Neutrophils # (Manual) 11.6 TH/MM3 (1.8-7.7) Differential Comment FINAL DIFF MANUAL Toxic Vacuolation PRESENT (NONE SEEN) Dohle Bodies PRESENT (NONE SEEN) Platelet Estimate NORMAL (NORMAL) Platelet Morphology Comment NORMAL (NORMAL) Total Bilirubin 1.5 MG/DL (0.2-1.0) Aspartate Amino Transf 15 U/L (15-37) (AST/SGOT) Alanine Aminotransferase 12 U/L (12-78) (ALT/SGPT) Alkaline Phosphatase 77 U/L (45-117) Total Protein 5.9 GM/DL (6.4-8.2) Albumin 1.9 GM/DL (3.4-5.0) Blood Gas Puncture Site RT RADIAL Blood Gas Patient Temperature 98.6 Blood Gas HCO3 19 mmol/L (22-26) Blood Gas Base Excess -7.4 mmol/L (-2-2) Blood Gas Oxygen Saturation 88 % (90-100) Arterial Blood pH 7.19 (7.380-7.420) Arterial Blood Partial 52 mmHg (38-42) Pressure CO2 Arterial Blood Partial 70 mmHg Pressure O2 (61-120) Arterial Blood Oxygen Content 14.9 Vol % (12.0-20.0) Arterial Blood 0.5 % (0-4) Carboxyhemoglobin Arterial Blood Methemoglobin 1.4 % (0-2) Blood Gas Hemoglobin 12.0 G/DL (12.0-16.0) Oxygen Delivery Device VENTILATOR Blood Gas Ventilator Setting AC/RR14/VT500/PEEP12 Blood Gas Inspired Oxygen 100 % . Result Diagram: 10/02/16 0530 10/02/16 0530 Microbiology Microbiology Date/Time Procedure Status Source Growth 10/01/16 17:32 Gram Stain - Final Resulted Sputum Endotracheal 10/01/16 17:32 Sputum Culture - Preliminary Resulted Gram Negative Bear 10/01/16 20:13 Urine Culture - Preliminary Resulted Urine Catheterized Urine NO GROWTH IN 24 HOURS. . Imaging Last 72 hours Impressions Chest X-Ray 10/02/16 0000 Signed Impressions: Service Date/Time: Sunday, October 02, 2016 08:28 - CONCLUSION: Improving bibasilar consolidations. Shalom Chery Jr., MD Chest X-Ray 09/30/16 0000 Signed Impressions: Service Date/Time: Friday, September 30, 2016 20:17 - CONCLUSION: 1. Bibasilar patchiness (left worse than right) consistent with probable mild pneumonia. Clinical correlation is recommended. 2. Multiple tubes and lines are stable. 3. Endotracheal tube in good position 4 cm above the kadi. Eric Manzanares MD Chest X-Ray 09/30/16 0000 Signed Impressions: Service Date/Time: Friday, September 30, 2016 12:33 - CONCLUSION: Bibasilar densities likely atelectasis. Wilfredo Stephenson MD . Procedures 09/30/16: Endotracheal intubation Patient/Family Conference Present at Family Conference: Met with patient's and extended family at patient's bedside and privately in the hallway. Family Conference Location: Bedside, Hallway Issues Discussed: * Palliative care role, purpose, approach * Additional medical, psychosocial, and spiritual history * Patients general health, functional status, and cognitive changes in the months leading up to the current hospitalization * Patient/family understanding of the current medical problems * Patient/family understanding of prognosis * Patients goals of care as best understood from advance directives and/or conversations and/or values * Current medical treatment options and benefits/burdens of those options * Likely scenarios comparing ongoing aggressive care with a transition to comfort measures only * Questions answered to the best of my ability * Palliative care contact information provided . Assessment and Plan Disease Oriented Problem List: (1) Acute respiratory distress (2) Hypertension (3) Atrial fibrillation (4) Probable sepsis (5) Bladder cancer (6) Osteoarthritis of left hip (7) Acute renal failure (8) History of nephroureterectomy (9) Status post total hip replacement, left Symptom Scale: (1) Pain (2) Dyspnea (3) Anxiety Pertinent Non-Medical Issues Psychosocial: Patient is originally from [place]. He has been to his , Meena, for approximately 50 years. They may to [place] in the early 1970s. They are supported by a large, close extended family. Multiple family members have recently including the patient's brother and daughter with in the past 1-2 months. Spiritual: Tenriism sri Legal: Per [place] statutes, in the absence of written advanced directives healthcare proxy decision-making falls to the patient's . Ethical issues impacting care: No known ethical issues impacting care at this time. . Important Contacts Meena Diaz,spouse: [phone] . Prognosis Patient is an 81-year-old male who has experienced an acute decline status post left nephrectomy on 09/21/2016. He is currently sedated and intubated on mechanical ventilator secondary to acute respiratory failure, bilateral infiltrates with bandemia and suspected sepsis. Patient is in acute renal failure and nephrology has made recommendations for hemodialysis dialysis. However, the patient's and family have decided not to proceed with hemodialysis which certainly impact the patient life expectancy. Additional factors include the patient's advanced age, recent decline, acute respiratory failure, suspected sepsis etc. Prognosis is poor. . Code Status: No Code Plan * NO CODE * Decision-making: Per [place] statutes, in the absence of written advanced directives healthcare proxy decision making falls to the patient's (Za Diaz). * Goals: The patient's and family have decided not to proceed with hemodialysis, stating the patient would not want to go undergo these procedures any longer. The patient's states their daughter recently , as well as many other family members, and they witnessed her prolonged suffering. She states she knows her better than anyone, and her decisions are based on what he would want. The patient's is supported by the extended family who agree the patient would request comfort focus care at this time. * Exhibits B and C are signed and have been placed on patient's chart. * Discussed with Dr. Vicki Santana, Dr. Crisostomo and patient's nurse (Bryan). * Orders for comfort medications completed in computer. * [employer] has been contacted, and ring awaiting arrival for veterans pending. * Palliative care will continue to follow this patient throughout his hospitalization to establish trust and assist with symptom management. * Palliative care contact information provided to the patient's family. . Thank you for the opportunity to participate in the care of Mr. Diaz. Attestation To help prompt me to consider important information that might be impacting today's encounter and assessment, information from prior notes written by myself or my colleagues may have been "brought forward" into today's note. My signature on this note, however, is an attestation that I personally performed the exam, history, and/or decision-making noted today, and, unless otherwise indicated, the interactions with patient, family, and staff as well as the review of records all occurred today. I also attest that the listed assessment and stated plan reflect my best clinical judgment today based on the combination of historical information, prior notes, and today's exam/ interactions. When time spent is documented, it refers only to time spent today by the signer, or if indicated, combined time spent today by collaborating physician/nurse practitioner. . Angeles Ruby October 02, 2016 15:55
[2016-10-02] MEDS ORDERED: LORazepam 2 MG/ML VIAL IVS PRN (16:30)
[2016-10-02] MEDS ORDERED: BISACODYL 10 MG SUPP RECTAL PRN (16:30)
[2016-10-02] MEDS ORDERED: FUROSEMIDE 20 MG/2 ML VIAL IV PRN (16:30)
[2016-10-02] MEDS ORDERED: HYOSCYAMINE 0.5 MG/ML AMP IV PRN (16:30)
[2016-10-02] MEDS ORDERED: HYDROmorphone HCL PF 2 MG/ML VIAL IV PRN ×2 (16:30)
[2016-10-02] MEDS ORDERED: LORazepam 2 MG/ML VIAL IV PRN ×2 (16:30)
[2016-10-02] MEDS ORDERED: ACETAMINOPHEN 650 MG SUPP RECTAL PRN (16:30)
--- NOTE | 2016-10-02 19:01 | HHI.PR ---
Subjective Patient symptoms today Patient's clinical status continued to decline overnight. His renal function worsened as well as respiratory status. Discussion was had with the patient's as well as family members regarding his clinical status. Recommended dialysis at this point, however the family and have agreed together they do not wish for any further treatment. They have experienced significant loss and suffering with recent family members and do not wish for the patient to go through the same. Patient had discussed with his prior that he does not wish for any heroic measures or prolonged artifical measures to keep him alive. It is the family's understanding that the patient would not wish to be intubated or undergo dialysis. We discussed that without any intervention at this point the likelihood of further renal deterioration and respiratory failure leading to would be inevitable. The patient's and family understand this and have reached a joint agreement that they will not pursue any dialysis and would like the breathing tube to be removed. We also reviewed his pathology results from the surgery. 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 This was explained to the patient's and family in detail. Palliative care was subsequently consulted with proper measures taken to make the patient comfortable. Patient was extubated around 1630 this afternoon and shortly afterwards. He was accompanied by his and multiple family members. Objective Result Diagram: 10/02/16 0530 10/02/16 0530 Boaz Cordero MD October 02, 2016 19:01
[2016-10-02] MEDS ORDERED: HYDROmorphone HCL PF 2 MG/ML VIAL IV SCH (20:00)
[2016-10-02] MEDS ORDERED: LORazepam 2 MG/ML VIAL IV SCH (20:00)
--- NOTE | 2016-10-27 20:56 | HHI.DS ---
Discharge Summary Admission Date September 21, 2016 at 05:21 Admitting Diagnosis Hospital Course Patient underwent hand assist lap nephroureterectomy. Post-op he suffered renal failure, Afib, and ileus requiring NGT. Patient then developed respiratory failure, requiring intubation. At this point the family wished to withdraw care. Family wishes were honored and the patient passed with family present. Boaz Cordero MD Oct 27, 2016 20:55
== END 2016-10-02 18:17 | disposition expired | DRG 656 ==
LOC: HSDI 09-21 05:21 → N03B 09-21 16:04
PROVIDERS: ADMIT Urology; ATTEND Urology
PROC: 0TT70ZZ Resection of Left Ureter, Open Approach (ICD-10-PCS; 2016-09-21)
PROC: 0TP98DZ Removal of Intraluminal Device from Ureter, Via Natural or Artificial Opening Endoscopic (ICD-10-PCS; 2016-09-21)
PROC: 0TT10ZZ Resection of Left Kidney, Open Approach (ICD-10-PCS; principal; 2016-09-21 07:32)
PROC: 0BH17EZ Insertion of Endotracheal Airway into Trachea, Via Natural or Artificial Opening (ICD-10-PCS; 2016-09-30)
PROC: 5A1945Z Respiratory Ventilation, 24-96 Consecutive Hours (ICD-10-PCS; 2016-09-30)
DX: C66.2 Malignant neoplasm of left ureter (principal); J96.01 Acute respiratory failure with hypoxia; J18.9 Pneumonia, unspecified organism; A41.9 Sepsis, unspecified organism; Z51.5 Encounter for palliative care; J90 Pleural effusion, not elsewhere classified; N17.9 Acute kidney failure, unspecified; I95.9 Hypotension, unspecified; E87.2 Acidosis; K42.0 Umbilical hernia with obstruction, without gangrene; N13.30 Unspecified hydronephrosis; C65.2 Malignant neoplasm of left renal pelvis; J98.11 Atelectasis; C77.5 Secondary and unspecified malignant neoplasm of intrapelvic lymph nodes; N18.3 Chronic kidney disease, stage 3 (moderate); E83.41 Hypermagnesemia; E87.5 Hyperkalemia; I48.0 Paroxysmal atrial fibrillation; I12.9 Hypertensive chronic kidney disease with stage 1 through stage 4 chronic kidney disease, or unspecified chronic kidney disease; R63.4 Abnormal weight loss; F41.9 Anxiety disorder, unspecified; L40.9 Psoriasis, unspecified; Z87.891 Personal history of nicotine dependence; E87.6 Hypokalemia; R12 Heartburn; I49.3 Ventricular premature depolarization; R73.9 Hyperglycemia, unspecified; M19.90 Unspecified osteoarthritis, unspecified site; Z66 Do not resuscitate; Z80.52 Family history of malignant neoplasm of bladder; Z85.51 Personal history of malignant neoplasm of bladder; Z96.642 Presence of left artificial hip joint
CPT/HCPCS: 36556; 36600; 71010; 71250; 74000; 74176; 74250; 76775; 76937; 80048; 80053; 80069; 81001; 82306; 82805; 82948; 83735; 83880; 83970; 84100; 84132; 84155; 84478; 84484; 85007; 85025; 85027; 85610; 86850; 86900; 86901; 86920; 87040; 87070; 87077; 87086; 87186; 87205; 87641; 88307; 93005; 93970; 94002; 94003; 94640; 94664; C9113; J0131; J0282; J0330; J0360; J0690; J0692; J1160; J1170; J1630; J1644; J1815; J1940; J2060; J2250; J2270; J2370; J2405; J2710; J2765; J3010; J3475; J3480; J7030; J7040; J7060; J7120; P9047